=== PATIENT | male | born 2000 ===

== ENCOUNTER 2020-07-10 07:03 | Outpatient (REF) | payer OTHER, SELFPAY ==
[2020-07-10 07:54] LABS: MANUAL DIFF FLAG NO
[2020-07-10 08:11] LABS: Estimated Average Glucose 80 mg/dL; Hemoglobin A1c % 4.4 %
[2020-07-10 08:12] LABS: Basophils Percent Auto 0.3 % (0-2); Eosinophils Absolute Auto 0.3 X10*3/uL (0.0-0.4); Hematocrit 38.5 % (42-52); Hemoglobin 12.4 g/dl (14.0-18.0); Imm Gran Abs Auto 0.04 X10*3/uL (0.00-0.03); Imm Gran Pct Auto 0.3 % (0.0-0.4); Lymphocytes Absolute Auto 2.8 X10*3/uL (1.2-4.9); Lymphocytes Percent Auto 24.2 % (20-40); Mean Corpuscular HGB Conc 32.2 g/dl (31.0-36.0); Mean Corpuscular Hemoglobin 26.4 pg (27.0-33.0); Mean Corpuscular Volume 82.1 fL (80-98); Mean Platelet Volume 9.5 fL (9.4-12.4); Monocytes Absolute Auto 0.8 X10*3/uL (0.1-1.2); Monocytes Percent Auto 6.6 % (2-11); Neutrophils Absolute Auto 7.5 X10*3/uL (2.0-8.3); Neutrophils Percent Auto 65.6 % (45-73); Platelet Count 363 X10*3/uL (160-400); Red Blood Count 4.69 X10*6/uL (4.60-5.80); White Blood Count 11.4 X10*3/uL (4.8-10.8)
[2020-07-10 08:21] LABS: Lithium 1.19 mmol/L (0.60-1.20)
[2020-07-10 08:25] LABS: Alanine Aminotransferase 60 U/L (0-40); Albumin Level 4.3 g/dL (3.5-5.0); Alkaline Phosphatase 103 U/L (39-117); Anion Gap 11 (12-20); Aspartate Amino Transferase 18 U/L (5-37); Bilirubin Total 0.5 mg/dL (0.0-1.0); Blood Urea Nitrogen 10 mg/dL (9-16); Calcium 9.5 mg/dL (8.4-10.2); Carbon Dioxide 25 mmol/L (22-29); Chloride 108 mmol/L (96-108); Cholesterol 161 mg/dL; Estimated Glomerular Filt Rate > 60; Glucose Fasting 99 mg/dL (60-99); HDL Cholesterol 28 mg/dL; Iron 96 mcg/dL (45-160); LDL Cholesterol Calculated 92 mg/dl; Magnesium 2.2 mg/dL (1.6-2.6); Percent Iron Saturation 33 % (15-50); Sodium 140 mmol/L (135-145); Total Iron Binding Capacity 291 mcg/dL (228-428); Total Protein 7.4 g/dL (6.5-8.0); Triglycerides 207 mg/dL; Unsaturated Iron Binding 195 ug/dL
[2020-07-10 09:09] LABS: Ferritin 189 ng/mL (20-250); Vitamin D 25-OH Total 21.6 ng/mL (>30)
[2020-07-10 09:25] LABS: Folate 9.8 ng/mL (> or = 4.0); Vitamin B12 336 pg/mL (200-900)
[2020-07-10 09:38] LABS: T4 Thyroxine 9.5 ug/dL (4.5-12.0)
[2020-07-10 10:02] LABS: TSH reflex Free T4 < 0.01 mIU/mL (0.32-4.0)
[2020-07-10 11:01] LABS: Free T4 (Free Thyroxine) 1.41 ng/dL (0.71-1.85)
[2020-07-11 18:37] LABS: Prolactin 57.8 ng/mL (2.0-18.0)
== END 2020-07-10 07:04 | disposition home or self-care (01) ==
LOC: HO.LAB 07:03
PROVIDERS: Visit Provider Counselor Addiction (Substance Use Disorder)
DX: F84.0 Autistic disorder (principal); F25.1 Schizoaffective disorder, depressive type; F41.0 Panic disorder [episodic paroxysmal anxiety]; E03.9 Hypothyroidism, unspecified; E66.09 Other obesity due to excess calories; Z79.899 Other long term (current) drug therapy
CPT/HCPCS: 36415; 80053; 80061; 80178; 82306; 82607; 82728; 82746; 83036; 83540; 83735; 84146; 84436; 84439; 84443; 85025

== ENCOUNTER 2020-09-09 10:11 | Emergency (ER) | payer OTHER, SELFPAY ==
[2020-09-09 10:57] VITALS: BP 132/80; PULSE 94; RESP 16; TEMP 37.3; O2SAT 99; BMI 42.5
--- NOTE | 2020-09-09 11:45 | ED_ITS ---
HPI - Skin/Abscess/Foreign Bdy General Chief complaint: Skin/Abscess/Foreign Body Stated complaint: itchy scalp Time Seen by Provider: 09/09/20 11:12 Source: patient Mode of arrival: ambulatory Limitations: no limitations History of Present Illness HPI narrative: 20 y/o male with history of autism, schizophrenia who presents to the ER with 2 areas of itchy, flakey areas on his scalp for the last few days as well as painful reddened area on the back of his neck. He is concerned he is going to lose his hair. His mom used anti-itching lice shampoo last night with no improvement. No history of lice and no known nits. MD complaint: abscess/boil and lesion Onset (ago): day(s) (3) Tetanus up to date: unsure Location: head and neck Severity: mild Quality: burning, aching and pruritic Pain Consistency: intermittent Relieving factors: none Exacerbating factors: none Context: none Associated symptoms: itching Treatments prior to arrival: none Related Data Previous Rx's Medication Instructions Recorded doxycycline monohydrate 100 mg PO BID #14 tab 09/09/20 Allergies Allergy/AdvReac Type Severity Reaction Status Date / Time Penicillins [PENICILLINS] Allergy Intermediate RASH Unverified 05/29/20 16:56 ibuprofen [From MOTRIN] Allergy Unknown RASH Unverified 05/29/20 16:56 aspartame [ASPARTAME] AdvReac Intermediate VOMITING Unverified 07/10/20 08:24 quetiapine [From SEROQUEL] AdvReac Unknown AGITATION Unverified 05/29/20 16:56 Motrin Allergy Unknown turns red Uncoded 07/19/12 00:00 Penicillin Allergy Unknown rash Uncoded 07/19/12 00:00 Review of Systems Review of Systems: Constitutional: No Fever, No Chills Cardiovascular: No Chest Pain, No SOB, No Orthopnea, No Edema Genitourinary: No Dysuria, No Urinary Frequency, No Hematuria Musculoskeletal: No joint pain, No Myalgias Skin: + Skin Lesions, + rash Neuro: No Dizziness, No Headache Psych: + Anxiety/Panic, No Depression Heme/Lymph: No Bruising, No Lymphadenopathy PMFSH Past Medical History Attestation statement: The following information was validated with the patient. Medical History Asthma Autistic disorder Depression Schizophrenia Social History Social History Advance Directives: No Advance Directives Information Provided: No Physical Exam Vital Signs: Vital Signs: Last Vital Signs Temp 99.2 F 09/09/20 10:57 Pulse 94 09/09/20 10:57 Resp 16 09/09/20 10:57 BP 132/80 09/09/20 10:57 Pulse Ox 99 09/09/20 10:57 Body Mass Index 42.5 Appearance: Alert. Oriented X3. No acute distress. HEENT: scalp with 2 small areas of flakey skin, one right temporal area and other on vertex, no surrounding erythema or drainge, no scalp nits. Neck: 2-3 cm erythematous, warm tender indurated area with small area of central fluctuance along posterior hairline. no red streaking. no LAD. CVS: Normal heart rate and rhythm. Pulses normal. Respiratory: No respiratory distress. Skin: Skin warm and dry. Normal skin color. Normal skin turgor. No rashes. Extremities: no LE edema Neuro: Oriented X 3. No motor deficit. No sensory deficit. Course Course Course Narrative: 20 y/o male presenting with itchy areas on his scalp consistent with tinea capitus as well as small posterior neck abscess. Will place on abx for this. Management of both diagnoses were discussed and patient will f/u with his PCP this week. Stable for d/c. Procedures Abscess I/D Site: neck Technique: incised with blade Sent for culture/gram staining?: No Irrigation: Yes Packing used?: none MDM - Skin/Abscess/Foreign Bdy Differential Diagnosis Differential diagnosis: Likely abscess of skin or subcutaneous tissue, cellulitis, eczema and contact dermatitis Medical Records Attestation: I reviewed the patient's medical records. Critical Care Time Critical Care Time Critical Care Time: No Discharge Plan Discharge Clinical Impression: Tinea capitis Abscess of skin or subcutaneous tissue Qualifiers: Site of cutaneous abscess: neck Qualified Code(s): L02.11 - Cutaneous abscess of neck Cellulitis Qualifiers: Site of cellulitis: neck Qualified Code(s): L03.221 - Cellulitis of neck Patient Disposition: Home, Self-Care Instructions: Tinea Capitis (ED), Abscess (ED) Additional Instructions: You have small patches of a fungal infection on your scalp. This is easily treated with Selsun Blue shampoo which is found in your local drug store or grocery store. You also have a small bacterial infection on the back of your neck. Take the prescribed antibiotics for this. Use warm compresses to the area several times per day. Follow up with your doctor this week. If you have worsening redness, pain, swelling of the area call your doctor or come back to the ER for further evaluation. Prescriptions: New doxycycline monohydrate 100 mg tablet 100 mg PO BID Qty: 14 RF: 0 Print Language: Amharic
== END 2020-09-09 12:01 | disposition home or self-care (01) ==
PROVIDERS: Emergency Provider Emergency Medicine Emergency Medical Services; PCP Pediatrics
DX: L02.11 Cutaneous abscess of neck (principal); B35.0 Tinea barbae and tinea capitis; L03.221 Cellulitis of neck
CPT/HCPCS: 10060; 99282; 99284

== ENCOUNTER 2020-10-22 07:10 | Outpatient (REF) | payer OTHER, SELFPAY ==
[2020-10-22 08:11] LABS: MANUAL DIFF FLAG NO
[2020-10-22 08:17] LABS: Basophils Absolute Auto 0.1 X10*3/uL (0.0-0.2); Basophils Percent Auto 0.5 % (0-2); Eosinophils Absolute Auto 0.4 X10*3/uL (0.0-0.4); Eosinophils Percent Auto 3.4 % (0-4); Hematocrit 37.7 % (42-52); Hemoglobin 12.4 g/dl (14.0-18.0); Imm Gran Abs Auto 0.05 X10*3/uL (0.00-0.03); Imm Gran Pct Auto 0.5 % (0.0-0.4); Lymphocytes Absolute Auto 2.6 X10*3/uL (1.2-4.9); Lymphocytes Percent Auto 24.1 % (20-40); Mean Corpuscular HGB Conc 32.9 g/dl (31.0-36.0); Mean Corpuscular Hemoglobin 27.1 pg (27.0-33.0); Mean Corpuscular Volume 82.3 fL (80-98); Mean Platelet Volume 9.5 fL (9.4-12.4); Monocytes Absolute Auto 0.7 X10*3/uL (0.1-1.2); Monocytes Percent Auto 6.2 % (2-11); Neutrophils Percent Auto 65.3 % (45-73); Platelet Count 369 X10*3/uL (160-400); Red Blood Count 4.58 X10*6/uL (4.60-5.80); Red Cell Distribution Width 13.4 % (11.0-16.0); White Blood Count 10.7 X10*3/uL (4.8-10.8)
[2020-10-22 08:25] LABS: Glucose Urine UA NEG (NEG); Leukocyte Esterase Urine NEG (NEG); Nitrite Urine NEG (NEG); Specific Gravity - Urine <= 1.005 (1.005-1.025); Urine Blood NEG (NEG); Urine Ketones NEG (NEG); Urine Protein NEG (NEG-TRACE)
[2020-10-22 08:27] LABS: Color Urine STRAW
[2020-10-22 08:28] LABS: Appearance Urine CLEAR
[2020-10-22 08:44] LABS: Alanine Aminotransferase 41 U/L (0-40); Albumin Level 4.3 g/dL (3.5-5.0); Alkaline Phosphatase 111 U/L (39-117); Anion Gap 10 (12-20); Aspartate Amino Transferase 13 U/L (5-37); Bilirubin Total 0.4 mg/dL (0.0-1.0); Blood Urea Nitrogen 9 mg/dL (9-16); Calcium 9.8 mg/dL (8.4-10.2); Carbon Dioxide 27 mmol/L (22-29); Chloride 109 mmol/L (96-108); Cholesterol 166 mg/dL; Estimated Glomerular Filt Rate > 60; Glucose Random 91 mg/dL (60-115); HDL Cholesterol 32 mg/dL; LDL Cholesterol Calculated 107 mg/dl; Potassium 4.1 mmol/L (3.3-5.1); Sodium 142 mmol/L (135-145); Total Protein 7.1 g/dL (6.5-8.0); Triglycerides 135 mg/dL
[2020-10-22 08:58] LABS: TSH reflex Free T4 < 0.01 uIU/mL (0.32-4.0)
[2020-10-22 09:35] LABS: Folate 9.2 ng/mL (> or = 4.0); Vitamin B12 283 pg/mL (200-900)
[2020-10-22 09:41] LABS: Estimated Average Glucose 80 mg/dL; Hemoglobin A1c % 4.4 %
[2020-10-23 02:32] LABS: Prolactin 53.9 ng/mL (2.0-18.0)
[2020-10-23 09:13] LABS: Triiodothyronine T3 Free 3.2 pg/mL (3.0-4.7)
== END 2020-10-22 07:11 | disposition home or self-care (01) ==
LOC: HO.LAB 07:10
PROVIDERS: PCP Pediatrics; Visit Provider Counselor Mental Health
DX: F84.0 Autistic disorder (principal)
CPT/HCPCS: 36415; 80053; 80061; 80178; 81003; 82607; 82746; 83036; 84146; 84439; 84443; 84481; 85025

== ENCOUNTER 2020-11-05 06:54 | Outpatient (REF) | payer OTHER, SELFPAY ==
[2020-11-05 08:01] LABS: MANUAL DIFF FLAG NO
[2020-11-05 08:06] LABS: Basophils Absolute Auto 0.1 X10*3/uL (0.0-0.2); Basophils Percent Auto 0.6 % (0-2); Eosinophils Absolute Auto 0.4 X10*3/uL (0.0-0.4); Eosinophils Percent Auto 3.9 % (0-4); Hematocrit 35.7 % (42-52); Hemoglobin 12.1 g/dl (14.0-18.0); Imm Gran Abs Auto 0.04 X10*3/uL (0.00-0.03); Imm Gran Pct Auto 0.4 % (0.0-0.4); Lymphocytes Absolute Auto 2.9 X10*3/uL (1.2-4.9); Lymphocytes Percent Auto 27.1 % (20-40); Mean Corpuscular HGB Conc 33.9 g/dl (31.0-36.0); Mean Corpuscular Hemoglobin 27.8 pg (27.0-33.0); Mean Corpuscular Volume 81.9 fL (80-98); Mean Platelet Volume 9.6 fL (9.4-12.4); Monocytes Absolute Auto 0.8 X10*3/uL (0.1-1.2); Neutrophils Absolute Auto 6.6 X10*3/uL (2.0-8.3); Platelet Count 344 X10*3/uL (160-400); Red Blood Count 4.36 X10*6/uL (4.60-5.80); Red Cell Distribution Width 13.3 % (11.0-16.0); White Blood Count 10.8 X10*3/uL (4.8-10.8)
[2020-11-05 08:20] LABS: Estimated Average Glucose 77 mg/dL; Hemoglobin A1c % 4.3 %
[2020-11-05 08:34] LABS: Alanine Aminotransferase 42 U/L (0-40); Albumin Level 4.2 g/dL (3.5-5.0); Alkaline Phosphatase 112 U/L (39-117); Anion Gap 10 (12-20); Aspartate Amino Transferase 13 U/L (5-37); Bilirubin Total 0.3 mg/dL (0.0-1.0); Blood Urea Nitrogen 10 mg/dL (9-16); Calcium 9.7 mg/dL (8.4-10.2); Carbon Dioxide 27 mmol/L (22-29); Chloride 108 mmol/L (96-108); Cholesterol 170 mg/dL; Estimated Glomerular Filt Rate > 60; Glucose Random 104 mg/dL (60-115); HDL Cholesterol 29 mg/dL; LDL Cholesterol Calculated 109 mg/dl; Potassium 3.8 mmol/L (3.3-5.1); Sodium 141 mmol/L (135-145); Total Protein 7.1 g/dL (6.5-8.0); Triglycerides 161 mg/dL
[2020-11-05 08:57] LABS: Free T4 (Free Thyroxine) 1.23 ng/dL (0.71-1.85); Thyroid Stimulating Hormone 0.01 uIU/mL (0.32-4.0); Vitamin D 25-OH Total 19.2 ng/mL (>30)
[2020-11-05 10:09] LABS: Reflex LDLD? No
[2020-11-06 09:27] LABS: Thyroglobulin Antibodies <1 IU/mL (< or = 1); Thyroid Peroxidase Antibodies 2 IU/mL (<9)
== END 2020-11-05 06:55 | disposition home or self-care (01) ==
LOC: HO.LAB 06:54
PROVIDERS: PCP Pediatrics; Visit Provider Pediatrics
DX: E03.9 Hypothyroidism, unspecified (principal)
CPT/HCPCS: 36415; 80053; 80061; 82306; 83036; 84439; 84443; 85025; 86376; 86800

== ENCOUNTER 2020-11-22 07:13 | Outpatient (REF) | payer OTHER, SELFPAY ==
[2020-11-22 08:04] LABS: Anion Gap 10 (12-20); Blood Urea Nitrogen 12 mg/dL (9-16); Calcium 10.1 mg/dL (8.4-10.2); Carbon Dioxide 28 mmol/L (22-29); Chloride 109 mmol/L (96-108); Estimated Glomerular Filt Rate > 60; Potassium 4.3 mmol/L (3.3-5.1); Sodium 143 mmol/L (135-145)
== END 2020-11-22 07:14 | disposition home or self-care (01) ==
LOC: HO.LAB 07:13
PROVIDERS: Visit Provider Counselor Mental Health
DX: F84.0 Autistic disorder (principal)
CPT/HCPCS: 36415; 80051; 80178; 82310; 82565; 84520

== ENCOUNTER 2021-02-10 07:58 | Outpatient (REF) | payer OTHER, SELFPAY ==
[2021-02-10 09:57] LABS: Anion Gap 11 (12-20); Carbon Dioxide 25 mmol/L (22-29); Chloride 110 mmol/L (96-108); Potassium 3.9 mmol/L (3.3-5.1); Sodium 142 mmol/L (135-145)
[2021-02-10 09:58] LABS: Blood Urea Nitrogen 10 mg/dL (9-16); Calcium 10.2 mg/dL (8.4-10.2); Estimated Glomerular Filt Rate > 60; Free T4 (Free Thyroxine) 1.23 ng/dL (0.71-1.85); Glucose Fasting 102 mg/dL (60-99); Thyroid Stimulating Hormone 0.45 uIU/mL (0.32-4.0)
[2021-02-10 11:05] LABS: Osmolality, Serum 300 mosm/kg (281-305)
[2021-02-10 12:40] LABS: Osmolality Urine 91 mosm/kg (373-1093)
[2021-02-12 00:56] LABS: Adrenocorticotropic Hormone 41 pg/mL (6-50)
[2021-02-12 06:07] LABS: Triiodothyronine T3 Total 85 ng/dL (86-192)
[2021-02-13 06:47] LABS: Follicle Stimulating Hormone 2.3 mIU/mL (1.6-8.0); Lutenizing Hormone 2.4 mIU/mL (1.5-9.3); Prolactin Undiluted 54.4 ng/mL (2.0-18.0)
[2021-02-13 12:51] LABS: IGF-1 (Somatomedin C) 158 ng/mL (83-456); IGF-1 Z Score (Male) -1.1 SD (-2.0 - +2.0)
[2021-02-16 04:11] LABS: Testosterone-Albumin 4.6 g/dL (3.6-5.1); Testosterone-Bioavailable 93.7 ng/dL (110.0-575.0); Testosterone-Free 44.6 pg/mL (46.0-224.0); Testosterone-SHBG 6 nmol/L (10-50); Testosterone-Total 140 ng/dL (250-1100)
== END 2021-02-10 07:59 | disposition home or self-care (01) ==
LOC: HO.10HDL 07:58
PROVIDERS: PCP Pediatrics; Visit Provider Internal Medicine Endocrinology, Diabetes & Metabolism
DX: E03.9 Hypothyroidism, unspecified (principal); E22.1 Hyperprolactinemia; Z79.899 Other long term (current) drug therapy
CPT/HCPCS: 36415; 80048; 82024; 82533; 83001; 83002; 83930; 83935; 84146; 84270; 84305; 84402; 84403; 84439; 84443; 84480; 99202

== ENCOUNTER 2021-02-16 13:24 | Outpatient (REF) | payer OTHER, SELFPAY ==
--- NOTE | ~2021-02-16 | MR_ITS ---
EXAMINATION: MR BRAIN WITHOUT AND WITH CONTRAST CLINICAL INFORMATION: Hyperprolactinemia. COMPARISON: No relevant prior imaging. TECHNIQUE: Multiplanar MR imaging of the brain was performed without and with contrast. A total of 5 mm Gadavist was utilized for this examination. FINDINGS: Dedicated imaging through the sella turcica reveals homogeneous enhancement within the anterior lobe of the pituitary gland with no clear evidence of an identifiable intrasellar mass. The overall height of the pituitary tissue is within limits of normal variation measuring 0.5 cm. No suprasellar mass effect or chiasmatic compression. The pituitary stalk is midline. Cavernous sinuses enhance symmetrically. Cavernous internal carotid artery flow voids are maintained. Postcontrast images of the whole brain reveal no abnormal mass or enhancement within the intracranial compartment. No intracranial mass effect midline shift. Lateral and third ventricles are normal. No hydrocephalus. Midline structures including the cervicomedullary junction are normal. No acute bone marrow signal changes. There is no mastoid middle ear effusion. Mild paranasal sinus disease primarily affecting the ethmoid air cells. Globes and orbits are symmetric. MR/MR head/brain wo/w con IMPRESSION: Normal brain MRI. No identifiable pituitary microadenoma.
== END 2021-02-16 13:25 | disposition home or self-care (01) ==
LOC: HO.MRI 13:24
PROVIDERS: Visit Provider Internal Medicine Endocrinology, Diabetes & Metabolism
DX: E22.1 Hyperprolactinemia (principal)
CPT/HCPCS: 70553; A9585

== ENCOUNTER 2021-02-19 06:34 | Outpatient (REF) | payer OTHER, SELFPAY ==
[2021-02-19 07:38] LABS: MANUAL DIFF FLAG NO
[2021-02-19 07:42] LABS: Basophils Percent Auto 0.4 % (0-2); Eosinophils Absolute Auto 0.4 X10*3/uL (0.0-0.4); Eosinophils Percent Auto 3.5 % (0-4); Hemoglobin 12.8 g/dl (14.0-18.0); Imm Gran Abs Auto 0.03 X10*3/uL (0.00-0.03); Imm Gran Pct Auto 0.3 % (0.0-0.4); Lymphocytes Absolute Auto 2.9 X10*3/uL (1.2-4.9); Lymphocytes Percent Auto 26.4 % (20-40); Mean Corpuscular HGB Conc 32.8 g/dl (31.0-36.0); Mean Corpuscular Hemoglobin 27.4 pg (27.0-33.0); Mean Corpuscular Volume 83.3 fL (80-98); Mean Platelet Volume 9.4 fL (9.4-12.4); Monocytes Absolute Auto 0.6 X10*3/uL (0.1-1.2); Monocytes Percent Auto 5.1 % (2-11); Neutrophils Absolute Auto 6.9 X10*3/uL (2.0-8.3); Neutrophils Percent Auto 64.3 % (45-73); Platelet Count 380 X10*3/uL (160-400); Red Blood Count 4.68 X10*6/uL (4.60-5.80); Red Cell Distribution Width 13.2 % (11.0-16.0); White Blood Count 10.8 X10*3/uL (4.8-10.8)
[2021-02-19 07:50] LABS: Estimated Average Glucose 85 mg/dL; Hemoglobin A1c % 4.6 %
[2021-02-19 08:00] LABS: Lithium 1.24 mmol/L (0.60-1.20)
[2021-02-19 08:03] LABS: Alanine Aminotransferase 29 U/L (0-40); Albumin Level 4.4 g/dL (3.5-5.0); Alkaline Phosphatase 123 U/L (39-117); Anion Gap 10 (12-20); Aspartate Amino Transferase 11 U/L (5-37); Bilirubin Direct 0.2 mg/dL (0.0-0.5); Bilirubin Total 0.5 mg/dL (0.0-1.0); Blood Urea Nitrogen 14 mg/dL (9-16); Calcium 10.3 mg/dL (8.4-10.2); Carbon Dioxide 28 mmol/L (22-29); Chloride 109 mmol/L (96-108); Cholesterol 184 mg/dL; Estimated Glomerular Filt Rate > 60; Glucose Random 86 mg/dL (60-115); HDL Cholesterol 29 mg/dL; LDL Cholesterol Calculated 118 mg/dl; Potassium 4.1 mmol/L (3.3-5.1); Sodium 143 mmol/L (135-145); Total Protein 7.4 g/dL (6.5-8.0); Triglycerides 188 mg/dL
[2021-02-19 08:28] LABS: Thyroid Stimulating Hormone 0.35 uIU/mL (0.32-4.0)
[2021-02-19 08:50] LABS: Procalcitonin 0.08 ng/mL
[2021-02-19 09:19] LABS: Folate 10.1 ng/mL (> or = 4.0); Vitamin B12 242 pg/mL (200-900)
== END 2021-02-19 06:35 | disposition home or self-care (01) ==
LOC: HO.LAB 06:34
PROVIDERS: Visit Provider Counselor Mental Health
DX: F25.1 Schizoaffective disorder, depressive type (principal)
CPT/HCPCS: 36415; 80053; 80061; 80076; 80178; 82248; 82607; 82746; 83036; 84145; 84443; 85025

== ENCOUNTER 2021-03-31 07:51 | Outpatient (REF) | payer OTHER, SELFPAY ==
[2021-03-31 10:52] LABS: Free T4 (Free Thyroxine) 1.15 ng/dL (0.71-1.85); Thyroid Stimulating Hormone 1.94 uIU/mL (0.32-4.0)
== END 2021-03-31 07:52 | disposition home or self-care (01) ==
LOC: HO.10HDL 07:51
PROVIDERS: Visit Provider Internal Medicine Endocrinology, Diabetes & Metabolism
DX: E03.9 Hypothyroidism, unspecified (principal); E22.1 Hyperprolactinemia; Z79.899 Other long term (current) drug therapy
CPT/HCPCS: 36415; 84439; 84443; 99212

== ENCOUNTER 2021-04-03 07:42 | Outpatient (REF) | payer OTHER, SELFPAY ==
[2021-04-03 10:56] LABS: Free T4 (Free Thyroxine) 1.08 ng/dL (0.71-1.85); Thyroid Stimulating Hormone 1.76 uIU/mL (0.32-4.0)
== END 2021-04-03 07:43 | disposition home or self-care (01) ==
LOC: HO.10HDL 07:42
PROVIDERS: Visit Provider Internal Medicine Endocrinology, Diabetes & Metabolism
DX: E03.9 Hypothyroidism, unspecified (principal)
CPT/HCPCS: 36415; 84439; 84443

== ENCOUNTER 2021-09-23 06:51 | Outpatient (REF) | payer OTHER, SELFPAY ==
[2021-09-23 07:08] LABS: MANUAL DIFF FLAG NO
[2021-09-23 08:19] LABS: Basophils Absolute Auto 0.1 X10*3/uL (0.0-0.2); Basophils Percent Auto 0.5 % (0-2); Eosinophils Absolute Auto 0.4 X10*3/uL (0.0-0.4); Eosinophils Percent Auto 2.8 % (0-4); Hematocrit 37.2 % (42.0-52.0); Hemoglobin 12.3 g/dl (14.0-18.0); Imm Gran Abs Auto 0.04 X10*3/uL (0.00-0.03); Imm Gran Pct Auto 0.3 % (0.0-0.4); Lymphocytes Absolute Auto 2.4 X10*3/uL (1.2-4.9); Lymphocytes Percent Auto 18.4 % (20-40); Mean Corpuscular HGB Conc 33.1 g/dl (31.0-36.0); Mean Corpuscular Hemoglobin 28.1 pg (27.0-33.0); Mean Corpuscular Volume 85.1 fL (80.0-98.0); Mean Platelet Volume 9.6 fL (9.4-12.4); Monocytes Absolute Auto 0.8 X10*3/uL (0.1-1.2); Monocytes Percent Auto 6.1 % (2-11); Neutrophils Absolute Auto 9.4 x10*3/uL (2.0-8.3); Neutrophils Percent Auto 71.9 % (45-73); Platelet Count 381 X10*3/uL (160-400); Red Blood Count 4.37 X10*6/uL (4.60-5.80); Red Cell Distribution Width 13.3 % (11.0-16.0); White Blood Count 13.1 X10*3/uL (4.8-10.8)
[2021-09-23 08:31] LABS: Lithium 1.43 mmol/L (0.60-1.20)
[2021-09-23 08:37] LABS: Estimated Average Glucose 88 mg/dL; Hemoglobin A1c % 4.7 %
[2021-09-23 08:40] LABS: Anion Gap 9 (12-20); Blood Urea Nitrogen 8 mg/dL (9-16); Calcium 10.3 mg/dL (8.4-10.2); Carbon Dioxide 28 mmol/L (22-29); Chloride 109 mmol/L (96-108); Cholesterol 172 mg/dL; Estimated Glomerular Filt Rate 56; HDL Cholesterol 25 mg/dL; LDL Cholesterol Calculated 102 mg/dl; Potassium 4.2 mmol/L (3.3-5.1); Sodium 142 mmol/L (135-145); Triglycerides 228 mg/dL
== END 2021-09-23 06:52 | disposition home or self-care (01) ==
LOC: HO.LAB 06:51
PROVIDERS: Visit Provider Counselor Mental Health
DX: F25.1 Schizoaffective disorder, depressive type (principal); Z79.899 Other long term (current) drug therapy
CPT/HCPCS: 36415; 80051; 80061; 80178; 82310; 82565; 83036; 84146; 84520; 85025

== ENCOUNTER 2021-10-01 15:56 | Outpatient (REF) | payer OTHER, SELFPAY ==
--- NOTE | ~2021-10-01 | XR_ITS ---
EXAMINATION: XR ABDOMEN COMPLETE CLINICAL INDICATION: Constipation COMPARISON: None TECHNIQUE: 2 views of the abdomen. FINDINGS: The bowel gas pattern is normal with no evidence of ileus or obstruction. Moderate stool burden in the right colon and proximal transverse colon. No unusual soft tissue calcifications are noted. The bones are unremarkable. XR/XR abdomen min 2V IMPRESSION: Moderate stool burden.
== END 2021-10-01 15:57 | disposition home or self-care (01) ==
LOC: HO.XRAY 15:56
PROVIDERS: PCP Pediatrics; Visit Provider Pediatrics
DX: K59.00 Constipation, unspecified (principal)
CPT/HCPCS: 74019

== ENCOUNTER 2021-11-23 07:30 | Outpatient (REF) | payer OTHER, SELFPAY ==
[2021-11-23 07:48] LABS: MANUAL DIFF FLAG NO
[2021-11-23 08:23] LABS: Anion Gap 10 (12-20); Blood Urea Nitrogen 10 mg/dL (9-16); Carbon Dioxide 26 mmol/L (22-29); Chloride 109 mmol/L (96-108); Estimated Glomerular Filt Rate 54; Potassium 4.3 mmol/L (3.3-5.1); Sodium 141 mmol/L (135-145)
[2021-11-23 08:40] LABS: Basophils Percent Auto 0.3 % (0-2); Eosinophils Absolute Auto 0.4 X10*3/uL (0.0-0.4); Eosinophils Percent Auto 3.4 % (0-4); Hematocrit 39.2 % (42.0-52.0); Hemoglobin 12.4 g/dl (14.0-18.0); Imm Gran Abs Auto 0.07 X10*3/uL (0.00-0.03); Imm Gran Pct Auto 0.6 % (0.0-0.4); Lymphocytes Absolute Auto 3.2 X10*3/uL (1.2-4.9); Lymphocytes Percent Auto 25.4 % (20-40); Mean Corpuscular HGB Conc 31.6 g/dl (31.0-36.0); Mean Corpuscular Hemoglobin 27.6 pg (27.0-33.0); Mean Corpuscular Volume 87.1 fL (80.0-98.0); Mean Platelet Volume 9.7 fL (9.4-12.4); Monocytes Absolute Auto 0.8 X10*3/uL (0.1-1.2); Neutrophils Percent Auto 64.3 % (45-73); Platelet Count 375 X10*3/uL (160-400); Red Cell Distribution Width 13.4 % (11.0-16.0); White Blood Count 12.5 X10*3/uL (4.8-10.8)
== END 2021-11-23 07:31 | disposition home or self-care (01) ==
LOC: HO.LAB 07:30
PROVIDERS: PCP Pediatrics; Visit Provider Counselor Mental Health
DX: F25.1 Schizoaffective disorder, depressive type (principal); Z79.899 Other long term (current) drug therapy
CPT/HCPCS: 36415; 80051; 80178; 82310; 82565; 84520; 85025

== ENCOUNTER 2021-12-01 06:54 | Outpatient (REF) | payer OTHER, SELFPAY ==
[2021-12-01 07:58] LABS: Lithium 1.45 mmol/L (0.60-1.20)
[2021-12-01 08:01] LABS: Anion Gap 12 (12-20); Blood Urea Nitrogen 11 mg/dL (9-16); Calcium 10.2 mg/dL (8.4-10.2); Carbon Dioxide 26 mmol/L (22-29); Chloride 107 mmol/L (96-108); Estimated Glomerular Filt Rate 46; Potassium 4.2 mmol/L (3.3-5.1); Sodium 141 mmol/L (135-145)
== END 2021-12-01 06:55 | disposition home or self-care (01) ==
LOC: HO.LAB 06:54
PROVIDERS: PCP Pediatrics; Visit Provider Counselor Mental Health
DX: F25.1 Schizoaffective disorder, depressive type (principal); Z51.81 Encounter for therapeutic drug level monitoring; Z79.899 Other long term (current) drug therapy
CPT/HCPCS: 36415; 80051; 80178; 82310; 82565; 84520

== ENCOUNTER 2021-12-04 11:41 | Outpatient (REF) | payer OTHER, SELFPAY ==
[2021-12-04 13:58] LABS: Free T4 (Free Thyroxine) 1.07 ng/dL (0.71-1.85); Thyroid Stimulating Hormone 1.59 uIU/mL (0.32-4.0)
== END 2021-12-04 11:42 | disposition home or self-care (01) ==
LOC: HO.LAB 11:41
PROVIDERS: PCP Pediatrics; Visit Provider Internal Medicine Endocrinology, Diabetes & Metabolism
DX: E03.9 Hypothyroidism, unspecified (principal)
CPT/HCPCS: 36415; 84439; 84443

== ENCOUNTER 2021-12-07 07:59 | Outpatient (REF) | payer OTHER, SELFPAY ==
[2021-12-07 09:57] LABS: Lithium 1.03 mmol/L (0.60-1.20)
== END 2021-12-07 08:00 | disposition home or self-care (01) ==
LOC: HO.LAB 07:59
PROVIDERS: PCP Pediatrics; Visit Provider Counselor Mental Health
DX: F25.1 Schizoaffective disorder, depressive type (principal); E03.9 Hypothyroidism, unspecified; E22.1 Hyperprolactinemia; Z79.899 Other long term (current) drug therapy
CPT/HCPCS: 36415; 80178; 99212

== ENCOUNTER 2021-12-15 07:35 | Outpatient (REF) | payer OTHER, SELFPAY ==
[2021-12-15 08:43] LABS: Lithium 0.92 mmol/L (0.60-1.20)
== END 2021-12-15 07:36 | disposition home or self-care (01) ==
LOC: HO.LAB 07:35
PROVIDERS: PCP Pediatrics; Visit Provider Counselor Mental Health
DX: F84.0 Autistic disorder (principal); F25.1 Schizoaffective disorder, depressive type; F41.0 Panic disorder [episodic paroxysmal anxiety]; Z79.899 Other long term (current) drug therapy
CPT/HCPCS: 36415; 80178

== ENCOUNTER 2021-12-22 07:12 | Outpatient (REF) | payer OTHER, SELFPAY ==
[2021-12-22 07:36] LABS: MANUAL DIFF FLAG NO
[2021-12-22 07:46] LABS: Basophils Absolute Auto 0.1 X10*3/uL (0.0-0.2); Basophils Percent Auto 0.5 % (0-2); Eosinophils Absolute Auto 0.4 X10*3/uL (0.0-0.4); Eosinophils Percent Auto 3.6 % (0-4); Hemoglobin 11.8 g/dl (14.0-18.0); Imm Gran Abs Auto 0.04 X10*3/uL (0.00-0.03); Imm Gran Pct Auto 0.4 % (0.0-0.4); Lymphocytes Absolute Auto 2.6 X10*3/uL (1.2-4.9); Lymphocytes Percent Auto 26.4 % (20-40); Mean Corpuscular HGB Conc 32.8 g/dl (31.0-36.0); Mean Corpuscular Volume 85.5 fL (80.0-98.0); Mean Platelet Volume 9.2 fL (9.4-12.4); Monocytes Absolute Auto 0.6 X10*3/uL (0.1-1.2); Monocytes Percent Auto 6.1 % (2-11); Neutrophils Absolute Auto 6.3 x10*3/uL (2.0-8.3); Platelet Count 341 X10*3/uL (160-400); Red Blood Count 4.21 X10*6/uL (4.60-5.80); Red Cell Distribution Width 13.8 % (11.0-16.0); White Blood Count 9.9 X10*3/uL (4.8-10.8)
[2021-12-22 09:27] LABS: Anion Gap 11 (12-20); Blood Urea Nitrogen 12 mg/dL (9-16); Calcium 9.9 mg/dL (8.4-10.2); Carbon Dioxide 26 mmol/L (22-29); Chloride 109 mmol/L (96-108); Estimated Glomerular Filt Rate > 60; Potassium 4.2 mmol/L (3.3-5.1); Sodium 142 mmol/L (135-145)
[2021-12-22 09:33] LABS: Lithium 0.94 mmol/L (0.60-1.20)
== END 2021-12-22 07:13 | disposition home or self-care (01) ==
LOC: HO.LABR 07:12
PROVIDERS: PCP Pediatrics; Visit Provider Counselor Mental Health
DX: F25.1 Schizoaffective disorder, depressive type (principal); F41.0 Panic disorder [episodic paroxysmal anxiety]; F84.0 Autistic disorder; Z79.899 Other long term (current) drug therapy
CPT/HCPCS: 36415; 80051; 80178; 82310; 82565; 84520; 85025

== ENCOUNTER 2021-12-30 07:13 | Outpatient (REF) | payer OTHER, SELFPAY ==
[2021-12-30 07:30] LABS: MANUAL DIFF FLAG NO
[2021-12-30 07:37] LABS: Basophils Absolute Auto 0.1 X10*3/uL (0.0-0.2); Basophils Percent Auto 0.7 % (0-2); Eosinophils Absolute Auto 0.3 X10*3/uL (0.0-0.4); Eosinophils Percent Auto 3.2 % (0-4); Hematocrit 37.4 % (42.0-52.0); Hemoglobin 12.4 g/dl (14.0-18.0); Imm Gran Abs Auto 0.07 X10*3/uL (0.00-0.03); Imm Gran Pct Auto 0.7 % (0.0-0.4); Lymphocytes Absolute Auto 2.5 X10*3/uL (1.2-4.9); Lymphocytes Percent Auto 24.1 % (20-40); Mean Corpuscular HGB Conc 33.2 g/dl (31.0-36.0); Mean Corpuscular Hemoglobin 28.1 pg (27.0-33.0); Mean Corpuscular Volume 84.8 fL (80.0-98.0); Monocytes Absolute Auto 0.6 X10*3/uL (0.1-1.2); Monocytes Percent Auto 5.6 % (2-11); Neutrophils Absolute Auto 6.9 x10*3/uL (2.0-8.3); Neutrophils Percent Auto 65.7 % (45-73); Platelet Count 367 X10*3/uL (160-400); Red Blood Count 4.41 X10*6/uL (4.60-5.80); Red Cell Distribution Width 13.7 % (11.0-16.0); White Blood Count 10.5 X10*3/uL (4.8-10.8)
[2021-12-30 08:41] LABS: Lithium 1.17 mmol/L (0.60-1.20)
[2021-12-30 08:50] LABS: Anion Gap 12 (12-20); Blood Urea Nitrogen 10 mg/dL (9-16); Calcium 10.1 mg/dL (8.4-10.2); Carbon Dioxide 26 mmol/L (22-29); Chloride 107 mmol/L (96-108); Estimated Glomerular Filt Rate 55; Potassium 3.9 mmol/L (3.3-5.1); Sodium 141 mmol/L (135-145)
== END 2021-12-30 07:14 | disposition home or self-care (01) ==
LOC: HO.LABR 07:13
PROVIDERS: Visit Provider Counselor Mental Health
DX: F25.1 Schizoaffective disorder, depressive type (principal); F84.0 Autistic disorder; F41.0 Panic disorder [episodic paroxysmal anxiety]; Z79.899 Other long term (current) drug therapy
CPT/HCPCS: 36415; 80051; 80178; 82310; 82565; 84520; 85025

== ENCOUNTER 2022-01-12 06:45 | Outpatient (REF) | payer OTHER, SELFPAY ==
[2022-01-12 07:55] LABS: Lithium 0.95 mmol/L (0.60-1.20)
[2022-01-12 07:59] LABS: Anion Gap 12 (12-20); Blood Urea Nitrogen 12 mg/dL (9-16); Calcium 10.2 mg/dL (8.4-10.2); Carbon Dioxide 26 mmol/L (22-29); Chloride 113 mmol/L (96-108); Estimated Glomerular Filt Rate 50; Potassium 4.5 mmol/L (3.3-5.1); Sodium 146 mmol/L (135-145)
== END 2022-01-12 06:46 | disposition home or self-care (01) ==
LOC: HO.LAB 06:45
PROVIDERS: PCP Pediatrics; Visit Provider Counselor Mental Health
DX: F25.1 Schizoaffective disorder, depressive type (principal); Z79.899 Other long term (current) drug therapy
CPT/HCPCS: 36415; 80051; 80178; 82310; 82565; 84520

== ENCOUNTER 2022-04-12 07:06 | Outpatient (REF) | payer OTHER, SELFPAY ==
[2022-04-12 08:20] LABS: Lithium 0.93 mmol/L (0.60-1.20)
== END 2022-04-12 07:07 | disposition home or self-care (01) ==
LOC: HO.LAB 07:06
PROVIDERS: PCP Internal Medicine; Visit Provider Counselor Mental Health
DX: F25.1 Schizoaffective disorder, depressive type (principal); Z79.899 Other long term (current) drug therapy
CPT/HCPCS: 36415; 80178

== ENCOUNTER 2022-05-25 08:14 | Outpatient (REF) | payer OTHER, SELFPAY ==
[2022-05-25 08:35] LABS: MANUAL DIFF FLAG NO
[2022-05-25 08:58] LABS: Basophils Absolute Auto 0.1 X10*3/uL (0.0-0.2); Basophils Percent Auto 0.6 % (0-2); Eosinophils Absolute Auto 0.4 X10*3/uL (0.0-0.4); Eosinophils Percent Auto 4.2 % (0-4); Hematocrit 40.4 % (42.0-52.0); Imm Gran Abs Auto 0.04 X10*3/uL (0.00-0.03); Imm Gran Pct Auto 0.4 % (0.0-0.4); Lymphocytes Absolute Auto 2.7 X10*3/uL (1.2-4.9); Lymphocytes Percent Auto 26.5 % (20-40); Mean Corpuscular HGB Conc 32.2 g/dl (31.0-36.0); Mean Corpuscular Hemoglobin 26.9 pg (27.0-33.0); Mean Corpuscular Volume 83.5 fL (80.0-98.0); Mean Platelet Volume 9.1 fL (9.4-12.4); Monocytes Absolute Auto 0.6 X10*3/uL (0.1-1.2); Monocytes Percent Auto 6.2 % (2-11); Neutrophils Absolute Auto 6.2 x10*3/uL (2.0-8.3); Neutrophils Percent Auto 62.1 % (45-73); Platelet Count 373 X10*3/uL (160-400); Red Blood Count 4.84 X10*6/uL (4.60-5.80); Red Cell Distribution Width 13.4 % (11.0-16.0)
[2022-05-25 09:08] LABS: Estimated Average Glucose 85 mg/dL; Hemoglobin A1c % 4.6 %
[2022-05-25 09:17] LABS: Lithium 1.19 mmol/L (0.60-1.20)
[2022-05-25 09:30] LABS: Alanine Aminotransferase 43 U/L (0-40); Albumin Level 4.4 g/dL (3.5-5.0); Alkaline Phosphatase 105 U/L (39-117); Anion Gap 12 (12-20); Aspartate Amino Transferase 15 U/L (5-37); Bilirubin Total 0.4 mg/dL (0.0-1.0); Blood Urea Nitrogen 9 mg/dL (9-16); Carbon Dioxide 28 mmol/L (22-29); Chloride 109 mmol/L (96-108); Cholesterol 182 mg/dL; Estimated Glomerular Filt Rate 56; Glucose Random 99 mg/dL (60-115); HDL Cholesterol 31 mg/dL; LDL Cholesterol Calculated 123 mg/dl; Potassium 4.2 mmol/L (3.3-5.1); Sodium 145 mmol/L (135-145); Total Protein 7.8 g/dL (6.5-8.0); Triglycerides 143 mg/dL
[2022-05-25 09:53] LABS: Thyroid Stimulating Hormone 0.29 uIU/mL (0.32-4.0)
== END 2022-05-25 08:15 | disposition home or self-care (01) ==
LOC: HO.LAB 08:14
PROVIDERS: PCP Internal Medicine; Visit Provider Internal Medicine
DX: Z00.01 Encounter for general adult medical examination with abnormal findings (principal); Z79.899 Other long term (current) drug therapy; E66.9 Obesity, unspecified; F20.0 Paranoid schizophrenia; F31.9 Bipolar disorder, unspecified; J45.909 Unspecified asthma, uncomplicated
CPT/HCPCS: 36415; 80053; 80061; 80178; 83036; 84443; 85025

== ENCOUNTER 2022-08-02 07:53 | Outpatient (REF) | payer OTHER, SELFPAY ==
[2022-08-02 08:07] LABS: MANUAL DIFF FLAG NO
[2022-08-02 08:25] LABS: Basophils Absolute Auto 0.1 X10*3/uL (0.0-0.2); Basophils Percent Auto 0.6 % (0-2); Eosinophils Absolute Auto 0.5 X10*3/uL (0.0-0.4); Eosinophils Percent Auto 3.2 % (0-4); Hematocrit 39.8 % (42.0-52.0); Hemoglobin 12.7 g/dl (14.0-18.0); Imm Gran Abs Auto 0.06 X10*3/uL (0.00-0.03); Imm Gran Pct Auto 0.4 % (0.0-0.4); Lymphocytes Absolute Auto 2.8 X10*3/uL (1.2-4.9); Lymphocytes Percent Auto 19.3 % (20-40); Mean Corpuscular HGB Conc 31.9 g/dl (31.0-36.0); Mean Corpuscular Hemoglobin 27.1 pg (27.0-33.0); Mean Platelet Volume 9.4 fL (9.4-12.4); Monocytes Absolute Auto 0.7 X10*3/uL (0.1-1.2); Monocytes Percent Auto 5.1 % (2-11); Neutrophils Absolute Auto 10.2 x10*3/uL (2.0-8.3); Neutrophils Percent Auto 71.4 % (45-73); Platelet Count 373 X10*3/uL (160-400); Red Blood Count 4.68 X10*6/uL (4.60-5.80); Red Cell Distribution Width 13.6 % (11.0-16.0); White Blood Count 14.2 X10*3/uL (4.8-10.8)
[2022-08-02 09:11] LABS: Lithium 1.29 mmol/L (0.60-1.20)
[2022-08-02 09:21] LABS: Anion Gap 11 (12-20); Blood Urea Nitrogen 12 mg/dL (9-16); Calcium 10.3 mg/dL (8.4-10.2); Carbon Dioxide 26 mmol/L (22-29); Chloride 109 mmol/L (96-108); Estimated Glomerular Filt Rate 51; Potassium 4.4 mmol/L (3.3-5.1); Sodium 142 mmol/L (135-145)
== END 2022-08-02 07:54 | disposition home or self-care (01) ==
LOC: HO.LABR 07:53
PROVIDERS: PCP Internal Medicine; Visit Provider Counselor Mental Health
DX: F25.1 Schizoaffective disorder, depressive type (principal); F84.0 Autistic disorder; F41.0 Panic disorder [episodic paroxysmal anxiety]; Z79.899 Other long term (current) drug therapy
CPT/HCPCS: 36415; 80051; 80178; 82310; 82565; 84520; 85025

== ENCOUNTER 2022-08-25 08:21 | Outpatient (REF) | payer OTHER, SELFPAY | END 2022-08-25 08:22 | disposition home or self-care (01) | LOC: HO.LAB 08:21 | PROVIDERS: PCP Internal Medicine; Visit Provider Counselor Mental Health | DX: Z79.899 Other long term (current) drug therapy (principal) | CPT/HCPCS: 36415; 80178 ==

== ENCOUNTER 2022-08-30 16:24 | Outpatient (REF) | payer OTHER, SELFPAY ==
[2022-08-30 17:57] LABS: Creatinine Urine 22.06 mg/dL; Total Protein Urine Random < 7 mg/dL (<12)
[2022-08-30 18:07] LABS: Alanine Aminotransferase 32 U/L (0-40); Albumin Level 4.4 g/dL (3.5-5.0); Alkaline Phosphatase 119 U/L (39-117); Anion Gap 10 (12-20); Aspartate Amino Transferase 13 U/L (5-37); Bilirubin Total 0.3 mg/dL (0.0-1.0); Blood Urea Nitrogen 11 mg/dL (9-16); Calcium 9.6 mg/dL (8.4-10.2); Carbon Dioxide 26 mmol/L (22-29); Chloride 108 mmol/L (96-108); Estimated Glomerular Filt Rate 52; Glucose Random 79 mg/dL (60-115); Potassium 4.2 mmol/L (3.3-5.1); Sodium 140 mmol/L (135-145); Thyroid Stimulating Hormone 0.51 uIU/mL (0.32-4.0); Total Protein 7.4 g/dL (6.5-8.0)
== END 2022-08-30 16:25 | disposition home or self-care (01) ==
LOC: HO.LAB 16:24
PROVIDERS: PCP Internal Medicine; Visit Provider Internal Medicine
DX: E03.8 Other specified hypothyroidism (principal); I12.9 Hypertensive chronic kidney disease with stage 1 through stage 4 chronic kidney disease, or unspecified chronic kidney disease; N18.9 Chronic kidney disease, unspecified
CPT/HCPCS: 36415; 80053; 84156; 84443

== ENCOUNTER 2022-11-16 06:47 | Outpatient (REF) | payer OTHER, SELFPAY ==
[2022-11-16 08:13] LABS: Lithium 0.77 mmol/L (0.60-1.20)
[2022-11-16 08:17] LABS: Anion Gap 15 (12-20); Blood Urea Nitrogen 14 mg/dL (9-16); Calcium 9.7 mg/dL (8.4-10.2); Carbon Dioxide 24 mmol/L (22-29); Chloride 110 mmol/L (96-108); Estimated Glomerular Filt Rate 55; Potassium 4.2 mmol/L (3.3-5.1); Sodium 145 mmol/L (135-145)
== END 2022-11-16 06:48 | disposition home or self-care (01) ==
LOC: HO.LAB 06:47
PROVIDERS: PCP Internal Medicine; Visit Provider Counselor Mental Health
DX: F25.1 Schizoaffective disorder, depressive type (principal)
CPT/HCPCS: 36415; 80051; 80178; 82310; 82565; 84520

== ENCOUNTER 2022-11-30 07:21 | Outpatient (REF) | payer OTHER, SELFPAY ==
[2022-11-30 07:45] LABS: MANUAL DIFF FLAG NO
[2022-11-30 08:10] LABS: Basophils Absolute Auto 0.1 X10*3/uL (0.0-0.2); Basophils Percent Auto 0.6 % (0-2); Eosinophils Absolute Auto 0.4 X10*3/uL (0.0-0.4); Eosinophils Percent Auto 3.5 % (0-4); Hematocrit 41.5 % (42.0-52.0); Hemoglobin 13.3 g/dl (14.0-18.0); Imm Gran Abs Auto 0.04 X10*3/uL (0.00-0.03); Imm Gran Pct Auto 0.4 % (0.0-0.4); Lymphocytes Absolute Auto 2.8 X10*3/uL (1.2-4.9); Lymphocytes Percent Auto 26.6 % (20-40); Mean Corpuscular Hemoglobin 27.8 pg (27.0-33.0); Mean Corpuscular Volume 86.8 fL (80.0-98.0); Mean Platelet Volume 9.5 fL (9.4-12.4); Monocytes Absolute Auto 0.6 X10*3/uL (0.1-1.2); Monocytes Percent Auto 5.7 % (2-11); Neutrophils Absolute Auto 6.7 x10*3/uL (2.0-8.3); Neutrophils Percent Auto 63.2 % (45-73); Platelet Count 340 X10*3/uL (160-400); Red Blood Count 4.78 X10*6/uL (4.60-5.80); Red Cell Distribution Width 13.3 % (11.0-16.0); White Blood Count 10.6 X10*3/uL (4.8-10.8)
[2022-11-30 09:54] LABS: Appearance Urine Clear; Color Urine Yellow; Glucose Urine UA Negative (Negative); Leukocyte Esterase Urine Trace (Negative); Nitrite Urine Negative (Negative); Specific Gravity - Urine <= 1.005 (1.005-1.025); UMIC TRIGGER UA YES; Urine Blood Negative (Negative); Urine Ketones Negative (Negative); Urine Protein Negative (Neg-Trace)
[2022-11-30 09:57] LABS: Bacteria Urine None Seen (None Seen); Hyaline Casts Urine 0-2 /LPF (0-2); RBC Urine 0-2 /HPF (0-2); Squamous Epithelial Cell Urine 0-2 /HPF (0-2); WBC Urine 0-5 /HPF (0-5)
[2022-11-30 11:41] LABS: Alanine Aminotransferase 27 U/L (0-40); Albumin Level 4.5 g/dL (3.5-5.0); Alkaline Phosphatase 108 U/L (39-117); Anion Gap 14 (12-20); Aspartate Amino Transferase 11 U/L (5-37); Bilirubin Direct < 0.2 mg/dL (0.0-0.5); Bilirubin Total 0.5 mg/dL (0.0-1.0); Blood Urea Nitrogen 14 mg/dL (9-16); Calcium 9.8 mg/dL (8.4-10.2); Carbon Dioxide 25 mmol/L (22-29); Chloride 110 mmol/L (96-108); Estimated Glomerular Filt Rate 48; Phosphorus 4.4 mg/dL (2.7-4.5); Potassium 4.6 mmol/L (3.3-5.1); Sodium 144 mmol/L (135-145); Total Protein 7.6 g/dL (6.5-8.0)
[2022-11-30 12:48] LABS: Uric Acid 9.1 mg/dL (3.4-7.0)
[2022-11-30 14:17] LABS: Creatinine Urine 31.91 mg/dL; Total Protein Urine Random < 7 mg/dL (<12)
[2022-12-01 05:25] LABS: ~HepC Num1 0.14 S/CO (0.00-0.79); ~Hepatitis C Antibody Nonreactive (Nonreactive)
[2022-12-01 14:24] LABS: Calcium (PTHI) 10.6 mg/dL (8.6-10.3); PTHI 110 pg/mL (16-77)
[2022-12-02 13:29] LABS: Anti Glomerular Basement Memb <1.0 AI
[2022-12-02 14:52] LABS: Complement C3 182 mg/dL (82-185)
[2022-12-02 23:39] LABS: Prot Elec - Albumin 4.6 g/dL (3.8-4.8); Prot Elec - Alpha1 0.3 g/dL (0.2-0.3); Prot Elec - Alpha2 0.7 g/dL (0.5-0.9); Prot Elec - Beta 1 0.5 g/dL (0.4-0.6); Prot Elec - Beta 2 0.4 g/dL (0.2-0.5); Prot Elec - Gamma 1.6 g/dL (0.8-1.7); Prot Elec - Total Protein 8.1 g/dL (6.1-8.1)
[2022-12-05 09:04] LABS: Anti Nuclear Antibody Screen NEGATIVE (NEGATIVE)
[2022-12-07 14:38] LABS: Neutrophil Cyto Ab Screen NEGATIVE (NEGATIVE)
[2022-12-08 17:24] LABS: Phospholipase A2 IgG ELISA <4 RU/mL; Phospholipase A2 IgG IFA NEGATIVE (NEGATIVE)
== END 2022-11-30 07:22 | disposition home or self-care (01) ==
LOC: HO.LAB 07:21
PROVIDERS: PCP Internal Medicine; Visit Provider Internal Medicine Nephrology
DX: N18.31 Chronic kidney disease, stage 3a (principal)
CPT/HCPCS: 36415; 80051; 80076; 81001; 82306; 82310; 82550; 82565; 83520; 83970; 84100; 84156; 84165; 84520; 84550; 85025; 86036; 86037; 86038; 86039; 86160; 86255; 86803

== ENCOUNTER 2022-12-07 13:54 | Outpatient (REF) | payer OTHER, SELFPAY ==
--- NOTE | ~2022-12-07 | US_ITS ---
EXAMINATION: US RETROPERITONEAL LIMITED (RENAL ONLY) CLINICAL INFORMATION: Chronic kidney disease, stage 3a. COMPARISON: X-ray abdomen complete 10/01/2021. TECHNIQUE: Real-time imaging of the kidneys. FINDINGS: RIGHT KIDNEY: 10.7 x 5.6 x 5.9 cm (SAG x AP x TRV). The kidney is normal in size, contour, and echogenicity. Renal cortical thickness is normal. No calculi or focal parenchymal lesions. No hydronephrosis. There is a hypertrophic column of Eron. LEFT KIDNEY: 10.8 x 5.6 x 5.1 cm (SAG x AP x TRV). The kidney is normal in size, contour, and echogenicity. Renal cortical thickness is normal. No calculi or focal parenchymal lesions. No hydronephrosis. A junctional parenchymal defect is incidentally noted. US/US renal BI IMPRESSION: Unremarkable bilateral renal ultrasound examination.
== END 2022-12-07 13:55 | disposition home or self-care (01) ==
LOC: HO.US 13:54
PROVIDERS: PCP Internal Medicine; Visit Provider Internal Medicine Nephrology
DX: N18.31 Chronic kidney disease, stage 3a (principal)
CPT/HCPCS: 76775

== ENCOUNTER 2022-12-14 07:39 | Outpatient (REF) | payer OTHER, SELFPAY ==
[2022-12-16 14:03] LABS: Myeloperoxidase Antibody <1.0 AI
== END 2022-12-14 07:40 | disposition home or self-care (01) ==
LOC: HO.LAB 07:39
PROVIDERS: Visit Provider Internal Medicine Nephrology
DX: N18.31 Chronic kidney disease, stage 3a (principal)
CPT/HCPCS: 36415; 86021

== ENCOUNTER 2022-12-28 07:02 | Outpatient (REF) | payer OTHER, SELFPAY ==
[2022-12-28 08:47] LABS: Alanine Aminotransferase 31 U/L (0-40); Albumin Level 4.5 g/dL (3.5-5.0); Alkaline Phosphatase 124 U/L (39-117); Anion Gap 13 (12-20); Aspartate Amino Transferase 11 U/L (5-37); Bilirubin Total 0.3 mg/dL (0.0-1.0); Blood Urea Nitrogen 11 mg/dL (9-16); Calcium 10.2 mg/dL (8.4-10.2); Carbon Dioxide 26 mmol/L (22-29); Chloride 111 mmol/L (96-108); Estimated Glomerular Filt Rate 47; Glucose Random 102 mg/dL (60-115); Potassium 4.8 mmol/L (3.3-5.1); Sodium 145 mmol/L (135-145); Total Protein 7.8 g/dL (6.5-8.0)
[2022-12-28 09:04] LABS: Thyroid Stimulating Hormone 0.26 uIU/mL (0.32-4.0)
== END 2022-12-28 07:03 | disposition home or self-care (01) ==
LOC: HO.LAB 07:02
PROVIDERS: PCP Internal Medicine; Visit Provider Internal Medicine
DX: E03.8 Other specified hypothyroidism (principal); I12.9 Hypertensive chronic kidney disease with stage 1 through stage 4 chronic kidney disease, or unspecified chronic kidney disease; N18.9 Chronic kidney disease, unspecified
CPT/HCPCS: 36415; 80053; 84443

== ENCOUNTER 2023-02-05 07:16 | Emergency (ER) | payer OTHER, SELFPAY ==
[2023-02-05 08:27] VITALS: BP 112/74; PULSE 75; RESP 16; TEMP 36.6; O2SAT 98; BMI 38.0
--- NOTE | 2023-02-05 09:02 | ED_ITS ---
HPI - General Adult General Chief complaint: Skin/Abscess/Foreign Body Stated complaint: bleeding from belly button Time Seen by Provider: 02/05/23 08:57 Source: patient and RN notes reviewed Mode of arrival: ambulatory Limitations: no limitations History of Present Illness HPI narrative: This is a 22-year-old male, with a past medical history of austism and schizophrenia, who presents the emergency department today for evaluation of bleeding belly button for the last week. Patient denies picking at his belly button or remembering any trauma or injury to his belly button. Patient report that has been cleaning his bellybutton however has noticed that at times it will bleed again. His mother has been applying antibiotic ointment but has since run out and is requesting more. Patient reports that he is feeling well, denies any fevers, chills, increased redness, pain to the area. He denies history of similar symptoms in the past. No other complaints or concerns at this time. MD complaint: Umbilical bleeding Onset (ago): week(s) Radiation: non-radiation Relieving factors: none Exacerbating factors: none Associated symptoms: denies other symptoms Treatments prior to arrival: none Related Data Home Medications Medication Instructions Recorded Confirmed ergocalciferol (vitamin D2) 1,250 1,250 mcg PO QWEEK 02/10/21 12/07/21 mcg (50,000 unit) capsule (Vitamin D2) multivitamin 1 tab PO DAILY 02/10/21 12/07/21 olanzapine 10 mg tablet 10 mg PO BEDTIME 02/10/21 12/07/21 olanzapine 20 mg tablet 20 mg PO BEDTIME 02/10/21 12/07/21 hydroxyzine pamoate 50 mg capsule 50 mg PO BID 12/07/21 12/07/21 (Vistaril) lithium carbonate 150 mg capsule 150 mg PO QAM 12/07/21 12/07/21 lithium carbonate 300 mg capsule 600 mg PO QAM 12/07/21 12/07/21 lithium carbonate 600 mg capsule 600 mg PO BEDTIME 12/07/21 12/07/21 risperidone 1 mg tablet See Rx Instructions PO DAILY 12/07/21 12/07/21 Previous Rx's Medication Instructions Recorded levothyroxine 125 mcg tablet 125 mcg PO DAILY 30 days #30 tabs 12/07/21 bacitracin zinc 500 unit/gram 1 appl topical DAILY #14 grams 02/05/23 topical ointment Allergies Allergy/AdvReac Type Severity Reaction Status Date / Time Penicillins [PENICILLINS] Allergy Intermediate RASH Unverified 12/07/21 12:56 ibuprofen [From MOTRIN] Allergy Unknown RASH Unverified 12/07/21 12:56 aspartame [ASPARTAME] AdvReac Intermediate VOMITING Unverified 12/07/21 12:56 quetiapine [From SEROQUEL] AdvReac Unknown AGITATION Unverified 12/07/21 12:56 Motrin Allergy Unknown turns red Uncoded 12/07/21 12:56 Penicillin Allergy Unknown rash Uncoded 12/07/21 12:56 Review of Systems Review of Systems: Constitutional: No Weight loss, No Fever, No Chills, No Night Sweats, No Fatigue, No Malaise ENT/Mouth: No Hearing loss, No Ear Pain, No Nasal Congestion, No Sinus Pain, No Hoarseness, No sore throat, No Rhinorrhea, No Swallowing Difficulty Eyes: No Eye Pain, No Swelling, No Redness, No Foreign Body, No Discharge, No Vision Changes Cardiovascular: No Chest Pain, No SOB, No Dyspnea on Exertion, No Orthopnea, No Edema, No Palpitations Respiratory: No Cough, No Sputum, No Wheezing, No Smoke Exposure, No Dyspnea Gastrointestinal: No Nausea, No Vomiting, No Diarrhea, No Constipation, No Abdominal pain, No Hematochezia, No Melena Genitourinary: No irregular bleeding, No Dysuria, No Urinary Frequency, No Hematuria, No Urinary Incontinence/retention, No Urgency, No Flank Pain, No Urinary Flow Changes, No Hesitancy Musculoskeletal: No joint pain, No Myalgias, No Joint Swelling Skin: No Skin Lesions, No rash Neuro: No Weakness, No Numbness, No Paresthesias, No Loss of Consciousness, No Dizziness, No Headache Psych: No Anxiety/Panic, No Depression, No SI/HI/AH/VH, No Social Issues, Heme/Lymph: No Bruising, No Bleeding,No Lymphadenopathy Endocrine: No Polyuria, No Polydipsia, No Temperature Intolerance Yes all other systems are reviewed and are negative Constitutional: Constitutional: Reports as per [facility] Past Medical History Medical History (Updated 02/05/23 @ 09:12 by ADRIANNA Hewitt) Asthma Autistic disorder Depression Hyperprolactinemia Hypothyroidism Schizophrenia Surgical History (Updated 02/10/21 @ 08:01 by JALYN Ramos) No pertinent past surgical history Family History Family History (Updated 02/10/21 @ 08:02 by JALYN Ramos) Father Knee tumor Mother Healthy adult Social History Social History (Updated 02/10/21 @ 08:03 by JALYN Ramos) Household Members: Family Alcohol intake: never Patient Tobacco Use Status: Never used Tobacco Advance Directives: No Advance Directives Information Provided: No Physical Exam ED Vital Signs: Vital Signs - 24 hr 02/05/23 08:27 Temperature 98 F Pulse Rate 75 Respiratory Rate 16 Blood Pressure 112/74 Pulse Oximetry 98 Oxygen Delivery Method Room Air BMI result Body Mass Index 38.0 Const General: cooperative, comfortable and no acute distress Orientation/consciousness: patient oriented x3 Limitations: no limitations HENMT Head: Yes normal to inspection, Yes normocephalic and Yes atraumatic Ears: hearing grossly normal bilaterally General nose exam: Normal external nose present Face and sinus: Yes normal facial exam Mouth: Normal oral and palatal mucosa present, oropharynx normal and moist mucous membranes Throat: Yes posterior oropharynx normal Eyes General: appearance normal, both eyes and all related structures Eyelids: Yes eyelids normal Conjunctivae: conjunctivae normal Sclerae: sclerae normal Pupils: Equal, round and reactive pupils present EOM: EOMs intact bilaterally Neck Neck: Yes normal visual inspection, Yes full ROM and Yes no lymphadenopathy Lymphatic: no lymphadenopathy noted Chest Chest palpation & inspection: normal inspection of the chest Resp Effort & Inspection: normal respiratory effort and able to speak in complete sentences Cardio Rate: regular rate Rhythm: regular rhythm GI Inspection: Yes normal to inspection Skin Other: Umbilicus with scant flecks of blood surrounding the umbilicus, no active bleeding or drainage. No excoriations. No surrounding erythema, edema, or fluctuance General skin exam: no rashes or lesions noted Neuro General: patient oriented x3 and moves all extremities Cranial nerves: Yes Equal, round and reactive pupils present Extrem General: Yes normal to inspection Right upper extremity: normal to inspection Left upper extremity: normal to inspection Right lower extremity: normal to inspection Left lower extremity: normal to inspection Medical Decision Making Medical Decision Making MDM Narrative: 22-year-old male, with a past medical history of autism and schizophrenia, who presents to the emergency department today for evaluation of umbilical bleeding for the last week. Denies any injury or trauma to his bellybutton however has noticed that it bleeds and then dries. Mother has been applying antibiotic ointment to the area but has run out. Physical exam revealing minimal flecks of dried blood around the belly button. Umbilicus was cleansed with saline and Betadine, no visualized laceration. There is no active bleeding. No signs of infection. Patient has been afebrile, vitals are stable. I discussed with patient importance of keeping umbilicus clean and dry, and watching for any signs of infection. Will discharge on bacitracin. Patient understands and agrees with plan. Patient stable for discharge Differential Diagnosis Differential Diagnoses: The differential diagnosis associated with the presentation includes Abrasion, cellulitis, hematoma, abscess Admission/Observation Consideration of admission/observation: Escalation of care including admission/observation considered Discharge Plan Discharge Clinical Impression: Abrasion Patient Disposition: Home, Self-Care Additional Instructions: You likely scraped the inside of your belly button which is causing it to frequently bleed. Use prescribed bacitracin over the next 7 days once a day. You may wash your belly button once a day with warm soapy water. Do not pick or place anything and the bellybutton as this may cause it to bleed again. Watch for any signs of infection including any fevers, chills, increased redness around the belly button or pain. Follow-up with your primary care physician. If any new or worsening symptoms occur please return for re-evaluation. Prescriptions: New bacitracin zinc 500 unit/gram ointment 1 appl topical DAILY Qty: 14 0RF No Action olanzapine 20 mg tablet 20 mg PO BEDTIME olanzapine 10 mg tablet 10 mg PO BEDTIME ergocalciferol (vitamin D2) [Vitamin D2] 1,250 mcg (50,000 unit) capsule 1,250 mcg PO QWEEK multivitamin Tablet 1 tab PO DAILY lithium carbonate 300 mg capsule 600 mg PO QAM risperidone 1 mg tablet See Rx Instructions PO DAILY Rx Instructions: 1/2 tab am, 1/2 tab pm PO daily; hydroxyzine pamoate [Vistaril] 50 mg capsule 50 mg PO BID lithium carbonate 600 mg capsule 600 mg PO BEDTIME lithium carbonate 150 mg capsule 150 mg PO QAM levothyroxine 125 mcg tablet 125 mcg PO DAILY 30 Days Qty: 30 3RF Discharge Date/Time: 02/05/23 09:28
--- NOTE | 2023-02-05 09:28 | PC.NURSE ---
SEEN AND DISCHARGED BY PROVIDER
== END 2023-02-05 09:28 | disposition home or self-care (01) ==
PROVIDERS: Emergency Provider Internal Medicine; PCP Internal Medicine
DX: S30.811A Abrasion of abdominal wall, initial encounter (principal); X58.XXXA Exposure to other specified factors, initial encounter; Y93.E8 Activity, other personal hygiene; Y92.019 Unspecified place in single-family (private) house as the place of occurrence of the external cause; Y99.9 Unspecified external cause status; Z79.899 Other long term (current) drug therapy
CPT/HCPCS: 99281; 99282

== ENCOUNTER 2023-03-03 09:09 | Outpatient (REF) | payer OTHER, SELFPAY ==
[2023-03-03 11:38] LABS: Alanine Aminotransferase 36 U/L (0-40); Albumin Level 4.1 g/dL (3.5-5.0); Alkaline Phosphatase 94 U/L (39-117); Anion Gap 12 (12-20); Aspartate Amino Transferase 13 U/L (5-37); Bilirubin Total 0.4 mg/dL (0.0-1.0); Blood Urea Nitrogen 16 mg/dL (9-16); Calcium 10.3 mg/dL (8.4-10.2); Carbon Dioxide 27 mmol/L (22-29); Chloride 111 mmol/L (96-108); Estimated Glomerular Filt Rate 58; Glucose Random 92 mg/dL (60-115); Potassium 3.8 mmol/L (3.3-5.1); Sodium 146 mmol/L (135-145); Total Protein 7.8 g/dL (6.5-8.0)
[2023-03-03 11:44] LABS: Free T4 (Free Thyroxine) 1.14 ng/dL (0.71-1.85); Thyroid Stimulating Hormone 0.56 uIU/mL (0.32-4.0)
[2023-03-05 04:19] LABS: Triiodothyronine T3 Free 3.2 pg/mL (2.3-4.2)
== END 2023-03-03 09:10 | disposition home or self-care (01) ==
LOC: HO.LAB 09:09
PROVIDERS: PCP Internal Medicine; Visit Provider Internal Medicine
DX: E03.8 Other specified hypothyroidism (principal); I47.1 Supraventricular tachycardia; I12.9 Hypertensive chronic kidney disease with stage 1 through stage 4 chronic kidney disease, or unspecified chronic kidney disease; N18.9 Chronic kidney disease, unspecified
CPT/HCPCS: 36415; 80053; 84439; 84443; 84481

== ENCOUNTER 2023-03-12 12:06 | Emergency (ER) | payer OTHER, SELFPAY ==
--- NOTE | 2023-03-12 12:08 | ED.GENADULT ---
HPI - General Adult General Chief complaint: General Medical Stated complaint: stomach pain Time Seen by Provider: 03/12/23 12:19 Source: patient and family (Mother) Mode of arrival: ambulatory History of Present Illness HPI narrative: Patient is a 22-year-old male with history of asthma, autism spectrum disorder, hyperprolactinemia, hypothyroidism, schizophrenia presenting to the emergency department with his mother who is concerned that patient's umbilicus has been bleeding. Patient was seen here on 02/05 for same complaint. Has also seen PCP for same complaint. Mother states initially they were told to use bacitracin, then PCP told her to use alcohol swabs. Area has continue to bleed intermittently. Mother denies purulent drainage from the area. Patient and mother deny any foreign body insertion or other trauma. Patient and mother deny fevers patient denies any pain. MD complaint: Bleeding umbilicus Onset (ago): month(s) Location: abdomen Radiation: non-radiation Associated symptoms: denies other symptoms Treatments prior to arrival: other (Bacitracin, alcohol) Related Data Home Medications Medication Instructions Recorded Confirmed ergocalciferol (vitamin D2) 1,250 1,250 mcg PO QWEEK 02/10/21 12/07/21 mcg (50,000 unit) capsule (Vitamin D2) multivitamin 1 tab PO DAILY 02/10/21 12/07/21 olanzapine 10 mg tablet 10 mg PO BEDTIME 02/10/21 12/07/21 olanzapine 20 mg tablet 20 mg PO BEDTIME 02/10/21 12/07/21 hydroxyzine pamoate 50 mg capsule 50 mg PO BID 12/07/21 12/07/21 (Vistaril) lithium carbonate 150 mg capsule 150 mg PO QAM 12/07/21 12/07/21 lithium carbonate 300 mg capsule 600 mg PO QAM 12/07/21 12/07/21 lithium carbonate 600 mg capsule 600 mg PO BEDTIME 12/07/21 12/07/21 risperidone 1 mg tablet See Rx Instructions PO DAILY 12/07/21 12/07/21 Previous Rx's Medication Instructions Recorded levothyroxine 125 mcg tablet 125 mcg PO DAILY 30 days #30 tabs 12/07/21 bacitracin zinc 500 unit/gram 1 appl topical DAILY #14 grams 02/05/23 topical ointment Allergies Allergy/AdvReac Type Severity Reaction Status Date / Time Penicillins [PENICILLINS] Allergy Intermediate RASH Verified 03/12/23 12:08 ibuprofen [From MOTRIN] Allergy Unknown RASH Verified 03/12/23 12:08 aspartame [ASPARTAME] AdvReac Intermediate VOMITING Verified 03/12/23 12:08 quetiapine [From SEROQUEL] AdvReac Unknown AGITATION Verified 03/12/23 12:08 Motrin Allergy Unknown turns red Uncoded 03/12/23 12:08 Penicillin Allergy Unknown rash Uncoded 03/12/23 12:08 Review of Systems Review of Systems: As per HPI. Yes all other systems are reviewed and are negative Constitutional: Constitutional: Reports as per HPI [facility] Past Medical History Medical History (Updated 03/12/23 @ 12:48 by Allison Sanford NP) Asthma Autistic disorder Depression Hyperprolactinemia Hypothyroidism Schizophrenia Surgical History (Updated 02/10/21 @ 08:01 by JALYN Ramos) No pertinent past surgical history Family History Family History (Updated 02/10/21 @ 08:02 by JALYN Ramos) Father Knee tumor Mother Healthy adult Social History Social History (Updated 02/10/21 @ 08:03 by JALYN Ramos) Household Members: Family Alcohol intake: never Patient Tobacco Use Status: Never used Tobacco Advance Directives: No Physical Exam ED Vital Signs: Vital Signs - 24 hr 03/12/23 12:09 Temperature 98 F Pulse Rate 95 Respiratory Rate 19 Blood Pressure 122/82 Pulse Oximetry 98 Oxygen Delivery Method Room Air BMI result Body Mass Index 44.8 Vital signs have been reviewed and appear to be correct. Blood pressure normal. Heart rate normal. Respiratory rate normal. Temperature normal. Oxygen saturation normal. Const General: cooperative and no acute distress Orientation/consciousness: oriented to person, oriented to place, oriented to time and patient oriented x3 Limitations: no limitations HENMT Head: Yes normocephalic and Yes atraumatic Ears: external ears normal General nose exam: Normal external nose present Face and sinus: Yes face symmetric Mouth: oropharynx normal and moist mucous membranes Throat: Yes uvula midline Eyes Pupils: Equal, round and reactive pupils present Neck Neck: Yes normal visual inspection and Yes supple Resp Effort & Inspection: normal respiratory effort and able to speak in complete sentences Auscultation: clear to auscultation bilaterally Cardio Rate: regular rate Rhythm: regular rhythm Heart sounds: S1 normal heart sound present and S2 normal heart sound present GI Inspection: Yes normal to inspection, No Abdominal wall edema and Yes obesity Palpation (GI): Soft to palpation and nontender Auscultation: normoactive bowel sounds General: Yes no CVA tenderness Back/Spine/Pelvis Back: no CVA tenderness Skin Other: Scant amount of dried blood noted to umbilicus. No erythema, edema, excoriation, fluctuance, purulent discharge or drainage noted. No surrounding erythema. General skin exam: elasticity normal and turgor normal Neuro General: oriented to person, oriented to place, oriented to time, patient oriented x3, moves all extremities, no focal motor deficits and CN's II-XI intact bilaterally Cranial nerves: Yes Equal, round and reactive pupils present Extrem General: Yes full ROM, Yes no pedal edema and Yes no calf tenderness Psych Mental Status: mental status grossly normal Affect: normal affect Thought process: Normal thought process present Course Course Course Narrative: RME performed by Catalina Toro PA-C. Patient is a 22 year old assigned male at presenting to the emergency department with a belly button injury. Patient placed back in the waiting room pending room availability. Medical Decision Making Medical Decision Making MDM Narrative: Patient is a 22-year-old male with history of asthma, autism spectrum disorder, hyperprolactinemia, hypothyroidism, schizophrenia presenting to the emergency department with his mother who is concerned that patient's umbilicus has been bleeding. On exam patient is awake, A+Ox3, VS WNL, afebrile, abdomen is soft and nontender, scant amount of dried blood around umbilicus without surrounding erythema, calor, fluctuance, excoriation, or purulence drainage. Given reported symptoms and physical exam findings, differential includes abrasion, cellulitis, abscess, Odalys infection. Given that no active bleeding noted in the emergency department and no obvious injury or signs of infection present, instructed patient and mother to discontinue use of alcohol as this can be drying, which could be causing cracks in the skin leading to bleeding. Instructed patient and mother instead to apply bacitracin or Vaseline and cover umbilicus with a Band-Aid to prevent patient from touching the area. Instructed patient and mother to avoid introducing any foreign bodies including fingers into the umbilicus. Return precautions discussed at bedside. Instructed patient and mother to follow-up with PCP. Patient and mother verbalized understanding and agreement with plan. Differential Diagnosis Differential Diagnoses: The differential diagnosis associated with the presentation includes As above Independent Historian Clinical information obtained from an independent historian. History obtained from or confirmed by: Parent (Mother) External Record Review External record reviewed: Inpatient record, Office record and Outpatient record Discharge Plan Discharge Clinical Impression: Umbilical bleeding Patient Disposition: Home, Self-Care Additional Instructions: You were evaluated in the emergency department today for bleeding from your umbilicus (belly button ). Your evaluation did not show any signs of infection. Please discontinue cleaning the area with alcohol. Apply bacitracin or Vaseline as needed and cover the area with a Band-Aid. Do not introduce your finger or any other foreign bodies into your umbilicus. Return to the emergency department if you develop worsening redness, swelling, warmth, thick yellow drainage, fever 100.4? F or greater, or any other concerning symptoms. Please follow-up with your primary care provider. Prescriptions: No Action bacitracin zinc 500 unit/gram ointment 1 appl topical DAILY Qty: 14 0RF olanzapine 20 mg tablet 20 mg PO BEDTIME olanzapine 10 mg tablet 10 mg PO BEDTIME ergocalciferol (vitamin D2) [Vitamin D2] 1,250 mcg (50,000 unit) capsule 1,250 mcg PO QWEEK multivitamin Tablet 1 tab PO DAILY lithium carbonate 300 mg capsule 600 mg PO QAM risperidone 1 mg tablet See Rx Instructions PO DAILY Rx Instructions: 1/2 tab am, 1/2 tab pm PO daily; hydroxyzine pamoate [Vistaril] 50 mg capsule 50 mg PO BID lithium carbonate 600 mg capsule 600 mg PO BEDTIME lithium carbonate 150 mg capsule 150 mg PO QAM levothyroxine 125 mcg tablet 125 mcg PO DAILY 30 Days Qty: 30 3RF
[2023-03-12 12:09] VITALS: BP 122/82; PULSE 95; RESP 19; TEMP 36.6; O2SAT 98; BMI 44.8
== END 2023-03-12 12:52 | disposition home or self-care (01) ==
PROVIDERS: Emergency Provider Emergency Medicine Emergency Medical Services; PCP Internal Medicine
DX: R19.8 Other specified symptoms and signs involving the digestive system and abdomen (principal); F84.0 Autistic disorder; F20.9 Schizophrenia, unspecified
CPT/HCPCS: 99282; 99283

== ENCOUNTER 2023-03-15 21:32 | Inpatient (IN) | payer OTHER, SELFPAY ==
[2023-03-15 21:45] VITALS: BP 119/80; BP 137/79; PULSE 107; PULSE 97; RESP 18; TEMP 37.1; O2SAT 95; O2SAT 97; BMI 41.4
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
--- NOTE | 2023-03-15 22:08 | PC.NURSE ---
pt awake, calm and cooperative at this time
[2023-03-15 22:37] LABS: Alanine Aminotransferase 37 U/L (0-40); Albumin Level 3.9 g/dL (3.5-5.0); Alkaline Phosphatase 86 U/L (39-117); Anion Gap 17 (12-20); Aspartate Amino Transferase 14 U/L (5-37); Bilirubin Direct < 0.1 mg/dL (0.0-0.5); Bilirubin Total 0.3 mg/dL (0.0-1.0); Blood Urea Nitrogen 16 mg/dL (9-16); Calcium 9.1 mg/dL (8.4-10.2); Carbon Dioxide 21 mmol/L (22-29); Chloride 105 mmol/L (96-108); Creatinine Clr Calc Pharmacy 93.7; Estimated Glomerular Filt Rate 51; Ethanol < 10 mg/dL; Glucose Random 129 mg/dL (60-115); Potassium 3.6 mmol/L (3.3-5.1); Sodium 139 mmol/L (135-145); Total Protein 7.4 g/dL (6.5-8.0)
--- NOTE | 2023-03-16 00:04 | PC.NURSE ---
Care team in with pt
--- NOTE | 2023-03-16 05:43 | PC.NURSE ---
Patient slept through the night, no distress observed/reported, behavior non concerning, disposition per care team is section 12 inpatient bed search, VSS, labs completed/resulted, medication compliant, appetite good, will continue to monitor
--- NOTE | 2023-03-16 07:48 | PC.NURSE ---
Pt up this am. Called Mother. No complaints, no dangerous behaviors noted.
--- NOTE | 2023-03-16 08:12 | PC.NURSE ---
Pt reports feeling better than yesterday. Claims he has PTSD, feels scared and sad. Reassurance given. Pt ate breakfast, pacing when awake.
--- NOTE | 2023-03-16 11:22 | PC.NURSE ---
Pt mother in to visit. Pt is calm and cooperative.
[2023-03-16 14:52] VITALS: BP 121/78; PULSE 88; RESP 16; TEMP 37.2; O2SAT 98
[2023-03-16 17:32] VITALS: BP 123/66; PULSE 85; RESP 18; TEMP 36.5; O2SAT 99
[2023-03-16 17:34] VITALS: BMI 40.0
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
--- NOTE | 2023-03-16 18:30 | PC.NURSE ---
Phani flores RN asked for a 3 day. Education on 3 day provided, Phani verbalized understanding, 3 day signed today 03/16/23, message left to Ingrid Dash.
[2023-03-17 07:00] VITALS: BMI 40.7
[2023-03-17 08:16] LABS: Estimated Average Glucose 94 mg/dL; Hemoglobin A1c % 4.9 %
[2023-03-17 09:00] VITALS: BP 128/74; PULSE 97; RESP 18; TEMP 36.5; O2SAT 98
[2023-03-17 09:03] LABS: Cholesterol 182 mg/dL; HDL Cholesterol 28 mg/dL; LDL Cholesterol Calculated 126 mg/dl; Magnesium 2.2 mg/dL (1.6-2.6); Triglycerides 140 mg/dL
[2023-03-17 09:23] LABS: Vitamin B12 288 pg/mL (200-900)
[2023-03-17 10:24] LABS: Free T4 (Free Thyroxine) 1.04 ng/dL (0.71-1.85); Thyroid Stimulating Hormone 0.36 uIU/mL (0.32-4.0)
--- NOTE | 2023-03-17 15:36 | HO.PSYADMNOT ---
HPI Date of Service: 03/17/23 Chief Complaint: schizophrenia; autism spectrum d/o Sources of Information: patient interviewed, chart reviewed and crisis/core team assessment reviewed HPI Subjective Notes: Jaramillo Warning and Conditional Voluntary Narrative: Patient is a 22-year-old male with history of autism, schizophrenia, CKD stage 3 who presents for dysregulated behavior. Currently Patient is calm, articulate and friendly on approach. He feels badly about recent event; does not know what the trigger was but punch the lozada, punched himself and reported increased AVH. 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 Because he was having nightmares and auditory hallucinations at bedtime, his medications were changed about a month and a half ago when he was tapered off scheduled Risperdal and started on Caplyta at bedtime (Risperdal remained as p.r.n.). Ever since then his mother, also present, and patient says he has been more grumpy in the afternoon. Patient said that he thinks the medication wears off and that in the afternoon and early evening his thoughts get worse, auditory hallucinations harder to ignore and he can feel agitated and sometimes panic. It is unclear if there are any other contributed factors. Patient denies depression or increased stress, though his mother feels that there has been some increased stressful experiences. Patient denies any history of manic episodes; denies any drugs or alcohol. 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 [employer] Substance History: None Trauma History: Deferred Diagnostics Vital Signs (24Hr): Vital Signs - 24 hr 03/16/23 17:32 03/17/23 09:00 Temperature 97.7 F 97.7 F Pulse Rate 85 97 Respiratory Rate 18 18 Blood Pressure 123/66 128/74 Pulse Oximetry 99 98 Oxygen Delivery Method Room Air Room Air BMI result Body Mass Index 40.7 Labs 03/15/23 21:56 03/15/23 21:56 Labs: Laboratory Results - last 48 hr 03/15/23 03/15/23 03/15/23 21:56 21:56 22:10 WBC 8.7 RBC 4.80 Hgb 13.0 L Hct 39.7 L MCV 82.7 MCH 27.1 MCHC 32.7 RDW 12.9 Plt Count 288 MPV 9.5 Immature Gran % (Auto) 0.5 H Neut % (Auto) 64.0 Lymph % (Auto) 27.5 [place] % (Auto) 5.4 Eos % (Auto) 2.3 Baso % (Auto) 0.3 Lymph # (Auto) 2.4 [place] # (Auto) 0.5 Eos # (Auto) 0.2 Baso # (Auto) 0.0 Abs Immat Gran (auto) 0.04 H Absolute Neuts (auto) 5.6 Absolute Nucleated RBC 0.000 Nucleated RBC % (auto) 0.0 Sodium 139 Potassium 3.6 Chloride 105 Carbon Dioxide 21 L Anion Gap 17 BUN 16 Creatinine 1.68 H Estim Creat Clear Calc 93.7 Estimated GFR 51 Random Glucose 129 H Estimat Average Glucose Hemoglobin A1c % Calcium 9.1 D Magnesium Total Bilirubin 0.3 Direct Bilirubin < 0.1 AST 14 ALT 37 Alkaline Phosphatase 86 Total Protein 7.4 Albumin 3.9 Triglycerides Cholesterol LDL Cholesterol, Calc HDL Cholesterol Vitamin B12 Folate TSH Free T4 Urine Color Yellow Urine Appearance Clear Urine pH 6.0 Ur Specific [place] <= 1.005 Urine Protein Negative Urine Glucose (UA) Negative Urine Ketones Negative Urine Blood Negative Urine Nitrite Negative Ur Leukocyte Esterase Negative Urine Opiates Screen Urine Fentanyl Screen Ur Barbiturates Screen Ur Phencyclidine Scrn Ur Amphetamines Screen U Benzodiazepines Scrn Urine Cocaine Screen U Marijuana (THC) Screen Ethyl Alcohol < 10 COVID-19 ([facility]ISE) COVID-19 Clin Com 03/15/23 03/16/23 03/17/23 22:10 01:05 07:29 WBC RBC Hgb Hct MCV MCH MCHC RDW Plt Count MPV Immature Gran % (Auto) Neut % (Auto) Lymph % (Auto) [place] % (Auto) Eos % (Auto) Baso % (Auto) Lymph # (Auto) [place] # (Auto) Eos # (Auto) Baso # (Auto) Abs Immat Gran (auto) Absolute Neuts (auto) Absolute Nucleated RBC Nucleated RBC % (auto) Sodium Potassium Chloride Carbon Dioxide Anion Gap BUN Creatinine Estim Creat Clear Calc Estimated GFR Random Glucose Estimat Average Glucose 94 Hemoglobin A1c % 4.9 Calcium Magnesium Total Bilirubin Direct Bilirubin AST ALT Alkaline Phosphatase Total Protein Albumin Triglycerides Cholesterol LDL Cholesterol, Calc HDL Cholesterol Vitamin B12 Folate TSH Free T4 Urine Color Urine Appearance Urine pH Ur Specific [place] Urine Protein Urine Glucose (UA) Urine Ketones Urine Blood Urine Nitrite Ur Leukocyte Esterase Urine Opiates Screen Not Detected Urine Fentanyl Screen Not Detected Ur Barbiturates Screen Not Detected Ur Phencyclidine Scrn Not Detected Ur Amphetamines Screen Not Detected U Benzodiazepines Scrn Not Detected Urine Cocaine Screen Not Detected U Marijuana (THC) Screen Not Detected Ethyl Alcohol COVID-19 (DENISE) Negative COVID-Slacker See Note 03/17/23 03/17/23 07:29 07:29 WBC RBC Hgb Hct MCV MCH MCHC RDW Plt Count MPV Immature Gran % (Auto) Neut % (Auto) Lymph % (Auto) [place] % (Auto) Eos % (Auto) Baso % (Auto) Lymph # (Auto) [place] # (Auto) Eos # (Auto) Baso # (Auto) Abs Immat Gran (auto) Absolute Neuts (auto) Absolute Nucleated RBC Nucleated RBC % (auto) Sodium Potassium Chloride Carbon Dioxide Anion Gap BUN Creatinine Estim Creat Clear Calc Estimated GFR Random Glucose Estimat Average Glucose Hemoglobin A1c % Calcium Magnesium 2.2 Total Bilirubin Direct Bilirubin AST ALT Alkaline Phosphatase Total Protein Albumin Triglycerides 140 Cholesterol 182 LDL Cholesterol, Calc 126 HDL Cholesterol 28 Vitamin B12 288 Folate 6.0 TSH 0.36 Free T4 1.04 Urine Color Urine Appearance Urine pH Ur Specific [place] Urine Protein Urine Glucose (UA) Urine Ketones Urine Blood Urine Nitrite Ur Leukocyte Esterase Urine Opiates Screen Urine Fentanyl Screen Ur Barbiturates Screen Ur Phencyclidine Scrn Ur Amphetamines Screen U Benzodiazepines Scrn Urine Cocaine Screen U Marijuana (THC) Screen Ethyl Alcohol COVID-19 (DENISE) COVID-19 [employer] Meds/Allergies Meds Home Medications Medication Instructions Recorded Confirmed Type ergocalciferol (vitamin D2) 1,250 1,250 mcg PO QWEEK 02/10/21 03/15/23 History mcg (50,000 unit) capsule (Vitamin D2) risperidone 1 mg tablet See Rx Instructions PO DAILY 12/07/21 03/15/23 History albuterol sulfate 90 mcg/actuation 1 puff inhalation Q6H PRN 03/15/23 03/16/23 History aerosol inhaler (ProAir HFA) Shortness Of Breath Or Wheezing hydroxyzine pamoate 50 mg capsule 100 mg PO BID 03/15/23 03/15/23 History lumateperone 42 mg capsule 42 mg PO DAILY 03/15/23 03/15/23 History (Caplyta) olanzapine 20 mg tablet (Zyprexa) 20 mg PO BEDTIME 03/15/23 03/15/23 History olanzapine 5 mg tablet (Zyprexa) 5 mg PO BEDTIME 03/15/23 03/15/23 History risperidone 1 mg tablet 0.5 - 1 mg PO BID PRN Anxiety 03/15/23 03/15/23 History triamcinolone acetonide 0.5 % appl topical 03/15/23 History topical cream Allergies Allergies Allergy/AdvReac Type Severity Reaction Status Date / Time Penicillins [PENICILLINS] Allergy Intermediate RASH Verified 03/12/23 12:08 ibuprofen [From MOTRIN] Allergy Unknown RASH Verified 03/12/23 12:08 aspartame [ASPARTAME] AdvReac Intermediate VOMITING Verified 03/12/23 12:08 quetiapine [From SEROQUEL] AdvReac Unknown AGITATION Verified 03/12/23 12:08 Motrin Allergy Unknown turns red Uncoded 03/12/23 12:08 Penicillin Allergy Unknown rash Uncoded 03/12/23 12:08 Mental Status Exam Mental Status Exam Narrative: Pt is alert and oriented; behavior is cooperative, friendly and calm; patient is not in distress; dressed in casual attire with unkempt hair but adequate hygiene; mood is described as ok and affect congruent; eye contact avoidant; Speech is normal rate, volume and prosody and not pressured; no psychomotor agitation/retardation present; thought process is organized and goal directed; Thought content is on tx; otherwise pertinent to relevant topics and without any delusional content, paranoid ideations or grandiosity; denies any SI/HI. Intermittent AH but able to be ignored Patients insight and judgment appear intact. Assessment & Plan Assessment & Plan (1) Autism: Status: Acute Code(s): F84.0 - Autistic disorder (2) Schizophrenia: Status: Acute Code(s): F20.9 - Schizophrenia, unspecified (3) Hyperprolactinemia: Status: Acute Code(s): E22.1 - Hyperprolactinemia (4) Hypothyroidism: Status: Acute Code(s): E03.9 - Hypothyroidism, unspecified Plan Patient is a 22-year-old male with history of autism, schizophrenia, CKD stage 3 (from [place]) who presents for dysregulated behavior, punching the lozada, himself and reporting increased AVH. Patient is calm, articulate and friendly on approach. He feels badly about recent event. Patient and Estonian-speaking mother agree that for the past month and a half since starting Caplyta at bedtime (and getting off scheduled Risperdal but remaining as a p.r.n.) he has had mood dysregulation in the afternoons; the trade off his freedom from AH at bedtime. Not sure if there are other contributing factors. -patient is currently on 2 antipsychotics, Caplyta and Zyprexa, with a 3rd, Risperdal used as a p.r.n..; reportedly plan was to taper off Zyprexa however mother is very worried about this since her son's been on it since a young age and he remains on total daily dose of 40 mg. -both agreed to perhaps increase the use of Risperdal p.r.n for afternoon agitation; however commercial real estate underwriter proposed trying Ativan, clonidine or propranolol instead which have a lower side effect risk which is amenable to both mother and patient Plan: CV Q 15 minute checks Continue Zyprexa 15 mg daily Continue Zyprexa 20 mg q.h.s. (reportedly, outpatient plan is to lower this medication) Continue Caplyta 42 mg q.h.s. Continue Risperdal 0.5 mg t.i.d. p.r.n. for AVH Add propranolol 10 mg t.i.d. p.r.n. for anxiety Add Ativan 0.5 mg b.i.d. p.r.n. for anxiety Patient educated on: diagnosis and medication risk/benefits Informed Consent: understands Reason for continued inpatient stay Substantial Risk for: rapid decompensation Statement Statement: I have reviewed the history and physical and performed a pertinent examination on my patient. No changes have occurred unless specified. If the History and Physical was not performed prior to admission, the Hospitalist's service will be consulted for completing the admission physical. Time Spent With Patient Time: Total time managing care of this patient today ____ minutes.
[2023-03-17 16:26] VITALS: BP 125/72; PULSE 102; RESP 16; TEMP 35.9; O2SAT 99
[2023-03-18 08:10] VITALS: BP 133/80; PULSE 104; RESP 16; TEMP 36.2; O2SAT 99
--- NOTE | 2023-03-18 08:51 | HO.PSYCHPN ---
Subjective Subjective Date of Service: 03/18/23 Reason For Visit: schizophrenia; autism spectrum d/o Interim History: met with patient; discussed with team; met with patient's mother in clerical associate Patient reports that he is doing well. He says he has without any AVH at all has been in a good mood, feeling calm. Denies feeling dysregulated at all in the afternoon yesterday or today. Discussed medication regimen with mother as well and agreed to continue home regimen for now. Patient has not felt the need to use p.r.ns; seems to be adjusting well to the milieu and interacting with others. Patient has been in behavioral control in the community for the past several years; 1st bout of behavioral dysregulation was about a month ago during which time medication was changed and started on Capylta; next time was this past week Mental Status Exam Mental Status Exam Narrative: Pt is alert and oriented; behavior is cooperative, friendly and calm; patient is not in distress; dressed in casual attire with unkempt hair but adequate hygiene; mood is described as good and affect congruent; eye contact avoidant; Speech is normal rate, volume and prosody and not pressured; no psychomotor agitation/retardation present; thought process is organized and goal directed; Thought content is on tx; otherwise pertinent to relevant topics and without any delusional content, paranoid ideations or grandiosity; denies any SI/HI. Intermittent AH but able to be ignored Patients insight and judgment appear intact. Diagnostics Vital Signs (24Hr): Vital Signs - 24 hr 03/17/23 09:00 03/17/23 16:26 Temperature 97.7 F 96.7 F L Pulse Rate 97 102 H Respiratory Rate 18 16 Blood Pressure 128/74 125/72 Pulse Oximetry 98 99 Oxygen Delivery Method Room Air Room Air BMI result Body Mass Index 40.7 Labs 03/15/23 21:56 03/15/23 21:56 Labs: Laboratory Results - last 48 hr 03/17/23 03/17/23 03/17/23 07:29 07:29 07:29 Estimat Average Glucose 94 Hemoglobin A1c % 4.9 Magnesium 2.2 Triglycerides 140 Cholesterol 182 LDL Cholesterol, Calc 126 HDL Cholesterol 28 Vitamin B12 288 Folate 6.0 TSH 0.36 Free T4 1.04 Medications Medications Current Medications Acetaminophen (Acetaminophen 325 Mg Tablet) 650 mg PO Q6H PRN PRN Reason: Headache/Pain Mild Scale (1-3) Al Hydroxide/Mg Hydroxide (Magnesium Hydrox/Alum Hydrox 30 Ml Oral.Susp) 30 ml PO Q6H PRN PRN Reason: Heartburn/Nausea Ergocalciferol (Ergocalciferol (Vitamin D2) 1,250 Mcg Capsule) 1,250 mcg PO Q7D [facility] Levothyroxine Sodium (Levothyroxine Sodium 125 Mcg Tablet) 125 mcg PO DAILY@0630 [facility] Last Admin: 03/18/23 06:22 Dose: 125 mcg Lorazepam (Lorazepam 0.5 Mg Tablet) 0.5 mg PO DAILY PRN PRN Reason: use for anxiety Magnesium Hydroxide (Milk Of Magnesia 30 Ml Oral.Susp) 30 ml PO DAILY PRN PRN Reason: Constipation Pt Own (Lumateperone ([Caplyta] 42 Mg)) 42 mg PO BEDTIME [facility] Last Admin: 03/17/23 21:22 Dose: 42 mg Olanzapine (Olanzapine 7.5 Mg Tablet) 15 mg PO DAILY OSMAR Olanzapine (Olanzapine 5 Mg Tablet) 25 mg PO BEDTIME [facility] Last Admin: 03/17/23 22:52 Dose: 25 mg Propranolol HCl (Propranolol Hcl 10 Mg Tablet) 10 mg PO TID PRN; Protocol PRN Reason: Use for ANXIETY Risperidone (Risperidone 0.5 Mg Tablet) 0.5 mg PO TID PRN PRN Reason: use for AVH Trazodone HCl (Trazodone Hcl 50 Mg Tablet) 50 mg PO BEDTIME PRN PRN Reason: Insomnia Allergies Allergies Allergy/AdvReac Type Severity Reaction Status Date / Time Penicillins [PENICILLINS] Allergy Intermediate RASH Verified 03/12/23 12:08 ibuprofen [From MOTRIN] Allergy Unknown RASH Verified 03/12/23 12:08 aspartame [ASPARTAME] AdvReac Intermediate VOMITING Verified 03/12/23 12:08 quetiapine [From SEROQUEL] AdvReac Unknown AGITATION Verified 03/12/23 12:08 Motrin Allergy Unknown turns red Uncoded 03/12/23 12:08 Penicillin Allergy Unknown rash Uncoded 03/12/23 12:08 Assessment & Plan Assessment & Plan (1) Autism: Status: Acute Code(s): F84.0 - Autistic disorder (2) Schizophrenia: Status: Acute Code(s): F20.9 - Schizophrenia, unspecified (3) Hyperprolactinemia: Status: Acute Code(s): E22.1 - Hyperprolactinemia (4) Hypothyroidism: Status: Acute Code(s): E03.9 - Hypothyroidism, unspecified Plan Patient is a 22-year-old male with history of autism, schizophrenia, CKD stage 3 (from [place]) who presents for dysregulated behavior, punching the lozada, himself and reporting increased AVH. Patient is calm, articulate and friendly on approach. He feels badly about recent event. Patient and Chilean-speaking mother agree that for the past month and a half since starting Caplyta at bedtime (and getting off scheduled Risperdal but remaining as a p.r.n.) he has had mood dysregulation in the afternoons; the trade off his freedom from AH at bedtime. Not sure if there are other contributing factors. -patient is currently on 2 antipsychotics, Caplyta and Zyprexa, with a 3rd, Risperdal used as a p.r.n..; reportedly plan was to taper off Zyprexa however mother is very worried about this since her son's been on it since a young age and he remains on total daily dose of 40 mg. -both agreed to perhaps increase the use of Risperdal p.r.n for afternoon agitation; however television writer proposed trying Ativan, clonidine or propranolol instead which have a lower side effect risk which is amenable to both mother and patient Hospital course: 03/18 patient remains stable; in good behavioral and impulse control; continue home regimen; patient remained stable through the week and will discharge Tuesday Plan: Three day notice Q 15 minute checks Continue Zyprexa 15 mg daily Continue Zyprexa 20 mg q.h.s. (reportedly, outpatient plan is to lower this medication) Continue Caplyta 42 mg q.h.s. Continue Risperdal 0.5 mg t.i.d. p.r.n. for AVH Add propranolol 10 mg t.i.d. p.r.n. for anxiety Add Ativan 0.5 mg b.i.d. p.r.n. for anxiety Patient educated on: diagnosis, medication risk/benefits and therapeutic strategies Informed Consent: understands Reason for continued inpatient stay Substantial Risk for: rapid decompensation Time Spent With Patient Time: Total time managing care of this patient today ____ minutes.
[2023-03-18 17:35] VITALS: BP 130/70; PULSE 85; RESP 14; TEMP 36.7; O2SAT 98
[2023-03-19 08:49] VITALS: BP 109/60; PULSE 83; RESP 16; TEMP 37.1; O2SAT 97
--- NOTE | 2023-03-19 10:05 | HO.PSYCHPN ---
Subjective Subjective Date of Service: 03/19/23 Reason For Visit: schizophrenia; autism spectrum d/o Subjective Notes: Conditional Voluntary Healthcare Proxy: No Guardianship: No Medical Problems Affecting Mental Status: No Interim History: Patient reports feeling better, just going to take a nap - Decreased anxiety, denies si/hi nursing reports he is visible on unit, social with some peers, Medication Compliance: Yes Side effects from medications: No Attending Groups: Intermittent Review of Systems Acute medical concerns: No Medical Review of Systems: unchanged Mental Status Exam Mental Status Exam Narrative: lying in bed Patient Appearance: Disheveled and Unkempt Patient Orientation: Person, Place, Time and Situation Level of Consciousness: Awake Patient Behavior: Dependent and Passive Mood Description: Calm Affect Description: Blunted Ability to Follow Directions: Fair Speech Pattern: Clear Hallucinations: None Delusions: Not Present Thought Process: Intact and Slowed Thinking Thought Content: positive for Poverty of Content Judgement: Fair Diagnostics Vital Signs (24Hr): Vital Signs - 24 hr 03/18/23 17:35 03/19/23 08:49 Temperature 98.1 F 98.8 F Pulse Rate 85 83 Respiratory Rate 14 16 Blood Pressure 130/70 109/60 Pulse Oximetry 98 97 Oxygen Delivery Method Room Air Room Air BMI result Body Mass Index 40.7 Labs 03/15/23 21:56 03/15/23 21:56 Labs: Laboratory Results - last 48 hr 03/17/23 07:29 TSH 0.36 Free T4 1.04 Medications Medications Current Medications Acetaminophen (Acetaminophen 325 Mg Tablet) 650 mg PO Q6H PRN PRN Reason: Headache/Pain Mild Scale (1-3) Al Hydroxide/Mg Hydroxide (Magnesium Hydrox/Alum Hydrox 30 Ml Oral.Susp) 30 ml PO Q6H PRN PRN Reason: Heartburn/Nausea Ergocalciferol (Ergocalciferol (Vitamin D2) 1,250 Mcg Capsule) 1,250 mcg PO Q7D [facility] Levothyroxine Sodium (Levothyroxine Sodium 125 Mcg Tablet) 125 mcg PO DAILY@0630 [facility] Last Admin: 03/19/23 06:19 Dose: 125 mcg Lorazepam (Lorazepam 0.5 Mg Tablet) 0.5 mg PO DAILY PRN PRN Reason: use for anxiety Magnesium Hydroxide (Milk Of Magnesia 30 Ml Oral.Susp) 30 ml PO DAILY PRN PRN Reason: Constipation Pt Own (Lumateperone ([Caplyta] 42 Mg)) 42 mg PO BEDTIME [facility] Last Admin: 03/18/23 21:03 Dose: 42 mg Olanzapine (Olanzapine 7.5 Mg Tablet) 15 mg PO DAILY [facility] Last Admin: 03/19/23 08:51 Dose: 15 mg Olanzapine (Olanzapine 5 Mg Tablet) 25 mg PO BEDTIME [facility] Last Admin: 03/18/23 21:04 Dose: 25 mg Propranolol HCl (Propranolol Hcl 10 Mg Tablet) 10 mg PO TID PRN; Protocol PRN Reason: Use for ANXIETY Risperidone (Risperidone 0.5 Mg Tablet) 0.5 mg PO TID PRN PRN Reason: use for AVH Last Admin: 03/18/23 16:30 Dose: 0.5 mg Trazodone HCl (Trazodone Hcl 50 Mg Tablet) 50 mg PO BEDTIME PRN PRN Reason: Insomnia Allergies Allergies Allergy/AdvReac Type Severity Reaction Status Date / Time Penicillins [PENICILLINS] Allergy Intermediate RASH Verified 03/12/23 12:08 ibuprofen [From MOTRIN] Allergy Unknown RASH Verified 03/12/23 12:08 aspartame [ASPARTAME] AdvReac Intermediate VOMITING Verified 03/12/23 12:08 quetiapine [From SEROQUEL] AdvReac Unknown AGITATION Verified 03/12/23 12:08 Motrin Allergy Unknown turns red Uncoded 03/12/23 12:08 Penicillin Allergy Unknown rash Uncoded 03/12/23 12:08 Assessment & Plan Assessment & Plan (1) Autism: Status: Acute Code(s): F84.0 - Autistic disorder (2) Schizophrenia: Status: Acute Code(s): F20.9 - Schizophrenia, unspecified (3) Hyperprolactinemia: Status: Acute Code(s): E22.1 - Hyperprolactinemia (4) Hypothyroidism: Status: Acute Code(s): E03.9 - Hypothyroidism, unspecified Plan Patient is a 22-year-old male with history of autism, schizophrenia, CKD stage 3 (from [place]) who presents for dysregulated behavior, punching the lozada, himself and reporting increased AVH. Patient is calm, articulate and friendly on approach. He feels badly about recent event. Patient and Japanese-speaking mother agree that for the past month and a half since starting Caplyta at bedtime (and getting off scheduled Risperdal but remaining as a p.r.n.) he has had mood dysregulation in the afternoons; the trade off his freedom from AH at bedtime. Not sure if there are other contributing factors. -patient is currently on 2 antipsychotics, Caplyta and Zyprexa, with a 3rd, Risperdal used as a p.r.n..; reportedly plan was to taper off Zyprexa however mother is very worried about this since her son's been on it since a young age and he remains on total daily dose of 40 mg. -both agreed to perhaps increase the use of Risperdal p.r.n for afternoon agitation; however remote mortgage underwriter proposed trying Ativan, clonidine or propranolol instead which have a lower side effect risk which is amenable to both mother and patient Hospital course: 03/18 patient remains stable; in good behavioral and impulse control; continue home regimen; patient remained stable through the week and will discharge Tuesday Plan: Three day notice Q 15 minute checks Continue Zyprexa 15 mg daily Continue Zyprexa 20 mg q.h.s. (reportedly, outpatient plan is to lower this medication) Continue Caplyta 42 mg q.h.s. Continue Risperdal 0.5 mg t.i.d. p.r.n. for AVH Add propranolol 10 mg t.i.d. p.r.n. for anxiety Add Ativan 0.5 mg b.i.d. p.r.n. for anxiety 03/19 - pt calm , cooperative- denying current complaints pending dc next week Reason for continued inpatient stay Substantial Risk for: inability to function Time Spent With Patient Time: Total time managing care of this patient today ____ minutes.
[2023-03-19 19:20] VITALS: BP 127/81; PULSE 95; TEMP 36.7
[2023-03-20 08:16] VITALS: BP 106/57; PULSE 83; RESP 16; TEMP 36.6; O2SAT 98
--- NOTE | 2023-03-20 10:21 | HO.PSYCHPN ---
Subjective Subjective Date of Service: 03/20/23 Reason For Visit: schizophrenia; autism spectrum d/o Subjective Notes: Conditional Voluntary Interim History: Pt reports ok sleep last night woke up to use br/get a drink of water, easily went back to sleep - reports mood ok, no si no s/e of medications nursing reports social with roommate otherwise keeps to himself- Interviewed patient out on porch where there was alot of noise/other things going on and patient though keeping to himself tolerating xs sensory input. Mental Status Exam Mental Status Exam Patient Appearance: Appropriate and Unkempt Patient Orientation: Person, Place, Time and Situation Level of Consciousness: Awake Patient Behavior: Passive Mood Description: Calm Affect Description: Apathetic and Blunted Ability to Follow Directions: Fair Speech Pattern: Clear Hallucinations: None Delusions: Not Present Thought Process: Intact and Goal Oriented Thought Content: positive for [place] and positive for Poverty of Content Judgement: Fair Diagnostics Vital Signs (24Hr): Vital Signs - 24 hr 03/19/23 19:20 03/20/23 08:16 Temperature 98.1 F 97.9 F Pulse Rate 95 83 Respiratory Rate 16 Blood Pressure 127/81 106/57 L Pulse Oximetry 98 Oxygen Delivery Method Room Air BMI result Body Mass Index 40.7 Labs 03/15/23 21:56 03/15/23 21:56 Medications Medications Current Medications Acetaminophen (Acetaminophen 325 Mg Tablet) 650 mg PO Q6H PRN PRN Reason: Headache/Pain Mild Scale (1-3) Al Hydroxide/Mg Hydroxide (Magnesium Hydrox/Alum Hydrox 30 Ml Oral.Susp) 30 ml PO Q6H PRN PRN Reason: Heartburn/Nausea Ergocalciferol (Ergocalciferol (Vitamin D2) 1,250 Mcg Capsule) 1,250 mcg PO Q7D [facility] Levothyroxine Sodium (Levothyroxine Sodium 125 Mcg Tablet) 125 mcg PO DAILY@0630 [facility] Last Admin: 03/20/23 06:18 Dose: 125 mcg Lorazepam (Lorazepam 0.5 Mg Tablet) 0.5 mg PO DAILY PRN PRN Reason: use for anxiety Magnesium Hydroxide (Milk Of Magnesia 30 Ml Oral.Susp) 30 ml PO DAILY PRN PRN Reason: Constipation Pt Own (Lumateperone ([Caplyta] 42 Mg)) 42 mg PO BEDTIME [facility] Last Admin: 03/19/23 22:23 Dose: 42 mg Olanzapine (Olanzapine 7.5 Mg Tablet) 15 mg PO DAILY [facility] Last Admin: 03/20/23 09:15 Dose: 15 mg Olanzapine (Olanzapine 5 Mg Tablet) 25 mg PO BEDTIME [facility] Last Admin: 03/19/23 22:21 Dose: 25 mg Propranolol HCl (Propranolol Hcl 10 Mg Tablet) 10 mg PO TID PRN; Protocol PRN Reason: Use for ANXIETY Risperidone (Risperidone 0.5 Mg Tablet) 0.5 mg PO TID PRN PRN Reason: use for AVH Last Admin: 03/18/23 16:30 Dose: 0.5 mg Trazodone HCl (Trazodone Hcl 50 Mg Tablet) 50 mg PO BEDTIME PRN PRN Reason: Insomnia Allergies Allergies Allergy/AdvReac Type Severity Reaction Status Date / Time Penicillins [PENICILLINS] Allergy Intermediate RASH Verified 03/12/23 12:08 ibuprofen [From MOTRIN] Allergy Unknown RASH Verified 03/12/23 12:08 aspartame [ASPARTAME] AdvReac Intermediate VOMITING Verified 03/12/23 12:08 quetiapine [From SEROQUEL] AdvReac Unknown AGITATION Verified 03/12/23 12:08 Motrin Allergy Unknown turns red Uncoded 03/12/23 12:08 Penicillin Allergy Unknown rash Uncoded 03/12/23 12:08 Assessment & Plan Assessment & Plan (1) Autism: Status: Acute Code(s): F84.0 - Autistic disorder (2) Schizophrenia: Status: Acute Code(s): F20.9 - Schizophrenia, unspecified (3) Hyperprolactinemia: Status: Acute Code(s): E22.1 - Hyperprolactinemia (4) Hypothyroidism: Status: Acute Code(s): E03.9 - Hypothyroidism, unspecified Plan Patient is a 22-year-old male with history of autism, schizophrenia, CKD stage 3 (from [place]) who presents for dysregulated behavior, punching the lozada, himself and reporting increased AVH. Patient is calm, articulate and friendly on approach. He feels badly about recent event. Patient and Danish-speaking mother agree that for the past month and a half since starting Caplyta at bedtime (and getting off scheduled Risperdal but remaining as a p.r.n.) he has had mood dysregulation in the afternoons; the trade off his freedom from AH at bedtime. Not sure if there are other contributing factors. -patient is currently on 2 antipsychotics, Caplyta and Zyprexa, with a 3rd, Risperdal used as a p.r.n..; reportedly plan was to taper off Zyprexa however mother is very worried about this since her son's been on it since a young age and he remains on total daily dose of 40 mg. -both agreed to perhaps increase the use of Risperdal p.r.n for afternoon agitation; however commercial real estate underwriter proposed trying Ativan, clonidine or propranolol instead which have a lower side effect risk which is amenable to both mother and patient Hospital course: 03/18 patient remains stable; in good behavioral and impulse control; continue home regimen; patient remained stable through the week and will discharge Tuesday Plan: Three day notice Q 15 minute checks Continue Zyprexa 15 mg daily Continue Zyprexa 20 mg q.h.s. (reportedly, outpatient plan is to lower this medication) Continue Caplyta 42 mg q.h.s. Continue Risperdal 0.5 mg t.i.d. p.r.n. for AVH Add propranolol 10 mg t.i.d. p.r.n. for anxiety Add Ativan 0.5 mg b.i.d. p.r.n. for anxiety 03/19 - pt calm , cooperative- denying current complaints pending dc next week 03/20 CTP Reason for continued inpatient stay Substantial Risk for: rapid decompensation Time Spent With Patient Time: Total time managing care of this patient today ____ minutes.
[2023-03-20 16:10] VITALS: BP 130/67; PULSE 95; TEMP 36.7
[2023-03-21 08:58] VITALS: BP 127/73; PULSE 104; RESP 16; TEMP 36.5; O2SAT 97
--- NOTE | 2023-03-21 10:28 | P.DS_ITS ---
DS: Providers Provider Date of Service: 03/21/23 Date of admission: 03/16/23 15:42 Date of discharge: 03/21/23 Primary care physician: Cassandra House MD Attending physician on admission: Westley Paiz Attending physician on discharge: Westley Paiz DS: Diagnosis Discharge Diagnosis (1) Autism: Status: Acute (2) Schizophrenia: Status: Acute (3) Hyperprolactinemia: Status: Inactive (4) Hypothyroidism: Status: Inactive DS: Medications Discharge Medications Home Medications: Home Medications Medication Instructions Recorded Confirmed ergocalciferol (vitamin D2) 1,250 1,250 mcg PO QWEEK 02/10/21 03/15/23 mcg (50,000 unit) capsule (Vitamin D2) albuterol sulfate 90 mcg/actuation 1 puff inhalation Q6H PRN 03/15/23 03/16/23 aerosol inhaler (ProAir HFA) Shortness Of Breath Or Wheezing olanzapine 20 mg tablet (Zyprexa) 20 mg PO BEDTIME 03/15/23 03/15/23 risperidone 1 mg tablet 0.5 - 1 mg PO BID PRN Anxiety 03/15/23 03/15/23 triamcinolone acetonide 0.5 % appl topical 03/15/23 topical cream Previous Rx's Medication Instructions Recorded bacitracin zinc 500 unit/gram 1 appl topical DAILY #14 grams 02/05/23 topical ointment levothyroxine 125 mcg tablet 125 mcg PO DAILY@0630 #0 tabs 03/21/23 lumateperone 42 mg capsule 42 mg PO BEDTIME #0 caps 03/21/23 olanzapine 7.5 mg tablet 15 mg PO DAILY #0 tabs 03/21/23 propranolol 10 mg tablet 10 mg PO TID PRN anxiety/mild 03/21/23 agitation 30 days #60 tabs Mental Status Exam Mental Status Exam Narrative: Pt is alert and oriented; behavior is cooperative, friendly and calm; patient is not in distress; dressed in casual attire with unkempt hair but adequate hygiene; mood is described as good and affect congruent; eye contact avoidant; Speech is normal rate, volume and prosody and not pressured; no psychomotor agitation/retardation present; thought process is organized and goal directed; Thought content is on tx; otherwise pertinent to relevant topics and without any delusional content, paranoid ideations or grandiosity; denies any SI/HI. Intermittent AH but able to be ignored Patients insight and judgment appear intact. Data Data Completed and Pending Completed studies during hospitalization [Text1]: 03/15/23 03/15/23 03/15/23 21:56 21:56 21:56 WBC 8.7 RBC 4.80 Hgb 13.0 L Hct 39.7 L MCV 82.7 MCH 27.1 MCHC 32.7 RDW 12.9 Plt Count 288 MPV 9.5 Immature Gran % (Auto) 0.5 H Neut % (Auto) 64.0 Lymph % (Auto) 27.5 [place] % (Auto) 5.4 Eos % (Auto) 2.3 Baso % (Auto) 0.3 Lymph # (Auto) 2.4 [place] # (Auto) 0.5 Eos # (Auto) 0.2 Baso # (Auto) 0.0 Abs Immat Gran (auto) 0.04 H Absolute Neuts (auto) 5.6 Absolute Nucleated RBC 0.000 Nucleated RBC % (auto) 0.0 Sodium 139 Potassium 3.6 Chloride 105 Carbon Dioxide 21 L Anion Gap 17 BUN 16 Creatinine 1.68 H Estim Creat Clear Calc 93.7 Estimated GFR 51 Random Glucose 129 H Estimat Average Glucose Hemoglobin A1c % Calcium 9.1 D Magnesium Total Bilirubin 0.3 Direct Bilirubin < 0.1 AST 14 ALT 37 Alkaline Phosphatase 86 Total Protein 7.4 Albumin 3.9 Triglycerides Cholesterol LDL Cholesterol, Calc HDL Cholesterol Vitamin B12 Folate TSH Free T4 Urine Color Urine Appearance Urine pH Ur Specific [place] Urine Protein Urine Glucose (UA) Urine Ketones Urine Blood Urine Nitrite Ur Leukocyte Esterase Urine Opiates Screen Urine Fentanyl Screen Ur Barbiturates Screen Lamotrigine Pending Ur Phencyclidine Scrn Ur Amphetamines Screen U Benzodiazepines Scrn Urine Cocaine Screen U Marijuana (THC) Screen Ethyl Alcohol < 10 COVID-19 ([facility]) COVID-19 Clin Com 03/15/23 03/15/23 03/16/23 22:10 22:10 01:05 WBC RBC Hgb Hct MCV MCH MCHC RDW Plt Count MPV Immature Gran % (Auto) Neut % (Auto) Lymph % (Auto) [place] % (Auto) Eos % (Auto) Baso % (Auto) Lymph # (Auto) [place] # (Auto) Eos # (Auto) Baso # (Auto) Abs Immat Gran (auto) Absolute Neuts (auto) Absolute Nucleated RBC Nucleated RBC % (auto) Sodium Potassium Chloride Carbon Dioxide Anion Gap BUN Creatinine Estim Creat Clear Calc Estimated GFR Random Glucose Estimat Average Glucose Hemoglobin A1c % Calcium Magnesium Total Bilirubin Direct Bilirubin AST ALT Alkaline Phosphatase Total Protein Albumin Triglycerides Cholesterol LDL Cholesterol, Calc HDL Cholesterol Vitamin B12 Folate TSH Free T4 Urine Color Yellow Urine Appearance Clear Urine pH 6.0 Ur Specific [place] <= 1.005 Urine Protein Negative Urine Glucose (UA) Negative Urine Ketones Negative Urine Blood Negative Urine Nitrite Negative Ur Leukocyte Esterase Negative Urine Opiates Screen Not Detected Urine Fentanyl Screen Not Detected Ur Barbiturates Screen Not Detected Lamotrigine Ur Phencyclidine Scrn Not Detected Ur Amphetamines Screen Not Detected U Benzodiazepines Scrn Not Detected Urine Cocaine Screen Not Detected U Marijuana (THC) Screen Not Detected Ethyl Alcohol COVID-19 ([facility]) Negative COVID-19 [facility] See Note 03/17/23 03/17/23 03/17/23 07:29 07:29 07:29 WBC RBC Hgb Hct MCV MCH MCHC RDW Plt Count MPV Immature Gran % (Auto) Neut % (Auto) Lymph % (Auto) [place] % (Auto) Eos % (Auto) Baso % (Auto) Lymph # (Auto) [place] # (Auto) Eos # (Auto) Baso # (Auto) Abs Immat Gran (auto) Absolute Neuts (auto) Absolute Nucleated RBC Nucleated RBC % (auto) Sodium Potassium Chloride Carbon Dioxide Anion Gap BUN Creatinine Estim Creat Clear Calc Estimated GFR Random Glucose Estimat Average Glucose 94 Hemoglobin A1c % 4.9 Calcium Magnesium 2.2 Total Bilirubin Direct Bilirubin AST ALT Alkaline Phosphatase Total Protein Albumin Triglycerides 140 Cholesterol 182 LDL Cholesterol, Calc 126 HDL Cholesterol 28 Vitamin B12 288 Folate 6.0 TSH 0.36 Free T4 1.04 Urine Color Urine Appearance Urine pH Ur Specific [place] Urine Protein Urine Glucose (UA) Urine Ketones Urine Blood Urine Nitrite Ur Leukocyte Esterase Urine Opiates Screen Urine Fentanyl Screen Ur Barbiturates Screen Lamotrigine Ur Phencyclidine Scrn Ur Amphetamines Screen U Benzodiazepines Scrn Urine Cocaine Screen U Marijuana (THC) Screen Ethyl Alcohol COVID-19 ([facility]) COVID-19 Clin Com DS: Summary Hospital Course Hospital Course: Patient is a 22-year-old male with history of autism, schizophrenia, CKD stage 3 (from [place]) who presents for dysregulated behavior, punching the lozada, hims elf and reporting increased AVH.? Patient is calm, articulate and friendly on approach.? He feels badly about recent event.? Patient and Ukrainian-speaking mother agree that for the past month and a half since starting Caplyta at bedtime (and getting off scheduled Risperdal but remaining as a p.r.n.) he has had mood dysregulation in the afternoons (but felt change gave him relief from bedtime AH). Once on the unit patient had returned and remained at baseline. His medication was kept pretty much the same and he did not use any PRNs. Patient was amenable to staying on the unit though he did place a 3 day notice; throughout his entire time he was in good behavioral and impulse control, appropriate with peers and staff, attended to ADLs and felt as though he had return to his regular self. Patient's mother visited frequently and construction assistant present to help with discussions; blog writer tried to get a hold of outpatient provider however was unable to do so. As mentioned patient remained at baseline and was doing well on the unit. His 3 day notice came due. He was not in imminent risk for harm to self or others and request for discharge honored. Time spent discussing smoking cessation with patient: 3 to 10 minutes Status at Discharge Functional status at discharge: independent ambulation Overall status at discharge: patient is back to baseline Time Spent with Patient Time attestation: Total time managing care of this patient today ____ minutes. Time spent: Less than 30 minutes Discharge Plan Discharge Anticipated Discharge Date/Time: 03/21/23 11:30 Patient Disposition: Home, Self-Care Discharge Diagnosis: Schizophrenia; ASD Referrals: Juan Maldonado: [facility] (therapist) [Other] - 03/22/23 3:15 pm (Scheduled appointment with outpatient therapist Appointment is in person at [facility]) Jyoti Hoffman [Other] - 03/31/23 3:00 pm (Scheduled appointment with outpatient psychiatrist Appointment is in person at [facility] in [place], [place].) Cassandra House MD [Primary Care Provider] - 1 Week Discharge Medications: New olanzapine 7.5 mg Tablet 15 mg PO DAILY Qty: 0 0RF levothyroxine 125 mcg Tablet 125 mcg PO DAILY@0630 Qty: 0 0RF lumateperone 42 mg Capsule 42 mg PO BEDTIME Qty: 0 0RF propranolol 10 mg Tablet 10 mg PO TID PRN (Reason: anxiety/mild agitation ) 30 Days Qty: 60 0RF Protocol: Hold for SBP/HR < HOLD for SBP < : 90 HOLD for HR < : 60 Continued triamcinolone acetonide 0.5 % cream topical albuterol sulfate [ProAir HFA] 90 mcg/actuation HFA aerosol inhaler 1 puff INHALATION Q6H PRN (Reason: Shortness Of Breath Or Wheezing) risperidone 1 mg tablet 0.5 - 1 mg PO BID PRN (Reason: Anxiety) olanzapine [Zyprexa] 20 mg tablet 20 mg PO BEDTIME bacitracin zinc 500 unit/gram ointment 1 appl topical DAILY Qty: 14 0RF ergocalciferol (vitamin D2) [Vitamin D2] 1,250 mcg (50,000 unit) capsule 1,250 mcg PO QWEEK Discontinued olanzapine [Zyprexa] 5 mg tablet 5 mg PO BEDTIME hydroxyzine pamoate 50 mg capsule 100 mg PO BID Caplyta 42 mg capsule 42 mg PO DAILY risperidone 1 mg tablet See Rx Instructions PO DAILY Rx Instructions: 1/2 tab am, 1/2 tab pm PO daily; Discharge Orders: Discharge Order (Routine); Ordered 03/21/23 Ordered By: Westley Paiz Diet: Regular diet Activity on Discharge: As tolerated Stand Alone Forms: Patient Portal Discharge page, Community Support Care Plan Goals: Maintain mood and safe behaviors Take medications as prescribed Practice coping skills Continue with outpatient providers and reach out to them as needed Health Concerns: Mood stability and behaviors Hypothyroid Plan of Treatment: Follow up with your PCP, psychiatric provider and other outpatient providers regarding above concerns Take medications as prescribed Assessment: Risk assessment at time of discharge:? Patient was interviewed prior to discharge and found to be fully oriented and without any SI or HI. Patient has insight and demonstrates good judgment in terms of wanting to pursue treatment. Patient is not in imminent risk of harm to self or others and has a safety plan that includes presenting to the closest ER or calling 911 if feeling unsafe.? Patient has been observed closely by nursing and unit staff throughout admission; patient has not engaged in any behaviors that suggest dangerousness to self or others and has demonstrated appropriate behaviors and impulse control Discharge Date/Time: 03/21/23 13:37
== END 2023-03-21 13:37 | disposition home or self-care (01) | DRG 750 ==
LOC: HO.ED 03-16 00:40 → HO.PM5 03-16 15:53
PROVIDERS: Clinical Nurse Specialist Psychiatric/Mental Health, Adult; Admitting Provider Psychiatry & Neurology Psychiatry; Emergency Provider Emergency Medicine; PCP Internal Medicine; Visit Provider Psychiatry & Neurology Psychiatry
DX: F20.9 Schizophrenia, unspecified (principal); E22.1 Hyperprolactinemia; N18.30 Chronic kidney disease, stage 3 unspecified; F84.0 Autistic disorder; E03.9 Hypothyroidism, unspecified; J45.909 Unspecified asthma, uncomplicated; T43.595S Adverse effect of other antipsychotics and neuroleptics, sequela; Z20.822 Contact with and (suspected) exposure to COVID-19; Z79.890 Hormone replacement therapy; Z79.899 Other long term (current) drug therapy
CPT/HCPCS: 36415; 80048; 80061; 80076; 80175; 80307; 81003; 82607; 82746; 83036; 83735; 84439; 84443; 85025; 87635; 93005; 99285; S9485

== ENCOUNTER → 2023-03-16 15:42 | Outpatient (BNV) | payer OTHER, SELFPAY | PROVIDERS: Admitting Provider Psychiatry & Neurology Psychiatry; Emergency Provider Emergency Medicine; PCP Internal Medicine; Visit Provider Psychiatry & Neurology Psychiatry | DX: F84.0 Autistic disorder (principal); F20.9 Schizophrenia, unspecified; E22.1 Hyperprolactinemia; E03.9 Hypothyroidism, unspecified | CPT/HCPCS: 90792; 99231; 99232; 99238 ==

== ENCOUNTER 2023-04-25 08:20 | Outpatient (REF) | payer OTHER, SELFPAY ==
[2023-04-25 10:22] LABS: Anion Gap 12 (12-20); Blood Urea Nitrogen 17 mg/dL (9-16); Calcium 9.9 mg/dL (8.4-10.2); Carbon Dioxide 27 mmol/L (22-29); Chloride 110 mmol/L (96-108); Estimated Glomerular Filt Rate 47; Sodium 145 mmol/L (135-145)
== END 2023-04-25 08:21 | disposition home or self-care (01) ==
LOC: HO.LAB 08:20
PROVIDERS: Visit Provider Internal Medicine Nephrology
DX: N18.31 Chronic kidney disease, stage 3a (principal)
CPT/HCPCS: 36415; 80051; 82310; 82565; 84520

== ENCOUNTER 2023-05-27 11:00 | Outpatient (REF) | payer OTHER, SELFPAY ==
[2023-05-27 11:33] LABS: MANUAL DIFF FLAG NO
[2023-05-27 11:53] LABS: Basophils Percent Auto 0.4 % (0-2); Eosinophils Absolute Auto 0.2 X10*3/uL (0.0-0.4); Eosinophils Percent Auto 2.6 % (0-4); Hematocrit 43.5 % (42.0-52.0); Hemoglobin 14.3 g/dl (14.0-18.0); Imm Gran Abs Auto 0.02 X10*3/uL (0.00-0.03); Imm Gran Pct Auto 0.3 % (0.0-0.4); Lymphocytes Absolute Auto 2.3 X10*3/uL (1.2-4.9); Lymphocytes Percent Auto 31.1 % (20-40); Mean Corpuscular HGB Conc 32.9 g/dl (31.0-36.0); Mean Corpuscular Hemoglobin 27.3 pg (27.0-33.0); Mean Platelet Volume 9.9 fL (9.4-12.4); Monocytes Absolute Auto 0.5 X10*3/uL (0.1-1.2); Neutrophils Absolute Auto 4.4 x10*3/uL (2.0-8.3); Neutrophils Percent Auto 58.6 % (45-73); Platelet Count 291 X10*3/uL (160-400); Red Blood Count 5.24 X10*6/uL (4.60-5.80); Red Cell Distribution Width 13.5 % (11.0-16.0); White Blood Count 7.4 X10*3/uL (4.8-10.8)
[2023-05-27 12:24] LABS: Estimated Average Glucose 94 mg/dL; Hemoglobin A1c % 4.9 % (<6.0)
[2023-05-27 12:54] LABS: Alanine Aminotransferase 25 U/L (0-40); Aspartate Amino Transferase 11 U/L (5-37); Cholesterol 184 mg/dL (<200); HDL Cholesterol 28 mg/dL (>40)
== END 2023-05-27 11:01 | disposition home or self-care (01) ==
LOC: HO.LAB 11:00
PROVIDERS: Visit Provider Psychiatry & Neurology Child & Adolescent Psychiatry
DX: Z79.899 Other long term (current) drug therapy (principal)
CPT/HCPCS: 36415; 82465; 83036; 83718; 84450; 84460; 85025

== ENCOUNTER 2023-07-17 14:28 | Emergency (ER) | payer OTHER, SELFPAY ==
[2023-07-17 14:39] VITALS: BP 150/100; PULSE 105; O2SAT 98
[2023-07-17 14:50] VITALS: BP 145/88; PULSE 101; RESP 20; TEMP 36.8; O2SAT 95; BMI 36.6
[2023-07-17 15:50] LABS: Appearance Urine Clear; Color Urine Yellow; Glucose Urine UA Negative (Negative); Leukocyte Esterase Urine Trace (Negative); Nitrite Urine Negative (Negative); Specific Gravity - Urine <= 1.005 (1.005-1.025); UMIC TRIGGER UACC YES; Urine Blood Negative (Negative); Urine Ketones Negative (Negative); Urine Protein Negative (Neg-Trace)
[2023-07-17 15:52] LABS: Bacteria Urine None Seen (None Seen); Hyaline Casts Urine 0-2 /LPF (0-2); RBC Urine 0-2 /HPF (0-2); Squamous Epithelial Cell Urine 0-2 /HPF (0-2); WBC Urine 0-5 /HPF (0-5)
[2023-07-17 15:54] LABS: Amphetamine Screen Urine Not Detected (Not Detect); Barbiturates, Urine Not Detected (Not Detect); Benzodiazepines Screen Urine Not Detected (Not Detect); Cannabinoid Screen Urine Not Detected (Not Detect); Cocaine Screen Urine Not Detected (Not Detect); Fentanyl, urine Not Detected (Not Detect); Opiate Screen Urine Not Detected (Not Detect); Phencyclidine Screen Urine Not Detected (Not Detect)
--- NOTE | 2023-07-17 16:05 | PC.NURSE ---
t/w met with clients mother outside unit and with staff to interpret i asked about list of medications and one seemed to be one med that is not in our formulary. caregiver stated that she felt she could not care for client any more, hes too much im in fear for my safety i asked caregiver to drop off medication at ED. asked care team Gracy (bc of speaking libyan) to relay request
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
--- NOTE | 2023-07-17 17:01 | PC.NURSE ---
clients non formulary medication was broought in by provider micaela, [address] clients locker. talked to pharmacy that is was received.
[2023-07-17 18:05] LABS: MANUAL DIFF FLAG NO
[2023-07-17 18:07] LABS: Basophils Percent Auto 0.3 % (0-2); Eosinophils Absolute Auto 0.1 X10*3/uL (0.0-0.4); Eosinophils Percent Auto 0.8 % (0-4); Hemoglobin 14.5 g/dl (14.0-18.0); Imm Gran Abs Auto 0.03 X10*3/uL (0.00-0.03); Imm Gran Pct Auto 0.2 % (0.0-0.4); Lymphocytes Absolute Auto 1.9 X10*3/uL (1.2-4.9); Lymphocytes Percent Auto 15.8 % (20-40); Mean Corpuscular Hemoglobin 27.2 pg (27.0-33.0); Mean Corpuscular Volume 82.4 fL (80.0-98.0); Monocytes Absolute Auto 0.7 X10*3/uL (0.1-1.2); Monocytes Percent Auto 5.5 % (2-11); Neutrophils Absolute Auto 9.5 x10*3/uL (2.0-8.3); Neutrophils Percent Auto 77.4 % (45-73); Platelet Count 291 X10*3/uL (160-400); Red Blood Count 5.34 X10*6/uL (4.60-5.80); Red Cell Distribution Width 13.4 % (11.0-16.0); White Blood Count 12.2 X10*3/uL (4.8-10.8)
[2023-07-17 18:22] LABS: Alanine Aminotransferase 29 U/L (0-40); Albumin Level 4.7 g/dL (3.5-5.0); Alkaline Phosphatase 107 U/L (39-117); Anion Gap 14 (12-20); Aspartate Amino Transferase 15 U/L (5-37); Bilirubin Total 0.4 mg/dL (0.0-1.0); Blood Urea Nitrogen 13 mg/dL (9-16); Carbon Dioxide 25 mmol/L (22-29); Chloride 105 mmol/L (96-108); Creatinine Clr Calc Pharmacy 72.7; Estimated Glomerular Filt Rate 50; Glucose Fasting 89 mg/dL (60-99); Potassium 3.6 mmol/L (3.3-5.1); Sodium 140 mmol/L (135-145); Total Protein 8.6 g/dL (6.5-8.0)
[2023-07-17 18:26] LABS: Ethanol < 10 mg/dL
[2023-07-17 18:42] LABS: TSH reflex Free T4 0.14 uIU/mL (0.32-4.0)
[2023-07-17 19:21] LABS: Free T4 (Free Thyroxine) 1.14 ng/dL (0.71-1.85)
[2023-07-17 20:10] VITALS: BP 139/84; PULSE 96; RESP 20; TEMP 36.8; O2SAT 98
[2023-07-18] MEDS: OLANZapine 10 MG TABLET 20 MG PO (02:15)
[2023-07-18 03:41] VITALS: BP 119/80; PULSE 94; RESP 16; TEMP 36.3; O2SAT 97
[2023-07-18] MEDS: Levothyroxine Sodium 100 MCG TABLET PO (06:46)
--- NOTE | 2023-07-18 07:21 | PC.NURSE ---
PT intially upset that he had not seen social services counselor. PT called mom noting that he needed to be picked up REN as he did not have anywhere to sleep and could not wait to for the next day to be seen. PT redirectable. provided ice cream nd warm blanket. PT was able to sleep for most of the evening. Was awake periodically to use the bathroom. PT noted he was concerned he wasn't going to be able to sleep well, but noted he did have a good nights sleep. Order for car team consult appeared to not have been placed when pt arrived. This RN submitted order. Care team plans to see pt between 8-9am 07/18. Day shift RNSola reported that pt non formulary medication, Caplyta, was in PT's locker- not inventoried by pharmacy. Safety precautions in place. Plan of care ongoing.
[2023-07-18] MEDS: OLANZapine 7.5 MG TABLET 15 MG PO (09:39)
--- NOTE | 2023-07-18 11:22 | PC.NURSE ---
Phani was OOB this morning and adherent with his AM scheduled medication. Denies SI/HI/AH. Had a visit with mom which went well. Belongings returned and Phani was discharged to his family.
== END 2023-07-18 11:24 | disposition home or self-care (01) ==
PROVIDERS: Emergency Medicine; Emergency Provider Emergency Medicine
DX: F91.9 Conduct disorder, unspecified (principal); E03.9 Hypothyroidism, unspecified; F20.9 Schizophrenia, unspecified; F32.A Depression, unspecified; F84.0 Autistic disorder; Z79.899 Other long term (current) drug therapy
CPT/HCPCS: 36415; 80053; 80307; 81001; 84439; 84443; 85025; 99284; S9485

== ENCOUNTER 2023-08-12 09:53 | Outpatient (REF) | payer OTHER, SELFPAY ==
[2023-08-12 11:04] LABS: Anion Gap 12 (12-20); Blood Urea Nitrogen 19 mg/dL (9-16); Calcium 9.4 mg/dL (8.4-10.2); Carbon Dioxide 26 mmol/L (22-29); Chloride 111 mmol/L (96-108); Estimated Glomerular Filt Rate > 60; Potassium 3.9 mmol/L (3.3-5.1); Sodium 145 mmol/L (135-145)
== END 2023-08-12 09:54 | disposition home or self-care (01) ==
LOC: HO.LAB 09:53
PROVIDERS: PCP Internal Medicine; Visit Provider Internal Medicine Nephrology
DX: N18.31 Chronic kidney disease, stage 3a (principal)
CPT/HCPCS: 36415; 80051; 82310; 82565; 84520

== ENCOUNTER 2023-08-30 09:59 | Outpatient (REF) | payer OTHER, SELFPAY ==
[2023-08-30 11:25] LABS: Alanine Aminotransferase 47 U/L (0-40); Albumin Level 3.8 g/dL (3.5-5.0); Alkaline Phosphatase 93 U/L (39-117); Anion Gap 12 (12-20); Aspartate Amino Transferase 21 U/L (5-37); Bilirubin Total 0.2 mg/dL (0.0-1.0); Blood Urea Nitrogen 17 mg/dL (9-16); Calcium 9.4 mg/dL (8.4-10.2); Carbon Dioxide 28 mmol/L (22-29); Chloride 108 mmol/L (96-108); Estimated Glomerular Filt Rate 54; Glucose Random 82 mg/dL (60-115); Potassium 3.9 mmol/L (3.3-5.1); Sodium 144 mmol/L (135-145); Total Protein 7.3 g/dL (6.5-8.0)
[2023-08-30 11:39] LABS: Free T4 (Free Thyroxine) 0.91 ng/dL (0.71-1.85); Thyroid Stimulating Hormone 0.99 uIU/mL (0.32-4.0)
== END 2023-08-30 10:00 | disposition home or self-care (01) ==
LOC: HO.LAB 09:59
PROVIDERS: PCP Internal Medicine; Visit Provider Internal Medicine
DX: E03.8 Other specified hypothyroidism (principal); I12.9 Hypertensive chronic kidney disease with stage 1 through stage 4 chronic kidney disease, or unspecified chronic kidney disease; I47.10 Supraventricular tachycardia, unspecified; N18.9 Chronic kidney disease, unspecified
CPT/HCPCS: 36415; 80053; 84439; 84443; 84481

== ENCOUNTER 2023-10-10 01:38 | Emergency (ER) | payer OTHER, SELFPAY ==
[2023-10-10 01:49] VITALS: BP 110/57; PULSE 80; RESP 17; TEMP 36.4; O2SAT 97
[2023-10-10 01:53] VITALS: BP 110/57; BP 150/110; PULSE 80; PULSE 84; RESP 14; TEMP 36.4; O2SAT 96; O2SAT 97; BMI 43.6
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
[2023-10-10 03:19] LABS: Appearance Urine Clear; Color Urine Yellow; Glucose Urine UA Negative (Negative); Leukocyte Esterase Urine Negative (Negative); Nitrite Urine Negative (Negative); Specific Gravity - Urine <= 1.005 (1.005-1.025); Urine Blood Negative (Negative); Urine Ketones Negative (Negative); Urine Protein Negative (Neg-Trace)
--- NOTE | 2023-10-10 03:55 | ED_ITS ---
HPI - Psych General Chief Complaint: Psychiatric Symptoms Stated Complaint: psych meds not working, wants to be elevated Time Seen by Provider: 10/10/23 03:42 Source: patient and family (Mother) Mode of arrival: EMS Limitations: no limitations History of Present Illness HPI Narrative: 23-year-old male with a history of hyperprolactinemia, hypothyroidism, autism, depression, asthma, schizophrenia who was brought to emergency department by ambulance for evaluation of insomnia and nightmares. Patient states that over the past 2 days she has been having nightmares where he sees the bodies of his family members. He is also having auditory hallucinations were voices are telling to just do it. Patient states that he has no intention of acting on the nightmares or the command auditory hallucinations. His mother thinks that the Klonopin should be given more often since she thinks this medicine has been helping him. Patient takes Klonopin 0.5 mg b.i.d.. Related Data Home Medications Medication Instructions Recorded Confirmed olanzapine 20 mg tablet (Zyprexa) 20 mg PO BEDTIME 03/15/23 07/17/23 risperidone 1 mg tablet 0.5 - 1 mg PO BID PRN Anxiety 03/15/23 07/17/23 levothyroxine 100 mcg tablet 100 mcg PO DAILY 07/17/23 07/17/23 lumateperone 42 mg capsule 42 mg PO DAILY 07/17/23 07/17/23 (Caplyta) Previous Rx's Medication Instructions Recorded olanzapine 7.5 mg tablet 15 mg (2 x 7.5 mg) PO DAILY #0 tabs 03/21/23 Allergies Allergy/AdvReac Type Severity Reaction Status Date / Time Penicillins [PENICILLINS] Allergy Intermediate RASH Verified 07/17/23 14:53 ibuprofen [From MOTRIN] Allergy Unknown RASH Verified 07/17/23 14:53 aspartame [ASPARTAME] AdvReac Intermediate VOMITING Verified 07/17/23 14:53 quetiapine [From SEROQUEL] AdvReac Unknown AGITATION Verified 07/17/23 14:53 Motrin Allergy Unknown turns red Uncoded 03/12/23 12:08 Penicillin Allergy Unknown rash Uncoded 03/12/23 12:08 PMFSH Past Medical History Medical History Hyperprolactinemia Hypothyroidism Autistic disorder Depression Asthma Schizophrenia Surgical History No pertinent past surgical history Family History Family History Father Knee tumor Mother Healthy adult Social History Social History Household Members: Family Household Members Other:: Mother, Father Housing: House Do you presently have visiting nurse or other home services: No Alcohol intake: never Patient Tobacco Use Status: Never used Tobacco Smoked in Last 30 Days: No Use of substances other than those prescribed or required for medical reasons: No Advance Directives: No Advance Directives Information Provided: No service: No Sexual orientation: Straight/Heterosexual Physical Exam 2 Vital Signs: Vital Signs: Last Vital Signs Temp 97.5 F 10/10/23 01:53 Pulse 80 10/10/23 01:53 Resp 14 10/10/23 01:53 BP 110/57 L 10/10/23 01:53 Pulse Ox 97 10/10/23 01:53 O2 Del Method Room Air 10/10/23 01:53 BMI result Body Mass Index 43.6 Vital signs were normal Exam General: Awake, alert in no distress EENT: PERRL, Lids normal, sclera normal, conjunctiva normal, nose normal , ears normal, throat without erythema or exudates Neck: Supple, no adenopathy, no trachea midline or C-spine tenderness Lung: breath sounds symmetric, no wheezing, rales or rhonchi Chest: symmetric movement, nontender Heart: regular rate and rhythm, normal S1, S2 no murmurs or rubs Abdomen: soft, non-tender, nondistended, normal bowel sounds Back: no vertebral tenderness, no CVAT Extremities: no deformities, moves all extremities symmetrically Neuro: Awake, alert, oriented, normal speech, cranial nerves intact, moves all extremities symmetrically Psych: Patient is cooperative, answers all questions appropriately, does not appear to be anxious Medications Administered Discontinued Medications Generic Name Dose Route Start Last Admin Trade Name Freq PRN Reason Stop Dose Admin Clonazepam 1 mg 10/10/23 03:53 10/10/23 04:03 Clonazepam 1 Mg Tablet PO 10/10/23 03:54 1 mg ONCE ONE Administration Medical Decision Making Medical Decision Making MDM Narrative: 23-year-old male with a history of hyperprolactinemia, hypothyroidism, autism, depression, asthma, schizophrenia who was brought to emergency department by ambulance for evaluation of insomnia, nightmares involving the of his family members and command auditory hallucination telling him quotation ?to do it ?. Patient has had insomnia for the last several days as well. Patient states he does not believe that he is going to act on these nightmares or hallucinations. His mother believes that the patient's Klonopin should either be increased in frequency or dose since this medication seems to help him the most. Patient's physical examination was unremarkable Differential diagnosis includes was not limited to depression, anxiety, suicidal ideation, homicidal ideation, command auditory hallucinations, polysubstance use disorder, alcohol intoxication, electrolyte abnormalities, anemia Following evaluation was ordered:CBC, CMP, drug screen urine, ethanol level, COVID-19, influenza, urinalysis Patient was treated with the following: Klonopin 1 mg orally 05:57 Start physician observation. My interpretation patient's laboratory evaluation is as follows: CBC was normal. BUN and creatinine elevated 17 and 1.63-this is chronic. Urinalysis was negative. Urine tox screen was negative. Ethanol was below detectable limits. COVID-19 influenza were negative. Patient is medically cleared for evaluation by care team. Patient will be kept in the emergency department until care team evaluation and disposition can be determined or until the patient's symptoms improve over time. Admission/Observation Consideration of admission/observation: Escalation of care including admission/observation considered Lab Data 10/10/23 04:10 10/10/23 04:10 Labs: Lab Results 10/10/23 10/10/23 10/10/23 Range/Units 03:12 04:10 04:11 WBC 8.7 (4.8-10.8) X10*3/uL RBC 4.99 (4.60-5.80) X10*6/uL Hgb 13.6 L (14.0-18.0) g/dl Hct 41.2 L (42.0-52.0) % MCV 82.6 (80.0-98.0) fL MCH 27.3 (27.0-33.0) pg MCHC 33.0 (31.0-36.0) g/dl RDW 13.5 (11.0-16.0) % Plt Count 257 (160-400) X10*3/uL MPV 9.8 (9.4-12.4) fL Immature Gran % (Auto) 0.2 (0.0-0.4) % Neut % (Auto) 54.9 (45-73) % Lymph % (Auto) 34.3 (20-40) % [place] % (Auto) 7.4 (2-11) % Eos % (Auto) 2.9 (0-4) % Baso % (Auto) 0.3 (0-2) % Lymph # (Auto) 3.0 (1.2-4.9) X10*3/uL [place] # (Auto) 0.6 (0.1-1.2) X10*3/uL Eos # (Auto) 0.3 (0.0-0.4) X10*3/uL Baso # (Auto) 0.0 (0.0-0.2) X10*3/uL Abs Immat Gran (auto) 0.02 (0.00-0.03) X10*3/uL Absolute Neuts (auto) 4.8 (2.0-8.3) x10*3/uL Absolute Nucleated RBC 0.000 (0.0-0.012) X10*3/uL Nucleated RBC % (auto) 0.0 (0.0-0.2) /100WBC Sodium 143 (135-145) mmol/L Potassium 3.8 (3.3-5.1) mmol/L Chloride 108 (96-108) mmol/L Carbon Dioxide 26 (22-29) mmol/L Anion Gap 13 (12-20) BUN 17 H (9-16) mg/dL Creatinine 1.63 H (0.5-1.4) mg/dL Estim Creat Clear Calc 101.5 Estimated GFR 53 Random Glucose 97 (60-115) mg/dL Calcium 9.2 (8.4-10.2) mg/dL Total Bilirubin 0.2 (0.0-1.0) mg/dL AST 10 (5-37) U/L ALT 25 (0-40) U/L Alkaline Phosphatase 79 (39-117) U/L Total Protein 7.3 (6.5-8.0) g/dL Albumin 3.9 (3.5-5.0) g/dL Urine Color Yellow Urine Appearance Clear Urine pH 6.0 (5.0-9.0) Ur Specific [place] <= 1.005 (1.005-1.025) Urine Protein Negative (Neg-Trace) mg/dL Urine Glucose (UA) Negative (Negative) mg/dL Urine Ketones Negative (Negative) mg/dL Urine Blood Negative (Negative) Urine Nitrite Negative (Negative) Ur Leukocyte Esterase Negative (Negative) Urine Opiates Screen Not Detected (Not Detect) Urine Fentanyl Screen Not Detected (Not Detect) Ur Barbiturates Screen Not Detected (Not Detect) Ur Phencyclidine Scrn Not Detected (Not Detect) Ur Amphetamines Screen Not Detected (Not Detect) U Benzodiazepines Scrn Not Detected (Not Detect) Urine Cocaine Screen Not Detected (Not Detect) U Marijuana (THC) Screen Not Detected (Not Detect) Ethyl Alcohol < 10 mg/dL COVID-19 (DENISE) Negative (Negative) COVID-19 Clin Com See Note Influenza Type A (AMAYA) Negative (Negative) Influenza Type B (AMAYA) Negative (Negative) Influenza A & B Note See Note Independent Historian Clinical information obtained from an independent historian. History obtained from or confirmed by: Parent Discharge Plan Discharge Clinical Impression: Auditory hallucination, Suicidal ideation, Homicidal ideations, Insomnia Patient Disposition: Still a Patient Prescriptions: No Action risperidone 1 mg tablet 0.5 - 1 mg PO BID PRN (Reason: Anxiety) olanzapine [Zyprexa] 20 mg tablet 20 mg PO BEDTIME olanzapine 7.5 mg Tablet 15 mg PO DAILY Qty: 0 0RF levothyroxine 100 mcg tablet 100 mcg PO DAILY Caplyta 42 mg capsule 42 mg PO DAILY Interventions: [place]-Suicide Risk Severity Scale Last Done: 10/10/23 02:04
[2023-10-10] MEDS: clonazePAM 1 MG TABLET PO (04:03)
[2023-10-10 04:16] LABS: Basophils Percent Auto 0.3 % (0-2); Eosinophils Absolute Auto 0.3 X10*3/uL (0.0-0.4); Eosinophils Percent Auto 2.9 % (0-4); Hematocrit 41.2 % (42.0-52.0); Hemoglobin 13.6 g/dl (14.0-18.0); Imm Gran Abs Auto 0.02 X10*3/uL (0.00-0.03); Imm Gran Pct Auto 0.2 % (0.0-0.4); Lymphocytes Percent Auto 34.3 % (20-40); MANUAL DIFF FLAG NO; Mean Corpuscular Hemoglobin 27.3 pg (27.0-33.0); Mean Corpuscular Volume 82.6 fL (80.0-98.0); Mean Platelet Volume 9.8 fL (9.4-12.4); Monocytes Absolute Auto 0.6 X10*3/uL (0.1-1.2); Monocytes Percent Auto 7.4 % (2-11); Neutrophils Absolute Auto 4.8 x10*3/uL (2.0-8.3); Neutrophils Percent Auto 54.9 % (45-73); Platelet Count 257 X10*3/uL (160-400); Red Blood Count 4.99 X10*6/uL (4.60-5.80); Red Cell Distribution Width 13.5 % (11.0-16.0); White Blood Count 8.7 X10*3/uL (4.8-10.8)
[2023-10-10 04:26] LABS: Amphetamine Screen Urine Not Detected (Not Detect); Barbiturates, Urine Not Detected (Not Detect); Benzodiazepines Screen Urine Not Detected (Not Detect); Cannabinoid Screen Urine Not Detected (Not Detect); Cocaine Screen Urine Not Detected (Not Detect); Fentanyl, urine Not Detected (Not Detect); Opiate Screen Urine Not Detected (Not Detect); Phencyclidine Screen Urine Not Detected (Not Detect)
[2023-10-10 04:31] LABS: Alanine Aminotransferase 25 U/L (0-40); Albumin Level 3.9 g/dL (3.5-5.0); Alkaline Phosphatase 79 U/L (39-117); Anion Gap 13 (12-20); Aspartate Amino Transferase 10 U/L (5-37); Bilirubin Total 0.2 mg/dL (0.0-1.0); Blood Urea Nitrogen 17 mg/dL (9-16); Calcium 9.2 mg/dL (8.4-10.2); Carbon Dioxide 26 mmol/L (22-29); Chloride 108 mmol/L (96-108); Creatinine Clr Calc Pharmacy 101.5; Estimated Glomerular Filt Rate 53; Ethanol < 10 mg/dL; Glucose Random 97 mg/dL (60-115); Potassium 3.8 mmol/L (3.3-5.1); Sodium 143 mmol/L (135-145); Total Protein 7.3 g/dL (6.5-8.0)
[2023-10-10 04:34] LABS: COVID-19 Test Negative (Negative); IDNOW Serial# 08D9AD1C; IDNOW Serial# 152EDE1D; Influenza A Negative (Negative); Influenza B2 Negative (Negative)
--- NOTE | 2023-10-10 09:26 | PC.NURSE ---
Medication list requested from [place] pharmacy, list to be faxed to [facility].
--- NOTE | 2023-10-10 10:27 | PC.NURSE ---
Per CARE team, Mom is aware of discharge and is on her way.
--- NOTE | 2023-10-10 11:24 | PHA.MEDREC ---
Pharmacy Consult ? Medication Reconciliation Pharmacy has completed the medication reconciliation. RN faxed up patients medication list from [place]
== END 2023-10-10 10:57 | disposition home or self-care (01) ==
PROVIDERS: Emergency Provider Emergency Medicine Emergency Medical Services; PCP Internal Medicine
DX: G47.00 Insomnia, unspecified (principal); R45.850 Homicidal ideations; R45.851 Suicidal ideations; F20.9 Schizophrenia, unspecified; F51.5 Nightmare disorder; E03.9 Hypothyroidism, unspecified; Z11.52 Encounter for screening for COVID-19
CPT/HCPCS: 80053; 80307; 81003; 85025; 87502; 87635; 99285; S9485

== ENCOUNTER 2023-12-14 07:41 | Emergency (ER) | payer OTHER, SELFPAY ==
--- NOTE | ~2023-12-14 | XR_ITS ---
EXAMINATION: XR CHEST CLINICAL INFORMATION: Chest pain COMPARISON: None available. TECHNIQUE: 2 views of the chest were obtained. FINDINGS: No significant abnormality is noted involving the heart, lungs, mediastinum, bony thorax or soft tissues. XR/XR chest 2V IMPRESSION: Unremarkable examination.
--- NOTE | 2023-12-14 07:42 | ECG_ITS ---
Test Reason : chest pain Blood Pressure : / mmHG Vent. Rate : 063 BPM Atrial Rate : 063 BPM P-R Int : 180 ms QRS Dur : 096 ms QT Int : 414 ms P-R-T Axes : 011 -04 015 degrees QTc Int : 423 ms Normal sinus rhythm Minimal voltage criteria for LVH, may be normal variant ( R in aVL ) Borderline ECG When compared with ECG of 16-MAR-2023 08:28, No significant change was found Referred By: Generic ED Physician Electronically Signed By:TAYLER HUITRON MD
[2023-12-14 07:43] VITALS: BP 131/87; PULSE 68; RESP 20; TEMP 36.4; O2SAT 98; BMI 30.4
[2023-12-14 07:57] LABS: MANUAL DIFF FLAG NO
[2023-12-14 07:58] LABS: Basophils Absolute Auto 0.1 X10*3/uL (0.0-0.2); Basophils Percent Auto 0.5 % (0-2); Eosinophils Absolute Auto 0.3 X10*3/uL (0.0-0.4); Eosinophils Percent Auto 3.2 % (0-4); Hematocrit 43.3 % (42.0-52.0); Imm Gran Abs Auto 0.03 X10*3/uL (0.00-0.03); Imm Gran Pct Auto 0.3 % (0.0-0.4); Lymphocytes Absolute Auto 2.3 X10*3/uL (1.2-4.9); Lymphocytes Percent Auto 22.6 % (20-40); Mean Corpuscular HGB Conc 32.3 g/dl (31.0-36.0); Mean Corpuscular Hemoglobin 26.9 pg (27.0-33.0); Mean Corpuscular Volume 83.1 fL (80.0-98.0); Mean Platelet Volume 9.6 fL (9.4-12.4); Monocytes Absolute Auto 0.7 X10*3/uL (0.1-1.2); Monocytes Percent Auto 6.5 % (2-11); Neutrophils Absolute Auto 6.9 x10*3/uL (2.0-8.3); Neutrophils Percent Auto 66.9 % (45-73); Platelet Count 244 X10*3/uL (160-400); Red Blood Count 5.21 X10*6/uL (4.60-5.80); Red Cell Distribution Width 13.6 % (11.0-16.0); White Blood Count 10.3 X10*3/uL (4.8-10.8)
[2023-12-14 08:14] LABS: Anion Gap 10 (12-20); Blood Urea Nitrogen 19 mg/dL (9-16); Calcium 9.3 mg/dL (8.4-10.2); Carbon Dioxide 28 mmol/L (22-29); Chloride 108 mmol/L (96-108); Creatinine Clr Calc Pharmacy 72.2; Estimated Glomerular Filt Rate 49; Glucose Random 133 mg/dL (60-115); Potassium 3.6 mmol/L (3.3-5.1); Sodium 142 mmol/L (135-145)
[2023-12-14 08:23] LABS: Troponin-I High Sensitivity < 2.7 ng/L (<3.5-35.0)
--- NOTE | 2023-12-14 11:48 | ED.CHESTPAIN ---
HPI - Chest Pain General Chief Complaint: Chest Pain Stated Complaint: Chest pain Time Seen by Provider: 12/14/23 11:40 Source: patient and family Mode of arrival: ambulatory Limitations: no limitations History of Present Illness HPI narrative: Patient is a 23-year-old male with history of schizophrenia, asthma, autism, hypothyroidism, hyperprolactinemia presenting to the emergency department with complaint of right-sided chest pain for several hours last night. He rates the pain at 10/10. States the pain has since fully resolved. He took [id number] medication for gas, drank sprite, walked around all without relief. Vomited x 1, states it was non-bloody, non-bilious. Denies current abdominal pain or nausea. MD complaint: chest pain Pertinent past history: asthma Onset (ago): hour(s) Timing of current episode: now resolved Onset: during rest Pain location: right chest Pain radiation: none Severity: severe Pain scale (0-10): 10 Quality: aching Relieving factors: nothing Associated symptoms: vomiting Treatment prior to arrival: other Related Data Home Medications Medication Instructions Recorded Confirmed olanzapine 20 mg tablet (Zyprexa) 20 mg PO BEDTIME 03/15/23 10/10/23 levothyroxine 100 mcg tablet 100 mcg PO DAILY 07/17/23 10/10/23 lumateperone 42 mg capsule 42 mg PO DAILY 07/17/23 10/10/23 (Caplyta) clonazepam 0.5 mg tablet 0.5 mg PO BID 10/10/23 10/10/23 guanfacine 2 mg tablet,extended 2 mg PO QAM 10/10/23 10/10/23 release 24 hr olanzapine 7.5 mg tablet 7.5 mg PO DAILY 10/10/23 10/10/23 risperidone 1 mg tablet 0.5 - 1 mg PO BID PRN Agitation 10/10/23 10/10/23 sertraline 50 mg tablet 50 mg PO QAM 10/10/23 10/10/23 Previous Rx's Medication Instructions Recorded lidocaine 5 % topical patch 1 patch topical DAILY #15 ea 12/14/23 Allergies Allergy/AdvReac Type Severity Reaction Status Date / Time Penicillins [PENICILLINS] Allergy Intermediate RASH Verified 07/17/23 14:53 ibuprofen [From MOTRIN] Allergy Unknown RASH Verified 07/17/23 14:53 aspartame [ASPARTAME] AdvReac Intermediate VOMITING Verified 07/17/23 14:53 quetiapine [From SEROQUEL] AdvReac Unknown AGITATION Verified 07/17/23 14:53 Motrin Allergy Unknown turns red Uncoded 03/12/23 12:08 Penicillin Allergy Unknown rash Uncoded 03/12/23 12:08 Review of Systems Review of Systems: As per HPI. Yes all other systems are reviewed and are negative Constitutional: Constitutional: Reports as per HPI [facility] Past Medical History Medical History Hyperprolactinemia Hypothyroidism Autistic disorder Depression Asthma Schizophrenia Surgical History No pertinent past surgical history Family History Family History Father Knee tumor Mother Healthy adult Social History Social History Household Members: Family Household Members Other:: Mother, Father Housing: House Do you presently have visiting nurse or other home services: No Alcohol intake: never Patient Tobacco Use Status: Never used Tobacco Advance Directives: No Advance Directives Information Provided: No service: No Sexual orientation: Straight/Heterosexual Physical Exam Vital Signs: Vital Signs: Last Vital Signs Temp 97.6 F 12/14/23 07:43 Pulse 68 12/14/23 07:43 Resp 20 12/14/23 07:43 BP 131/87 12/14/23 07:43 Pulse Ox 98 12/14/23 07:43 BMI result Body Mass Index 30.4 Vital signs have been reviewed and appear to be correct. Blood pressure normal. Heart rate normal. Respiratory rate normal. Temperature normal. Oxygen saturation normal. Const: General: cooperative, healthy appearing and no acute distress Orientation/consciousness: oriented to person, oriented to place, oriented to time and patient oriented x3 Limitations: no limitations HEENT: Head: Yes normocephalic and Yes atraumatic Ears: external ears normal General nose exam: Normal external nose present Face and sinus: Yes face symmetric Mouth: oropharynx normal and moist mucous membranes Throat: Yes uvula midline Eyes: Pupils: Equal, round and reactive pupils present Neck: Neck: Yes normal visual inspection and Yes supple Resp: Effort & Inspection: normal respiratory effort and able to speak in complete sentences Auscultation: clear to auscultation bilaterally Cardio: Rate: regular rate Rhythm: regular rhythm Heart sounds: S1 normal heart sound present and S2 normal heart sound present GI: Palpation (GI): Soft to palpation and nontender Auscultation: normoactive bowel sounds : General: Yes no CVA tenderness Back/Spine/Pelvis: Back: no CVA tenderness Skin: General skin exam: elasticity normal and turgor normal Neuro: General: oriented to person, oriented to place, oriented to time, patient oriented x3, moves all extremities, no focal motor deficits and CN's II-XI intact bilaterally Cranial nerves: Yes Equal, round and reactive pupils present Cognition (Neuro): normal cognition Extrem: General: Yes full ROM, Yes no pedal edema and Yes no calf tenderness Psych: Mental Status: mental status grossly normal Affect: normal affect Thought process: Normal thought process present Medical Decision Making Medical Decision Making [facility] Narrative: Patient is a 23-year-old male with history of schizophrenia, asthma, autism, hypothyroidism, hyperprolactinemia presenting to the emergency department with complaint of right-sided chest pain for several hours last night. On exam patient is awake, A+Ox3, VS WNL, afebrile, normal neurological exam without focal deficits, physical exam findings as above. Given reported symptoms and physical exam findings, initial differential includes costochondritis, musculoskeletal pain. Unlikely pneumothorax, pneumonia. Do not suspect ACS, unlikely PE as Wells score 0. Labs notable for negative troponin, no repeat on delta. X-ray notable for normal chest. My interpretation is in agreement with the radiologist's interpretation. EKG shows normal sinus rhythm, no change from prior. HEART score 1. Feel patient is stable for discharge home to follow-up with primary care provider. Return precautions discussed at bedside. Patient and family verbalized understanding of and agreement with plan. Differential Diagnosis Differential Diagnoses: The differential diagnosis associated with the presentation includes As per [facility]. Admission/Observation Consideration of admission/observation: Escalation of care including admission/observation considered Patient would have been admitted to the hospital had their work up had any findings where hospital admission was appropriate and their clinical presentation warranted hospital admission. Lab Data [facility] Lab Attestation statement: I reviewed the patient's lab results. as per [facility] 12/14/23 07:53 12/14/23 07:53 Labs: Lab Results 12/14/23 12/14/23 Range/Units 07:53 12:17 WBC 10.3 (4.8-10.8) X10*3/uL RBC 5.21 (4.60-5.80) X10*6/uL Hgb 14.0 (14.0-18.0) g/dl Hct 43.3 (42.0-52.0) % MCV 83.1 (80.0-98.0) fL MCH 26.9 L (27.0-33.0) pg MCHC 32.3 (31.0-36.0) g/dl RDW 13.6 (11.0-16.0) % Plt Count 244 (160-400) X10*3/uL MPV 9.6 (9.4-12.4) fL Immature Gran % (Auto) 0.3 (0.0-0.4) % Neut % (Auto) 66.9 (45-73) % Lymph % (Auto) 22.6 (20-40) % Hockley % (Auto) 6.5 (2-11) % Eos % (Auto) 3.2 (0-4) % Baso % (Auto) 0.5 (0-2) % Lymph # (Auto) 2.3 (1.2-4.9) X10*3/uL Hockley # (Auto) 0.7 (0.1-1.2) X10*3/uL Eos # (Auto) 0.3 (0.0-0.4) X10*3/uL Baso # (Auto) 0.1 (0.0-0.2) X10*3/uL Abs Immat Gran (auto) 0.03 (0.00-0.03) X10*3/uL Absolute Neuts (auto) 6.9 (2.0-8.3) x10*3/uL Absolute Nucleated RBC 0.000 (0.0-0.012) X10*3/uL Nucleated RBC % (auto) 0.0 (0.0-0.2) /100WBC Sodium 142 (135-145) mmol/L Potassium 3.6 (3.3-5.1) mmol/L Chloride 108 (96-108) mmol/L Carbon Dioxide 28 (22-29) mmol/L Anion Gap 10 L (12-20) BUN 19 H (9-16) mg/dL Creatinine 1.74 H (0.5-1.4) mg/dL Estim Creat Clear Calc 72.2 Estimated GFR 49 Random Glucose 133 H (60-115) mg/dL Calcium 9.3 (8.4-10.2) mg/dL Troponin I High Sens < 2.7 < 2.7 (<3.5-35.0) ng/L Independent Interpretation I performed an independent interpretation of an: EKG (Normal sinus rhythm, 63 beats per minute, normal DC interval, normal QTC, no significant change from prior) and Plain X-Ray Interpretation: Normal chest. Radiology Impression Discussion of test interpretation with radiology: I have reviewed the radiologist's reading. Radiologist Impression: XR/XR chest 2V IMPRESSION: Unremarkable examination. External Record Review External record reviewed: Inpatient record, Office record and Outpatient record Prescription Management I considered prescription management with: Pain Medication Scores Heart Score History: -0- slightly suspicious ECG: -0- normal Age: -0- < or = 45 Risk factory: -1- 1 or 2 risk factors Troponin: -0- < or = normal limit Score: 1 Risk: 1.7% Discharge Plan Discharge Clinical Impression: Atypical chest pain Patient Disposition: Home, Self-Care Instructions: Chest Pain (DC), Costochondritis (ED), Chest Wall Pain (ED) Additional Instructions: You were evaluated in the emergency department today for chest pain. Your evaluation has shown no signs of medical conditions requiring emergent intervention at this time, however we recommend that you follow-up with your primary care physician as soon as possible for further testing as an outpatient. We recommend that you take 600 mg of ibuprofen or 650 mg of Tylenol every 6 hours as needed for pain. You are being prescribed topical lidocaine patches which you can wear for up to 12 hours in a 24 hour period, do not apply heat directly over the patches. Return to the emergency department if you experience worsening or uncontrolled chest pain, shortness of breath, lightheadedness, feeling faint, loss of consciousness, nausea, vomiting, or any other concerning symptoms. Prescriptions: New lidocaine 5 % adhesive patch,medicated 1 patch topical DAILY Qty: 15 0RF Rx Instructions: leave on most painful area for up to 12 hrs No Action olanzapine [Zyprexa] 20 mg tablet 20 mg PO BEDTIME clonazepam 0.5 mg tablet 0.5 mg PO BID sertraline 50 mg tablet 50 mg PO QAM risperidone 1 mg tablet 0.5 - 1 mg PO BID PRN (Reason: Agitation) guanfacine 2 mg tablet extended release 24 hr 2 mg PO QAM olanzapine 7.5 mg tablet 7.5 mg PO DAILY levothyroxine 100 mcg tablet 100 mcg PO DAILY Caplyta 42 mg capsule 42 mg PO DAILY
[2023-12-14 12:56] LABS: Troponin-I High Sensitivity < 2.7 ng/L (<3.5-35.0)
== END 2023-12-14 14:45 | disposition home or self-care (01) ==
PROVIDERS: Registered Nurse Emergency; Emergency Provider Emergency Medicine; PCP Internal Medicine
DX: R07.89 Other chest pain (principal); J45.909 Unspecified asthma, uncomplicated; Z88.0 Allergy status to penicillin; Z88.8 Allergy status to other drugs, medicaments and biological substances
CPT/HCPCS: 36415; 71046; 80048; 84484; 85025; 93005; 99283

== ENCOUNTER → 2023-12-14 07:42 | Outpatient (BNV) | payer OTHER, SELFPAY | PROVIDERS: PCP Internal Medicine; Visit Provider Internal Medicine Cardiovascular Disease | DX: R07.9 Chest pain, unspecified (principal) | CPT/HCPCS: 93010 ==

== ENCOUNTER 2023-12-19 09:11 | Outpatient (REF) | payer OTHER, SELFPAY ==
[2023-12-19 09:29] LABS: MANUAL DIFF FLAG NO
[2023-12-19 09:36] LABS: Basophils Percent Auto 0.2 % (0-2); Eosinophils Absolute Auto 0.2 X10*3/uL (0.0-0.4); Eosinophils Percent Auto 2.9 % (0-4); Hematocrit 44.8 % (42.0-52.0); Hemoglobin 14.4 g/dl (14.0-18.0); Imm Gran Abs Auto 0.02 X10*3/uL (0.00-0.03); Imm Gran Pct Auto 0.2 % (0.0-0.4); Lymphocytes Absolute Auto 2.5 X10*3/uL (1.2-4.9); Lymphocytes Percent Auto 29.5 % (20-40); Mean Corpuscular HGB Conc 32.1 g/dl (31.0-36.0); Mean Corpuscular Hemoglobin 26.7 pg (27.0-33.0); Mean Corpuscular Volume 83.1 fL (80.0-98.0); Mean Platelet Volume 9.5 fL (9.4-12.4); Monocytes Absolute Auto 0.6 X10*3/uL (0.1-1.2); Monocytes Percent Auto 6.7 % (2-11); Neutrophils Absolute Auto 5.1 x10*3/uL (2.0-8.3); Neutrophils Percent Auto 60.5 % (45-73); Platelet Count 257 X10*3/uL (160-400); Red Blood Count 5.39 X10*6/uL (4.60-5.80); White Blood Count 8.4 X10*3/uL (4.8-10.8)
[2023-12-19 10:08] LABS: Anion Gap 9 (12-20); Blood Urea Nitrogen 13 mg/dL (9-16); Carbon Dioxide 28 mmol/L (22-29); Chloride 113 mmol/L (96-108); Estimated Glomerular Filt Rate 53; Potassium 3.8 mmol/L (3.3-5.1); Sodium 146 mmol/L (135-145)
[2023-12-19 10:15] LABS: Parathyroid Hormone Intact 196.2 pg/mL (8.7-77.1)
[2023-12-19 10:27] LABS: Uric Acid 9.2 mg/dL (3.4-7.0)
[2023-12-19 11:14] LABS: Appearance Urine Clear; Color Urine Yellow; Glucose Urine UA Negative (Negative); Leukocyte Esterase Urine Small (1+) (Negative); Nitrite Urine Negative (Negative); PH 6.5 (5.0-9.0); Specific Gravity - Urine <= 1.005 (1.005-1.025); UMIC TRIGGER UA YES; Urine Blood Negative (Negative); Urine Ketones Negative (Negative); Urine Protein Negative (Neg-Trace)
[2023-12-19 11:27] LABS: Bacteria Urine None Seen (None Seen); Hyaline Casts Urine 0-2 /LPF (0-2); RBC Urine 0-2 /HPF (0-2); Squamous Epithelial Cell Urine 0-2 /HPF (0-2); WBC Urine 0-5 /HPF (0-5)
[2023-12-19 12:05] LABS: Creatinine Urine 47.86 mg/dL; Total Protein Urine Random < 7 mg/dL (<12)
== END 2023-12-19 09:12 | disposition home or self-care (01) ==
LOC: HO.LAB 09:11
PROVIDERS: PCP Internal Medicine; Visit Provider Internal Medicine
DX: N18.31 Chronic kidney disease, stage 3a (principal)
CPT/HCPCS: 36415; 80051; 81001; 82310; 82565; 82570; 83970; 84156; 84520; 84550; 85025

== ENCOUNTER 2024-03-01 09:48 | Outpatient (REF) | payer OTHER, SELFPAY ==
[2024-03-01 11:46] LABS: Alanine Aminotransferase 40 U/L (0-40); Alkaline Phosphatase 83 U/L (39-117); Anion Gap 10 (12-20); Aspartate Amino Transferase 15 U/L (5-37); Bilirubin Total 0.2 mg/dL (0.0-1.0); Blood Urea Nitrogen 21 mg/dL (9-16); Calcium 9.5 mg/dL (8.4-10.2); Carbon Dioxide 28 mmol/L (22-29); Chloride 108 mmol/L (96-108); Cholesterol 179 mg/dL (<200); Estimated Glomerular Filt Rate 58; Glucose Random 91 mg/dL (60-115); HDL Cholesterol 25 mg/dL (>40); LDL Cholesterol Calculated 118 mg/dL (<100); Potassium 3.7 mmol/L (3.3-5.1); Sodium 142 mmol/L (135-145); Triglycerides 182 mg/dL (<150)
== END 2024-03-01 09:49 | disposition home or self-care (01) ==
LOC: HO.LAB 09:48
PROVIDERS: PCP Internal Medicine; Visit Provider Internal Medicine
DX: Z00.00 Encounter for general adult medical examination without abnormal findings (principal); E03.8 Other specified hypothyroidism; E66.01 Morbid (severe) obesity due to excess calories; I10 Essential (primary) hypertension; N18.9 Chronic kidney disease, unspecified; R74.01 Elevation of levels of liver transaminase levels
CPT/HCPCS: 36415; 80053; 80061; 84443

== ENCOUNTER 2024-06-18 08:47 | Outpatient (REF) | payer OTHER, SELFPAY ==
[2024-06-18 09:04] LABS: MANUAL DIFF FLAG NO
[2024-06-18 09:35] LABS: Basophils Percent Auto 0.4 % (0-2); Eosinophils Absolute Auto 0.2 X10*3/uL (0.0-0.4); Eosinophils Percent Auto 2.6 % (0-4); Hematocrit 48.4 % (42.0-52.0); Hemoglobin 15.6 g/dl (14.0-18.0); Imm Gran Abs Auto 0.04 X10*3/uL (0.00-0.03); Imm Gran Pct Auto 0.5 % (0.0-0.4); Lymphocytes Absolute Auto 2.4 X10*3/uL (1.2-4.9); Lymphocytes Percent Auto 28.4 % (20-40); Mean Corpuscular HGB Conc 32.2 g/dl (31.0-36.0); Mean Corpuscular Hemoglobin 27.5 pg (27.0-33.0); Mean Corpuscular Volume 85.2 fL (80.0-98.0); Mean Platelet Volume 10.3 fL (9.4-12.4); Monocytes Absolute Auto 0.5 X10*3/uL (0.1-1.2); Monocytes Percent Auto 6.2 % (2-11); Neutrophils Absolute Auto 5.2 x10*3/uL (2.0-8.3); Neutrophils Percent Auto 61.9 % (45-73); Platelet Count 265 X10*3/uL (160-400); Red Blood Count 5.68 X10*6/uL (4.60-5.80); Red Cell Distribution Width 13.8 % (11.0-16.0); White Blood Count 8.3 X10*3/uL (4.8-10.8)
[2024-06-18 09:45] LABS: Estimated Average Glucose 103 mg/dL; Hemoglobin A1C 132.5271 umol/L; Hemoglobin A1c % 5.2 % (<6.0)
[2024-06-18 10:06] LABS: Parathyroid Hormone Intact 107.6 pg/mL (8.7-77.1)
[2024-06-18 10:08] LABS: Anion Gap 12 (12-20); Blood Urea Nitrogen 19 mg/dL (9-16); Calcium 9.7 mg/dL (8.4-10.2); Carbon Dioxide 30 mmol/L (22-29); Chloride 107 mmol/L (96-108); Estimated Glomerular Filt Rate 52; Iron 60 mcg/dL (45-160); Percent Iron Saturation 22 % (15-50); Phosphorus 3.8 mg/dL (2.7-4.5); Potassium 3.6 mmol/L (3.3-5.1); Sodium 145 mmol/L (135-145); Total Iron Binding Capacity 270 mcg/dL (228-428); Unsaturated Iron Binding 210 ug/dL
[2024-06-18 10:14] LABS: Creatinine Urine 67.03 mg/dL; Microalbumin Urine < 5.0 mg/L; Total Protein Urine Random < 7 mg/dL (<12)
[2024-06-18 10:26] LABS: Appearance Urine Hazy; Color Urine Yellow; Glucose Urine UA Negative (Negative); Leukocyte Esterase Urine Small (1+) (Negative); Nitrite Urine Negative (Negative); UMIC TRIGGER UA YES; Urine Blood Trace (Negative); Urine Ketones Negative (Negative); Urine Protein Negative (Neg-Trace)
[2024-06-18 10:30] LABS: Ferritin 76 ng/mL (20-250); Vitamin D 25-OH Total 24.6 ng/mL (>30)
[2024-06-18 12:10] LABS: Bacteria Urine 1+ (None Seen); Hyaline Casts Urine 0-2 /LPF (0-2); Other Crystals Urine Present; RBC Urine 0-2 /HPF (0-2); WBC Urine 0-5 /HPF (0-5)
== END 2024-06-18 08:48 | disposition home or self-care (01) ==
LOC: HO.LAB 08:47
PROVIDERS: PCP Internal Medicine; Visit Provider Internal Medicine
DX: N18.31 Chronic kidney disease, stage 3a (principal)
CPT/HCPCS: 36415; 80051; 81001; 81003; 82043; 82306; 82310; 82565; 82570; 82728; 83036; 83540; 83735; 83970; 84100; 84156; 84520; 84550; 85025

== ENCOUNTER 2024-10-02 09:47 | Outpatient (REF) | payer OTHER, SELFPAY ==
[2024-10-02 09:57] LABS: MANUAL DIFF FLAG NO
[2024-10-02 10:35] LABS: Basophils Percent Auto 0.4 % (0-2); Eosinophils Absolute Auto 0.2 X10*3/uL (0.0-0.4); Eosinophils Percent Auto 2.4 % (0-4); Hemoglobin 15.9 g/dl (14.0-18.0); Imm Gran Abs Auto 0.04 X10*3/uL (0.00-0.03); Imm Gran Pct Auto 0.4 % (0.0-0.4); Lymphocytes Absolute Auto 2.5 X10*3/uL (1.2-4.9); Lymphocytes Percent Auto 27.8 % (20-40); Mean Corpuscular HGB Conc 32.4 g/dl (31.0-36.0); Mean Corpuscular Hemoglobin 27.7 pg (27.0-33.0); Mean Corpuscular Volume 85.4 fL (80.0-98.0); Mean Platelet Volume 10.6 fL (9.4-12.4); Monocytes Absolute Auto 0.6 X10*3/uL (0.1-1.2); Monocytes Percent Auto 6.6 % (2-11); Neutrophils Absolute Auto 5.6 x10*3/uL (2.0-8.3); Neutrophils Percent Auto 62.4 % (45-73); Platelet Count 251 X10*3/uL (160-400); Red Blood Count 5.74 X10*6/uL (4.60-5.80); White Blood Count 9.1 X10*3/uL (4.8-10.8)
--- OUTSIDE RECORDS SUMMARY | 2024-10-02 10:48 | XMS_ITS | Encounter Summary ---
Author Organization [facility] Address [address] [place] [address] Phone Care Team Providers Care Stock Patch Sawyer Name Role Phone Cassandra House MD Primary Care Provider [phone] Encounter Details Date Type Department Care Team (Late Contact Info) Description 12/23/2022 Telephone [facility] [address] [place] [address] Diana Doe Social History Tobacco Use Types Packs/Day Years Used Date Smoking Tobacco: Never Smokeless Tobacco: Never Alcohol Use Standard Drinks/Week Comments Never 0 (1 standard drink = 0.6 oz pur e alcohol) Sex and Gender Information Value Date Recorded Sex Assigned at Not on file Legal Sex Male 3:50 PM EST Gender Identity Not on file Sexual Orientation Not on file documented as of this encounter Plan of Treatment Upcoming Encounters Date Type Department Care Team (Late st Contact Info) Description 12/18/2024 3:30 PM EDT Office Visit [facility] [address] [facility] [address] [place] [address] Silviano Lynch MD [address] [facility] [address] [place] [address] documented as of this encounter Visit Diagnoses Not on filedocumented in this encounter Care Teams Stock Patch Sawyer Relationship Specialty Start Date End Date Cassandra House MD [facility] [facility] [address] [place] PCP - General Internal Medicine 08/31/22 documented as of this encounter
--- OUTSIDE RECORDS SUMMARY | 2024-10-02 10:48 | XMS_ITS | Clinical Summary ---
Author Organization [facility] Address [address] [facility] [address] [place] [address] Phone Care Team Providers Care Diamond Driller Name Role Phone Cassandra House MD Primary Care Provider [phone] Allergies Active Allergy Reactions Criticality Noted Date Comments Penicillin V 11/16/2022 Sulfa Antibiotics 11/16/2022 Medications levothyroxine (SYNTHROID, LEVOTHROID) 100 MCG tablet Take 1 tablet by mouth 1 (one) time each day 12/30/2022 Active Caplyta 42 MG capsule Take 1 tablet by mouth 1 (one) time each day 04/11/2023 Active clonazePAM (KlonoPIN) 0.5 MG tablet 07/21/2023 Active guanFACINE HCl ER 1 MG tablet sustained-releas e 24 hour 07/21/2023 Active sertraline (ZOLOFT) 50 MG tablet 07/21/2023 Active OLANZapine (ZyPREXA) 10 MG tablet 12/06/2023 Active OLANZapine (ZyPREXA) 20 MG tablet 12/06/2023 Active Active Problems Problem Noted Date Diagnosed Date Stage 3a chronic kidney disease 11/16/2022 Social History Tobacco Use Types Packs/Day Years Used Date Smoking Tobacco: Never Smokeless Tobacco: Never Tobacco Cessation:Counseling Given: Not Answered Alcohol Use Standard Drinks/Week Comments Never 0 (1 standard drink = 0.6 oz pur e alcohol) Sex and Gender Information Value Date Recorded Sex Assigned at Not on file Legal Sex Male 3:50 PM EST Gender Identity Not on file Sexual Orientation Not on file Last Filed Vital Signs Vital Sign Reading Time Taken Comments Blood Pressure 122/72 06/19/2024 3:26 PM EDT Pulse 83 06/19/2024 3:26 PM EDT Temperature - - Respiratory Rate - - Oxygen Saturation 96% 06/19/2024 3:26 PM EDT Inhaled Oxygen Concentration - - Weight 142 kg (312 lb) 06/19/2024 3:26 PM EDT Height - - Body Mass Index - - Plan of Treatment Upcoming Encounters Date Type Department Care Team (Late st Contact Info) Description 12/18/2024 3:30 PM EDT [facility] [address] [facility] [address] [place] [id number] Silviano Lynch MD [address] [facility] [address] [place] [address] Health Maintenance Due Date Last Done Comments Pneumococcal Vaccine: Pediat rics (0 to 5 Years) and At-Risk Patients (6 to 64 Years) (1 of 2 - PCV) 2006 Hepatitis B Vaccine (1 of 3 - 19+ 3-dose series) 08/05 Influenza Vaccine (#1) 2024 Insurance [facility] MEDICAID [facility] MEDICAID Care Teams Diamond Driller Relationship Specialty Start Date End Date Cassandra House MD [address] [place] [address] PCP - General Internal Medicine 08/31/22
[2024-10-02 10:59] LABS: Estimated Average Glucose 100 mg/dL; Hemoglobin A1c % 5.1 % (<6.0); Total Hemoglobin (HGBA1C) 3953.7756 umol/L
[2024-10-02 11:44] LABS: Alanine Aminotransferase 47 U/L (0-40); Albumin Level 4.1 g/dL (3.5-5.0); Alkaline Phosphatase 81 U/L (39-117); Anion Gap 11 (12-20); Aspartate Amino Transferase 16 U/L (5-37); Bilirubin Total 0.3 mg/dL (0.0-1.0); Blood Urea Nitrogen 18 mg/dL (9-16); Calcium 9.3 mg/dL (8.4-10.2); Carbon Dioxide 28 mmol/L (22-29); Chloride 108 mmol/L (96-108); Estimated Glomerular Filt Rate 52; Glucose Random 82 mg/dL (60-115); Potassium 3.7 mmol/L (3.3-5.1); Sodium 143 mmol/L (135-145); Thyroid Stimulating Hormone 1.26 uIU/mL (0.32-4.0); Total Protein 8.2 g/dL (6.5-8.0)
== END 2024-10-02 09:48 | disposition home or self-care (01) ==
LOC: HO.LAB 09:47
PROVIDERS: PCP Internal Medicine; Visit Provider Internal Medicine
DX: E03.8 Other specified hypothyroidism (principal); E66.01 Morbid (severe) obesity due to excess calories; N14.2 Nephropathy induced by unspecified drug, medicament or biological substance; R74.01 Elevation of levels of liver transaminase levels
CPT/HCPCS: 36415; 80053; 83036; 84443; 85025

== ENCOUNTER 2024-10-21 00:11 | Emergency (ER) | payer OTHER, SELFPAY ==
[2024-10-21 00:30] VITALS: BP 125/62; PULSE 90; RESP 18; TEMP 37.1; O2SAT 96; BMI 52.5
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
[2024-10-21 00:56] LABS: MANUAL DIFF FLAG NO
[2024-10-21 00:57] LABS: Basophils Percent Auto 0.4 % (0-2); Eosinophils Absolute Auto 0.2 X10*3/uL (0.0-0.4); Eosinophils Percent Auto 2.6 % (0-4); Hematocrit 43.2 % (42.0-52.0); Hemoglobin 14.6 g/dl (14.0-18.0); Imm Gran Abs Auto 0.03 X10*3/uL (0.00-0.03); Imm Gran Pct Auto 0.4 % (0.0-0.4); Lymphocytes Absolute Auto 2.1 X10*3/uL (1.2-4.9); Mean Corpuscular HGB Conc 33.8 g/dl (31.0-36.0); Mean Corpuscular Hemoglobin 27.9 pg (27.0-33.0); Mean Corpuscular Volume 82.6 fL (80.0-98.0); Mean Platelet Volume 9.8 fL (9.4-12.4); Monocytes Absolute Auto 0.6 X10*3/uL (0.1-1.2); Monocytes Percent Auto 7.2 % (2-11); Neutrophils Absolute Auto 5.5 x10*3/uL (2.0-8.3); Neutrophils Percent Auto 64.4 % (45-73); Platelet Count 220 X10*3/uL (160-400); Red Blood Count 5.23 X10*6/uL (4.60-5.80); White Blood Count 8.5 X10*3/uL (4.8-10.8)
[2024-10-21 01:17] LABS: Alanine Aminotransferase 48 U/L (0-40); Albumin Level 3.9 g/dL (3.5-5.0); Alkaline Phosphatase 71 U/L (39-117); Anion Gap 13 (12-20); Aspartate Amino Transferase 23 U/L (5-37); Bilirubin Direct < 0.2 mg/dL (0.0-0.5); Bilirubin Total 0.1 mg/dL (0.0-1.0); Blood Urea Nitrogen 24 mg/dL (9-16); Calcium 9.1 mg/dL (8.4-10.2); Carbon Dioxide 24 mmol/L (22-29); Chloride 109 mmol/L (96-108); Creatinine Clr Calc Pharmacy 94.9; Estimated Glomerular Filt Rate 52; Glucose Random 113 mg/dL (60-115); Potassium 3.8 mmol/L (3.3-5.1); Sodium 142 mmol/L (135-145); Total Protein 7.8 g/dL (6.5-8.0)
[2024-10-21 01:24] LABS: Appearance Urine Clear; Color Urine Yellow; Glucose Urine UA Negative (Negative); Leukocyte Esterase Urine Negative (Negative); Nitrite Urine Negative (Negative); Specific Gravity - Urine <= 1.005 (1.005-1.025); Urine Blood Negative (Negative); Urine Ketones Negative (Negative); Urine Protein Negative (Neg-Trace)
[2024-10-21 01:37] LABS: Amphetamine Screen Urine Not Detected (Not Detect); Barbiturates, Urine Not Detected (Not Detect); Benzodiazepines Screen Urine Not Detected (Not Detect); Buprenorphine Scr Not Detected (Not Detect); Cannabinoid Screen Urine Not Detected (Not Detect); Cocaine Screen Urine Not Detected (Not Detect); Fentanyl, urine Not Detected (Not Detect); Methadone Screen, Urine Not Detected (Not Detect); Opiate Screen Urine Not Detected (Not Detect); Oxycodone Screen Urine Not Detected (Not Detect); Phencyclidine Screen Urine Not Detected (Not Detect)
--- OUTSIDE RECORDS SUMMARY | 2024-10-21 01:56 | XMS_ITS | Clinical Summary ---
Author Organization [facility] Address [address] [place] [address] Care Team Providers Care Field Technician Name Role Phone Unavailable Primary Care Provider Unavailabl e Social History Tobacco Use Types Packs/Day Years Used Date Smoking Tobacco: Never Assessed Sex and Gender Information Value Date Recorded Sex Assigned at Not on file Gender Identity Not on file Sexual Orientation Not on file Plan of Treatment Health Maintenance Due Date Last Done Comments HPV Vaccines (1 - Male 3-dos e series) 2015 DTaP,Tdap,and Td Vaccines (1 - Tdap) 2019 Hepatitis B Vaccines (1 of 3 - 19+ 3-dose series) 2019 Depression Screening 10/12/2023 HIV Screening 10/12/2023 Hepatitis C Screening 10/12/2023 Social Influencers of Health Screening 10/12/2023 COVID-19 Vaccine (1 - 2023-2 5 season) 2024 Influenza Vaccine (#1) 2024 HIB Vaccines Aged Out No longer eligi ble based on patient's age to complete this topic Hepatitis A Vaccines Aged Out No long er eligible based on patient's age to complete this topic IPV Vaccines Aged Out No longer eligi ble based on patient's age to complete this topic MMR Vaccines Aged Out No longer eligi ble based on patient's age to complete this topic Meningococcal ACWY Vaccine Aged Out N o longer eligible based on patient's age to complete this topic Pneumococcal Vaccine: Pediat rics (0 to 5 Years) and At-Risk Patients (6 to 64 Years) Aged Out No longer eligible b ased on patient's age to complete this topic RSV Immunization Patients Un jair 20 months Aged Out No longer eligible b ased on patient's age to complete this topic Varicella Vaccines Aged Out No longer eligible based on patient's age to complete this topic
--- OUTSIDE RECORDS SUMMARY | 2024-10-21 01:56 | XMS_ITS | Encounter Summary ---
Author Organization [facility] Address [address] [place] [address] Phone Care Team Providers Care Town Planner Name Role Phone Cassandra House MD Primary Care Provider [phone] Encounter Details Date Type Department Care Team (Late st Contact Info) Description 12/23/2022 Telephone [facility] [address] [place] [address] Diana Doe Social History Tobacco Use [...] Visit [facility] [address] [facility] [address] [place] [address] Diana Lagunas ARNP [address] [facility] [address] [place] [address] documented as of this encounter Visit Diagnoses Not on filedocumented in this encounter Care Teams Town Planner Relationship Specialty Start Date End Date Cassandra House MD [address] [facility] [address] [place], [place] PCP - General Internal Medicine 08/31/22 documented as of this encounter
--- NOTE | 2024-10-21 03:43 | PC.NURSE ---
calm, cooperative with staff, resting and waiting for care team assessment.
--- NOTE | 2024-10-21 04:57 | PC.NURSE ---
sleeping comfortably, respirations nonlabored. awaiting care team--pt aware of plan.
--- NOTE | 2024-10-21 09:27 | PC.NURSE ---
Care Team at bedside.
--- NOTE | 2024-10-21 10:55 | PC.NURSE ---
Per Care Team, Pt will be d/c'd to mother today around 12p.
[2024-10-21 11:24] VITALS: BP 107/68; PULSE 77; RESP 18; TEMP 37.1; O2SAT 98
[2024-10-21 11:41] VITALS: BP 107/68; PULSE 77; RESP 18; TEMP 37.1; O2SAT 98
== END 2024-10-21 12:16 | disposition still patient (30) ==
PROVIDERS: Emergency Provider Emergency Medicine; PCP Internal Medicine
DX: R45.6 Violent behavior (principal); F91.8 Other conduct disorders; Z79.899 Other long term (current) drug therapy; Z51.81 Encounter for therapeutic drug level monitoring
CPT/HCPCS: 36415; 80048; 80076; 80307; 81003; 85025; 99284; 99285; S9485

== ENCOUNTER 2024-12-14 09:39 | Outpatient (REF) | payer OTHER, MEDICARE, SELFPAY ==
[2024-12-14 09:59] LABS: MANUAL DIFF FLAG NO
[2024-12-14 10:30] LABS: Basophils Percent Auto 0.5 % (0-2); Eosinophils Absolute Auto 0.2 X10*3/uL (0.0-0.4); Eosinophils Percent Auto 2.4 % (0-4); Hematocrit 47.5 % (42.0-52.0); Hemoglobin 15.7 g/dl (14.0-18.0); Imm Gran Abs Auto 0.04 X10*3/uL (0.00-0.03); Imm Gran Pct Auto 0.5 % (0.0-0.4); Lymphocytes Percent Auto 27.2 % (20-40); Mean Corpuscular HGB Conc 33.1 g/dl (31.0-36.0); Mean Corpuscular Hemoglobin 27.8 pg (27.0-33.0); Mean Corpuscular Volume 84.2 fL (80.0-98.0); Mean Platelet Volume 9.9 fL (9.4-12.4); Monocytes Absolute Auto 0.5 X10*3/uL (0.1-1.2); Monocytes Percent Auto 6.8 % (2-11); Neutrophils Absolute Auto 4.7 x10*3/uL (2.0-8.3); Neutrophils Percent Auto 62.6 % (45-73); Platelet Count 231 X10*3/uL (160-400); Red Blood Count 5.64 X10*6/uL (4.60-5.80); Red Cell Distribution Width 13.8 % (11.0-16.0); White Blood Count 7.5 X10*3/uL (4.8-10.8)
[2024-12-14 10:35] LABS: Appearance Urine Clear; Color Urine Yellow; Glucose Urine UA Negative (Negative); Leukocyte Esterase Urine Negative (Negative); Nitrite Urine Negative (Negative); PH 5.5 (5.0-9.0); Urine Blood Negative (Negative); Urine Ketones Negative (Negative); Urine Protein Negative (Neg-Trace)
[2024-12-14 10:42] LABS: Bacteria Urine None Seen (None Seen); Hyaline Casts Urine 0-2 /LPF (0-2); RBC Urine 0-2 /HPF (0-2); Squamous Epithelial Cell Urine 0-2 /HPF (0-2); WBC Urine 0-5 /HPF (0-5)
--- OUTSIDE RECORDS SUMMARY | 2024-12-14 10:47 | XMS_ITS | Encounter Summary ---
Author Organization [facility] Address [address] [place] [address] Phone Care Team Providers Care Coating Mixer Name Role Phone Cassandra House MD Primary Care Provider [phone] Encounter Details Date Type Department Care Team (Late Contact Info) Description 12/23/2022 Telephone [facility] [address] [place] [address] Diana Doe Social History Tobacco [...] Team (Late st Contact Info) Description 12/18/2024 Orders Only [facility] [address] [phone] Silviano Lynch MD [address] [phone] Stage 3a chronic kidney disease (HCC) 12/18/2024 3:30 PM EDT Office Visit [facility] [address] [phone] Diana Lagunas ARNP [address] [phone] documented as of this encounter Visit Diagnoses Not on filedocumented in this encounter Care Teams Coating Mixer Relationship Specialty Start Date End Date Cassandra House MD [address] [place] [address] PCP - General Internal Medicine 08/31/22 documented as of this encounter
--- OUTSIDE RECORDS SUMMARY | 2024-12-14 10:47 | XMS_ITS | Clinical Summary ---
Author Organization [facility] ity Address [address] [place] [address] Care Team Providers Care Urology Teacher Name Role Phone Unavailable Primary Care Provider Unavailabl e Social History Tobacco Use Types Packs/Day Years Used Date Smoking Tobacco: Never Assessed Sex and Gender Information Value Date Recorded Sex Assigned at Not on file Legal Sex Male 3:01 AM EST Gender Identity Not on file Sexual [...] Influencers of Health Screening 10/12/2023 COVID-19 Vaccine ( - 2023-2 5 season) 2024 Influenza Vaccine (Season Ended) 2025 HIB Vaccines Aged Out No longer eligi [...] patient's age to complete this topic Meningococcal B Vacine Aged Out No lo nger eligible based on patient's age to complete [...]
--- OUTSIDE RECORDS SUMMARY | 2024-12-14 10:47 | XMS_ITS | Clinical Summary ---
Author Organization [facility] Address [address] [facility] [address] [place] [address] Phone Care Team Providers Care Arm Rest Builder Name Role Phone Cassandra House MD Primary Care Provider [phone] Allergies Active Allergy Reactions Criticality Noted Date [...] Orders Only [facility] [address] [place] [phone] Silviano Lynch MD [address] [phone] Stage 3a chronic kidney disease (HCC) 12/18/2024 3:30 PM EDT Office Visit [facility] [address] [phone] Diana Lagunas ARNP [address] [phone] Health Maintenance Due Date Last Done Comments Pneumococcal Vaccine: Pediat rics (0 to 5 Years) and At-Risk Patients (6 to 64 Years) (1 of 2 - PCV) 2006 Hepatitis B Vaccine (1 of 3 - 19+ 3-dose series) 08/05 Influenza Vaccine (Season Ended) 2025 Insurance [place] [id number] Care Teams Arm Rest Builder Relationship Specialty Start Date End Date aCssandra House MD [address] [place] [address] [address] [place] PCP - General Internal Medicine 08/31/22
[2024-12-14 11:18] LABS: Estimated Average Glucose 105 mg/dL; Hemoglobin A1C 141.0467 umol/L; Hemoglobin A1c % 5.3 % (<6.0); Total Hemoglobin (HGBA1C) 4097.0384 umol/L
[2024-12-14 11:51] LABS: Creatinine Urine 49.72 mg/dL; Microalbumin Urine < 5.0 mg/L; Total Protein Urine Random < 7 mg/dL (<12)
[2024-12-14 12:58] LABS: Anion Gap 12 (12-20); Blood Urea Nitrogen 23 mg/dL (9-16); Calcium 9.5 mg/dL (8.4-10.2); Carbon Dioxide 27 mmol/L (22-29); Chloride 108 mmol/L (96-108); Estimated Glomerular Filt Rate 60; Glucose Random 82 mg/dL (60-115); Iron 53 mcg/dL (45-160); Magnesium 2.2 mg/dL (1.6-2.6); Percent Iron Saturation 20 % (15-50); Phosphorus 3.8 mg/dL (2.7-4.5); Potassium 3.9 mmol/L (3.3-5.1); Sodium 143 mmol/L (135-145); Total Iron Binding Capacity 267 mcg/dL (228-428); Unsaturated Iron Binding 214 ug/dL; Uric Acid 8.5 mg/dL (3.4-7.0)
[2024-12-14 13:10] LABS: Parathyroid Hormone Intact 102.8 pg/mL (8.7-77.1)
[2024-12-14 13:26] LABS: Ferritin 81 ng/mL (20-250); Vitamin D 25-OH Total 16.2 ng/mL (>30)
[2024-12-21 12:38] LABS: Cystatin C 1.82 (H); eGFR (Cystatin C) 41 (L)
== END 2024-12-14 09:40 | disposition home or self-care (01) ==
LOC: HO.LAB 09:39
PROVIDERS: PCP Internal Medicine; Visit Provider Internal Medicine
DX: N18.31 Chronic kidney disease, stage 3a (principal)
CPT/HCPCS: 36415; 80048; 81001; 82043; 82306; 82570; 82610; 82728; 83036; 83540; 83735; 83970; 84100; 84156; 84550; 85025

== ENCOUNTER 2025-03-29 09:35 | Outpatient (REF) | payer MEDICARE, SELFPAY ==
--- OUTSIDE RECORDS SUMMARY | 2025-03-29 09:42 | XMS_ITS | Clinical Summary ---
Author Organization [facility] Address [address] [facility] [address] [place] [address] Phone Care Team Providers Care Patch Finisher Name Role Phone Cassandra House MD Primary Care Provider [phone] Allergies Active Allergy Reactions Criticality Noted Date [...] OLANZapine (ZyPREXA) 20 MG tablet 12/06/2023 Active Cholecalciferol (Vitamin D3) 50 MCG (1999) tabletIndication s:Stage 3a chronic kidney disease (HCC),Vitamin D deficiency, not otherwise specified Take 2,000 Units by mouth 1 (one) time each day 30 tablet 11 12/18/2024 Active Blood Pressure Monitoring (Omron 3 Series BP Monitor) deviceIndication s:Stage 3a chronic kidney disease (HCC),Hypertensi on 1 Device 1 (one) time each day 1 each 12/18/2024 Active Active Problems Problem Noted Date Diagnosed Date Vitamin D deficiency, not otherwise specified Hypertension 12/18/2024 Stage 3a chronic kidney disease 11/16/2022 Social [...] Sign Reading Time Taken Comments Blood Pressure 115/92 12/18/2024 3:18 PM EDT Pulse 85 12/18/2024 3:18 PM EDT Temperature - - Respiratory Rate - - Oxygen Saturation 96% 06/19/2024 3:26 PM EDT Inhaled Oxygen Concentration - - Weight 146 kg (321 lb) 12/18/2024 3:18 PM EDT Height - - Body Mass Index - - Plan of Treatment Upcoming Encounters Date Type Department Care Team (Late st Contact Info) Description 06/28/2025 9:45 AM EDT Office Visit [facility] [address] [phone] Silviano Lynch MD [address] [phone] Health Maintenance Due Date Last Done Comments Hepatitis B Vaccine (1 of 3 - 19+ 3-dose series) 08/05 Pneumococcal Vaccine: Peds ( 0 to 5 Years) and At-Risk Patients (6 to 49 Years) (1 of 2 - PCV) 2019 Influenza Vaccine (#1) [address] [place] [id number] [address] [place] [id number] Care Teams Patch Finisher Relationship Specialty Start Date End Date Cassandra House MD [facility] [address] [facility] P[facility] - General Internal Medicine 08/31/22
--- OUTSIDE RECORDS SUMMARY | 2025-03-29 09:42 | XMS_ITS | Clinical Summary ---
Author Organization [facility] ity Address [address] [place] [address] Care Team Providers Care President [place] Name Role Phone Unavailable Primary Care Provider [...] 2023-2 5 season) 2024 Influenza Vaccine (#1) 2025 HIB Vaccines Aged Out No longer [...] age to complete this topic Meningococcal B Vaccine Aged Out No l onger eligible based on patient's age to complete this topic Pneumococcal Vaccine: Pediat rics (0 to 5 Years) and At-Risk Patients (6 to 49 Years) Aged Out No longer eligible b ased on patient's age to complete this topic RSV Immunization Patients Un jair 20 months Aged Out No longer eligible b ased on patient's age to complete this topic Varicella Vaccines Aged Out No longer eligible based on patient's age to complete this topic
[2025-03-29 10:41] LABS: Hemoglobin A1C 132.6058 umol/L; Total Hemoglobin (HGBA1C) 3873.6138 umol/L
[2025-03-29 11:24] LABS: Alanine Aminotransferase 45 U/L (0-40); Albumin Level 4.1 g/dL (3.5-5.0); Alkaline Phosphatase 83 U/L (39-117); Anion Gap 11 (12-20); Aspartate Amino Transferase 16 U/L (5-37); Blood Urea Nitrogen 18 mg/dL (9-16); Calcium 9.0 mg/dL (8.4-10.2); Carbon Dioxide 28 mmol/L (22-29); Chloride 110 mmol/L (96-108); Cholesterol 167 mg/dL (<200); Estimated Glomerular Filt Rate 57; HDL Cholesterol 27 mg/dL (>40); Potassium 3.9 mmol/L (3.3-5.1); Sodium 145 mmol/L (135-145); Total Protein 7.4 g/dL (6.5-8.0); Triglycerides 113 mg/dL (<150)
== END 2025-03-29 09:36 | disposition home or self-care (01) ==
LOC: HO.LAB 09:35
PROVIDERS: PCP Internal Medicine; Visit Provider Internal Medicine
DX: Z00.01 Encounter for general adult medical examination with abnormal findings (principal); E03.8 Other specified hypothyroidism; N14.2 Nephropathy induced by unspecified drug, medicament or biological substance; R74.01 Elevation of levels of liver transaminase levels
CPT/HCPCS: 36415; 80053; 80061; 83036

== ENCOUNTER 2025-06-25 09:16 | Outpatient (REF) | payer MEDICARE, SELFPAY ==
[2025-06-25 09:38] LABS: MANUAL DIFF FLAG NO
--- OUTSIDE RECORDS SUMMARY | 2025-06-25 10:07 | XMS_ITS | Clinical Summary ---
Author Organization [facility] Address [address] [facility] [address] [place] [address] Phone Care Team Providers Care Air Bag Buffer Name Role Phone Cassandra House MD Primary Care Provider [phone] Allergies Active Allergy Reactions Criticality Noted Date [...] 12/18/2024 Stage 3a chronic kidney disease 11/16/2022 Encounters Date Type Department Care Team Description 05/13/2025 Orders Only [facility] [address] [phone] Rosenana LagunasferHOLLI Stage 3a chronic kidney disease (HCC); Vitamin D deficiency, not otherwise specified; Hypertension from Last 3 Months Social History Tobacco Use Types Packs/Day Years [...] Office Visit [facility] [address] [phone] Silviano Lynch MD [address] [phone] Health Maintenance Due Date Last Done Comments Hepatitis B Vaccine (1 of 3 - 19+ 3-dose series) 08/05 Pneumococcal Vaccine: Peds ( 0 to 5 Years) and At-Risk Patients (6 to 49 Years) (1 of 2 - PCV) 2019 Influenza Vaccine (#1) 2025 Insurance Medicare Medicaid [place] Care Teams Air Bag Buffer Relationship Specialty Start Date End Date Cassandra House MD [address] [place] [address] [place] PCP - General Internal Medicine 08/31/22
--- OUTSIDE RECORDS SUMMARY | 2025-06-25 10:07 | XMS_ITS | Encounter Summary ---
Author Organization [facility] Address [address] [place] [address] Phone Care Team Providers Care Associate Director Career Services Name Role Phone Cassandra House MD Primary Care Provider [phone] Encounter Details Date Type Department Care Team (Late st Contact Info) Description 12/23/2022 Telephone [facility] [address] [place] [address] Diana Doe Social History Tobacco Use [...] Visit [facility] [address] [phone] Silviano Lynch MD [address] [facility] [address] [place] [address] documented as of this encounter Visit Diagnoses Not on filedocumented in this encounter Care Teams Associate Director Career Services Relationship Specialty Start Date End Date Cassandra House MD [address] [place] [address] [address] [place] PCP - General Internal Medicine 08/31/22 documented as of this encounter
--- OUTSIDE RECORDS SUMMARY | 2025-06-25 10:07 | XMS_ITS | Clinical Summary ---
Author Organization [facility] ity Address [address] [place] [address] Care Team Providers Care Translator And Interpreter Name Role Phone Unavailable Primary Care Provider [...] of 3 - 19+ 3-dose series) 2019 HIV Screening 10/12/2023 Hepatitis C Screening 10/12/2023 Social Influencers of Health Screening 10/12/2023 Depression Screening 09/12/2024 COVID-19 Vaccine (1 - 2023-2 5 season) 2025 Influenza Vaccine (#1) 2025 RSV Immunization Adult Patie nts (1 - 1-dose 75+ series) 2075 HIB Vaccines Aged Out No longer eligi [...]
[2025-06-25 10:10] LABS: Hematocrit 49.1 % (42.0-52.0); Hemoglobin 15.4 g/dl (14.0-18.0); Imm Gran Abs Auto 0.03 X10*3/uL (0.00-0.03); Imm Gran Pct Auto 0.4 % (0.0-0.4); Lymphocytes Absolute Auto 2.3 X10*3/uL (1.2-4.9); Mean Corpuscular HGB Conc 31.4 g/dl (31.0-36.0); Mean Corpuscular Hemoglobin 26.8 pg (27.0-33.0); Mean Corpuscular Volume 85.5 fL (80.0-98.0); NRBC Abs Auto 0.000 X10*3/uL (0.0-0.012); NRBC Pct Auto 0.0 /100WBC (0.0-0.2); Platelet Count 246 X10*3/uL (160-400); Red Blood Count 5.74 X10*6/uL (4.60-5.80); White Blood Count 8.2 X10*3/uL (4.8-10.8)
[2025-06-25 10:44] LABS: Anion Gap 11 (12-20); Blood Urea Nitrogen 18 mg/dL (9-16); Calcium 9.8 mg/dL (8.4-10.2); Carbon Dioxide 28 mmol/L (22-29); Chloride 110 mmol/L (96-108); Potassium 3.9 mmol/L (3.3-5.1); Sodium 145 mmol/L (135-145)
[2025-06-25 10:46] LABS: Parathyroid Hormone Intact 91.7 pg/mL (8.7-77.1)
[2025-06-25 10:53] LABS: Estimated Glomerular Filt Rate 56
[2025-06-25 11:55] LABS: Total Protein Urine Random < 7 mg/dL (<12)
== END 2025-06-25 09:17 | disposition home or self-care (01) ==
LOC: HO.LAB 09:16
PROVIDERS: PCP Internal Medicine; Visit Provider Internal Medicine Nephrology
DX: I12.9 Hypertensive chronic kidney disease with stage 1 through stage 4 chronic kidney disease, or unspecified chronic kidney disease (principal); N18.31 Chronic kidney disease, stage 3a; E55.9 Vitamin D deficiency, unspecified
CPT/HCPCS: 36415; 80051; 82043; 82310; 82565; 82570; 83970; 84156; 84520; 85025